=== PATIENT | male | born 1965 | race Caucasian/White ===

== ENCOUNTER 2019-07-12 09:12 | Inpatient (IN) | payer BC, SELFPAY ==
--- NOTE | ~2019-07-12 | CT_ITS ---
EXAMINATION: CT abdomen pelvis w con DATE: 07/12/2019 10:03 INDICATION: Suprapubic abdominal pain TECHNIQUE: Computed tomography (CT) of the abdomen and pelvis was performed without intravenous contr ast. Automated exposure control and iterative reconstruction technique were employed. Exam dose: 111 8.52 mGy-cm total exam DLP. COMPARISON: None. FINDINGS: The lung bases are clear. Normal heart size. No pericardial or pleural effusion. There are scattered hepatic cysts, measuring up to 7.5 mm. Otherwise no hepatic, splenic, pancreatic or right adrenal mass lesion. Approximately 10.7 x 13 mm left adrenal mass, likely a small adrenal adenoma if there is no history o f any primary malignancy. The gallbladder is present. No gallbladder wall thickening or pericholecystic fat stranding or fluid. No bile duct or pancreatic duct dilatation. No renal mass lesion is detected. 3 mm upper pole right renal nonobstructing calculus. No other urinary tract calculus. No hydrouretero nephrosis. There is minimal atherosclerotic calcification of the abdominal aorta no abdominal aortic aneurysm. N o intraperitoneal or retroperitoneal or pelvic mass lesion or adenopathy or ascites. There is an appr oximately 8 x 14 mm likely reactive lower aortocaval node. There is thickening of the wall of the sigmoid colon. There is prominent pericolic fat stranding in t he mid sigmoid area and some focal extraluminal gas along the posterior aspect of the mid sigmoid col on. There is phlegmon and possible early abscess formation in this area. The findings are consistent with diverticulitis. There are multiple diverticula of the left colon. Normal appendix. No bowel obstruction. There are degenerative changes of the lower thoracic spine. There is prominent degenerative disease a t L4-5 and L5-S1. No suspicious osteolytic or osteoblastic lesion is noted. IMPRESSION: Sigmoid diverticulitis with focal phlegmon and possibly early up to approximately 2 x 3 cm abscess formation at the posterior mid sigmoid area, with some focal extraluminal gas Diverticulosis of the left colon Hepatic cysts 10.7 x 13 mm left adrenal mass, likely an adrenal adenoma 3 mm nonobstructing upper pole right renal calculus Dr. Miguel telephoned the results to ER physician Dr. Del Toro on 07/12/2019 at 1021 hours Reviewed, dictated and finalized at [facility]. Reviewed, dictated and finalized at [facility]. IMPRESSION: Sigmoid diverticulitis with focal phlegmon and possibly early up t o approximately 2 x 3 cm abscess formation at the posterior mid sigmoid area, w ith some focal extraluminal gas Diverticulosis of the left colon Hepatic cysts 10.7 x 13 mm left adrenal mass, likely an adrenal adenoma 3 mm nonobstructing upper pole right renal calculus Dr. Miguel telephoned the results to ER physician Dr. Del Toro on 07/12/2019 at 10 21 hours
[2019-07-12 09:18] VITALS: BP 126/75; PULSE 66; RESP 16; TEMP 36.6; O2SAT 99
--- NOTE | 2019-07-12 09:26 | ED.ABDPAIN ---
HPI - Abdominal Pain General Chief Complaint: Abdominal Pain Stated Complaint: abd pain Time Seen by Provider: 07/12/19 09:23 History of Present Illness HPI narrative: 54 yo male w/ h/o perforated diverticulitis presents with Lower abdominal pain. He has had the pain for the past 1-2 weeks. It is intermittent. No clear causitive factors noted. Alleviated when he has a bowel movement, although he frequently feels like he needs to have a bowel movement and is not able to. Over the past few days he has also had dyuria and difficulty initiating a stream. He has had some subjective fevers, no measured temperature elevation. He previously had a perforated diverticultis about 8 years ago. No surgery required at that time. Related Data Home Medications Medication Instructions Recorded Confirmed No Home Medications 07/12/19 07/12/19 Allergies Allergy/AdvReac Type Severity Reaction Status Date / Time No Known Allergies Allergy Unverified 07/12/19 09:22 Review of Systems Review of Systems: All systems reviewed & are unremarkable except as noted in HPI and below Constitutional: Constitutional: Reports fever(s) Cardiovascular: Cardiovascular: Reports chest pain Respiratory: Respiratory: Reports dyspnea Gastrointestinal: Gastrointestinal: Reports abdominal pain, Reports constipation, Denies nausea and Denies vomiting Neurologic: Denies dizziness and Denies weakness PMFSH Past Medical History Medical History (Updated 07/12/19 @ 11:11 by Thiago Del Toro MD) Diverticulitis Social History Social History Gender identity (if verbalized by the patient): Male Exam Const: General: healthy appearing, no acute distress and alert Orientation/consciousness: patient oriented x3 HENMT: Head: normal to inspection Neck: Neck: normal visual inspection and no lymphadenopathy Chest: Chest palpation & inspection: no tenderness Resp: Effort & Inspection: normal respiratory effort Auscultation: clear to auscultation bilaterally, no rales, no rhonchi and no wheezes Cardio: Jugular venous distension: no JVD Rate: regular rate Rhythm: regular rhythm Heart sounds: no murmurs GI: Inspection: non-distended GI Palp: Yes Soft to palpation, Yes Tenderness to palpation present (GI) (suprapubic), No Guarding due to palpation present (GI) and No Rebound tenderness present Auscultation: normal bowel sounds Skin: General skin exam: normal color Neuro: General: patient oriented x3 and moves all extremities Speech: normal speech Extrem: General: no edema Psych: Appearance: well kempt Affect: normal affect Course Vital Signs Vital signs: Vital Signs Temperature 36.6 C 07/12/19 09:18 Pulse Rate 66 07/12/19 09:18 Respiratory Rate 16 07/12/19 09:18 Blood Pressure 126/75 07/12/19 09:18 Pulse Oximetry 99 07/12/19 09:18 Temperature 36.6 C 07/12/19 09:18 Pulse Rate 66 07/12/19 09:18 Respiratory Rate 16 07/12/19 09:18 Blood Pressure 126/75 07/12/19 09:18 Pulse Oximetry 99 07/12/19 09:18 MDM - Abdominal Pain MDM Narrative Medical decision making narrative: He has diverticulitis a small amount of free air and possible developing abscess. Mild WBC elevation. Otherwise labs and vitals stable. He should be a good candidate for admission to the medical floor. Antibiotics and fluids ordered. Case discussed with Dr. Ortez. He will admit the patient. Medical Records Attestation: I reviewed the patient's medical records. Lab Data Attestation: I reviewed the patient's lab results. Result diagrams: 07/12/19 09:27 07/12/19 09:57 Labs: Lab Results 07/12/19 07/12/19 07/12/19 Range/Units 09:27 09:27 09:27 WBC 12.3 H (4.5-10.0) K/mm3 RBC 4.92 (4.6-6.20) M/mm3 Hgb 14.5 (14.0-18.0) g/dL Hct 43.1 (42.0-52.0) % MCV 87.6 (80-100) fl MCH 29.5 (26-34) pg MCHC 33.6 (32-36) g/dl RD
[2019-07-12 09:34] LABS: Basophils Percent Auto 0.2 % (0.2-1.2); Eosinophils Absolute Auto 0.1 K/mm3 (0-0.3); Eosinophils Percent Auto 0.5 % (0-4.4); Hematocrit 43.1 % (42.0-52.0); Hemoglobin 14.5 g/dL (14.0-18.0); Immature Granulocyte Absolute 0.05 K/mm3 (0.00-0.031); Immature Granulocyte Percent A 0.4 % (0-0.5); Lymphocytes Absolute Auto 1.37 K/mm3 (0.9-3.2); Lymphocytes Percent Auto 11.1 % (18.3-44.2); Mean Corpuscular HGB Conc 33.6 g/dl (32-36); Mean Corpuscular Hemoglobin 29.5 pg (26-34); Mean Corpuscular Volume 87.6 fl (80-100); Mean Platelet Volume 9.5 fl (7.4-10.4); Monocytes Absolute Auto 1.1 K/mm3 (0.1-0.6); Monocytes Percent Auto 8.9 % (2.6-8.5); Neutrophils Absolute Auto 9.7 K/mm3 (1.3-6.7); Neutrophils Percent Auto 78.9 % (45.5-73.1); Platelet Count Result 259 k/mm3 (150-375); Red Blood Count 4.92 M/mm3 (4.6-6.20); Red Cell Distribution Width 12.9 % (11.5-14.5); White Blood Count 12.3 K/mm3 (4.5-10.0)
[2019-07-12 09:43] LABS: Add Urine Microscopic? YES; Appearance Urine Clear (Clear); Bacteria Urine Trace /hpf; Bilirubin Urine Negative (Negative); Blood Urine Negative (Negative); Color Urine Yellow (Yellow); Glucose Urine UA Negative (Negative); Ketones Urine 1+ mg/dL (Negative); Leukocyte Esterase Ur Negative LEU/UL (Negative); Mucus Urine Moderate /lpf; Nitrate Urine Negative (Negative); Protein Urine 1+ mg/dL (Negative); Specific Grav Ur 1.026 (1.001-1.035); Squamous Epithelial Cell Urine Rare /hpf (Few); WBC Urine 0-3 /hpf
[2019-07-12 09:47] LABS: Alanine Aminotransferase 28 U/L (4-50); Albumin Level 4.1 g/dL (3.5-5.1); Alkaline Phosphatase 74 U/L (38-126); Aspartate Amino Transferase 20 U/L (17-59); Bilirubin,Total 1.1 mg/dL (0.2-1.3); Blood Urea Nitrogen 11 mg/dL (9-20); Calcium 8.8 mg/dL (8.4-10.2); Carbon Dioxide 25 mmol/L (22-30); Chloride 105 mmol/L (98-107); Estimated CRCL calculation 117 ml/min; Estimated Glomerular Filt Rate > 60; Glucose 116 mg/dL (75-110); Lipase 47 U/L (23-300); Potassium 4.2 mmol/L (3.4-5.0); Sodium 136 mmol/L (137-145)
[2019-07-12 09:58] LABS: Estimated CRCL calculation 117 ml/min; Estimated Glomerular Filt Rate > 60
--- NOTE | 2019-07-12 11:34 | PM.IMHP ---
H&P: HPI History of Present Illness Chief complaint: abd pain Narrative: Benjamin Scruggs is a 54 year old male with a reported history of perforated diverticulitis about 7-8 years ago that was treated with IV antibiotics as an inpatient at [facility]. He reportedly had a colonoscopy with no concerning findings following his previous episode of diverticulitis by a Dr. Cm in [place]. Since then, he has had no other issues until about two months ago. He reports noticing some very mild intermittent lower abdominal discomfort, but would not associate this with pain. About 1-2 weeks ago, he started noticing some mild abdominal pain that was still intermittent in the lower abdomen. He did not seek medical treatment for the pain prior to today. Over the past few days, the pain has worsened at night, which has kept him awake due to the severity. Therefore, he decided to present to the emergency department for further evaluation. CT scan of the abdomen and pelvis showed sigmoid diverticulitis with focal phlegmon and possible early abscess formation measuring about 2 x 3 cm with some focal extraluminal gas. Labs revealed leukocytosis with a white blood cell count of 12,300. He is afebrile and vital signs stable. The patient was given a dose of IV Zosyn in the emergency room and our service was consulted due to the findings of acute diverticulitis with microperforation. The patient is now being seen in the ER and reports very mild lower abdominal pain. He states the pain is worse at night, but improved this morning. He has not eaten yet today, but reports he has been tolerating a diet without any nausea, vomiting, or bloating. Reports that over the past week, his bowels have become more loose and less frequent. Denies any bloody stools. Reports having chills with temperature max at home of 99.4F. No other complaints at this time. Review of Systems Constitutional: Constitutional: Reports as per HPI, Reports chills, Denies excessive sweating, Denies fatigue, Denies fever(s), Denies headache(s) and Denies weakness Eyes: Eyes: Denies change in vision and Denies loss of vision ENT: Reports Normal hearing present, Denies dysphagia, Denies dizziness, Denies headache(s), Denies hoarseness, Denies sinus pain, Denies sinus pressure and Denies sore throat Cardiovascular: Cardiovascular: Denies chest pain, Denies syncope, Denies leg edema, Denies lightheadedness, Denies radiating jaw, neck or arm pain and Denies dyspnea Respiratory: Respiratory: Denies chest congestion, Denies cough, Denies dyspnea, Denies dyspnea on exertion and Denies wheezing Gastrointestinal: Gastrointestinal: Reports as per HPI, Reports abdominal pain (lower), Denies melena, Denies bloating, Denies hematochezia, Reports change in stool character, Reports loose stools, Denies nausea and Denies vomiting Genitourinary: Genitourinary: Reports no additional male genitourinary complaints, Denies hematuria, Denies dysuria, Denies urinary incontinence and Denies urinary urgency Musculoskeletal: Musculoskeletal: Denies deformity, Denies joint swelling, Denies radiating pain into limb and Denies tingling Integumentary/Breasts: Skin/Breast: Denies pruritus, Denies wounds and Denies jaundice Neurologic: Reports Normal hearing present, Denies confusion, Denies dizziness, Denies syncope, Denies loss of vision, Denies tingling, Denies tremor(s) and Denies weakness Psychiatric: Psychiatric: Denies anxiety, Denies confusion and Denies depression Endocrine: Endocrine: Denies cold intolerance, Denies excessive sweating and Denies heat intolerance [facility] Past Medical History Medical History Diverticulitis Episode of perforated diverticulitis with abscess about 7-8 years ago treated at [facility]. Surgical History Surgical History History of colonoscopy 7-[address] Cm in [place]. Fa
[2019-07-12 11:35] VITALS: BP 124/97; PULSE 68; RESP 18; O2SAT 99
--- NOTE | 2019-07-12 14:08 | ADMGEN ---
This patient, Benjamin Scruggs, was admitted to Medical Room 342-01. Patient/family oriented to hospital policies and general routines including ID bracelet, bed and alarms, visiting hours, pain management, procedures, bathroom and other care routines, personal items, smoking policy, room service/diet, and visiting hours. Valuables list has been completed. Information on how to activate the Rapid Response Team has been discussed. Patient/Family are encouraged to report perceived risks to care and to ask questions if they do not understand what they are told or what they should do.
[2019-07-12] MEDS: LACTATED RINGERS 1,000 ML 150 ML IV CONT ×2 (14:24→21:27)
[2019-07-12 14:34] VITALS: BP 127/81; PULSE 98; RESP 20; TEMP 36.4; O2SAT 98
[2019-07-12] MEDS: ENOXAPARIN 40 MG/0.4 ML SYRINGE SUB-Q (18:02)
[2019-07-12 20:21] VITALS: BP 118/64; PULSE 64; RESP 14; TEMP 36.4; O2SAT 98
[2019-07-12] MEDS: FAMOTIDINE 20 MG/2 ML VIAL IV PUSH (21:44)
[2019-07-13] MEDS: LACTATED RINGERS 1,000 ML 150 ML IV CONT ×3 (04:58→20:31)
[2019-07-13 05:39] VITALS: BP 122/71; PULSE 56; RESP 14; TEMP 36.3; O2SAT 97
--- NOTE | 2019-07-13 05:40 | PC.NURSE ---
intake was 2 small cups of ice chips
[2019-07-13 06:51] LABS: Basophils Percent Auto 0.4 % (0.2-1.2); Eosinophils Absolute Auto 0.1 K/mm3 (0-0.3); Hematocrit 40.5 % (42.0-52.0); Hemoglobin 13.7 g/dL (14.0-18.0); Immature Granulocyte Absolute 0.01 K/mm3 (0.00-0.031); Immature Granulocyte Percent A 0.2 % (0-0.5); Lymphocytes Absolute Auto 1.28 K/mm3 (0.9-3.2); Lymphocytes Percent Auto 23.8 % (18.3-44.2); Mean Corpuscular HGB Conc 33.8 g/dl (32-36); Mean Corpuscular Hemoglobin 29.7 pg (26-34); Mean Corpuscular Volume 87.7 fl (80-100); Mean Platelet Volume 9.7 fl (7.4-10.4); Monocytes Absolute Auto 0.5 K/mm3 (0.1-0.6); Monocytes Percent Auto 9.7 % (2.6-8.5); Neutrophils Absolute Auto 3.4 K/mm3 (1.3-6.7); Neutrophils Percent Auto 63.9 % (45.5-73.1); Platelet Count Result 226 k/mm3 (150-375); Red Blood Count 4.62 M/mm3 (4.6-6.20); Red Cell Distribution Width 12.7 % (11.5-14.5); White Blood Count 5.4 K/mm3 (4.5-10.0)
[2019-07-13 07:05] LABS: Blood Urea Nitrogen 11 mg/dL (9-20); Calcium 8.2 mg/dL (8.4-10.2); Carbon Dioxide 25 mmol/L (22-30); Chloride 104 mmol/L (98-107); Estimated CRCL calculation 106 ml/min; Estimated Glomerular Filt Rate > 60; Glucose 97 mg/dL (75-110); Sodium 135 mmol/L (137-145)
[2019-07-13] MEDS: FAMOTIDINE 20 MG/2 ML VIAL IV PUSH (10:11)
[2019-07-13] MEDS: ENOXAPARIN 40 MG/0.4 ML SYRINGE SUB-Q (10:11)
--- NOTE | 2019-07-13 11:12 | PM.PNGS ---
Progress Note: A&P Assessment and Plan (1) Diverticulitis of colon with perforation: Qualifiers: Diverticulitis bleeding: without bleeding Qualified Code(s): K57.20 - Diverticulitis of large intestine with perforation and abscess without bleeding Code(s): K57.20 - Diverticulitis of large intestine with perforation and abscess without bleeding Status: Acute Assessment and Plan: Patient doing very well. White count has decreased to normal. Exam much improved as well. Will start clear liquids and advanced to fulls. Possibly home tomorrow on low residue diet. Discussed again the possibility of elective sigmoidectomy. He will also need a colonoscopy next month. Subjective Subjective Date/Time Seen: 07/13/19 11:12 Patient reports: no new complaints, pain is less (No pain at all since I saw him last night.), no flatus and no bowel movement Review of Systems Review of Systems: All systems reviewed & are unremarkable except as noted in HPI and below Constitutional: Constitutional: Denies headache(s) ENT: Denies headache(s) Cardiovascular: Cardiovascular: Denies chest pain and Denies dyspnea Respiratory: Respiratory: Denies cough and Denies dyspnea Gastrointestinal: Gastrointestinal: Reports as per HPI Neurologic: Denies confusion and Denies headache(s) Psychiatric: Psychiatric: Denies confusion Exam Const: General: comfortable and no acute distress; No confusion Orientation/consciousness: patient oriented x3 and No confusion GI: Inspection: normal to inspection, non-distended and obesity GI Palp: Yes Soft to palpation, No Tenderness to palpation present (GI), No Guarding due to palpation present (GI) and No Rebound tenderness present Auscultation: normal bowel sounds Neuro: General: patient oriented x3, no focal motor deficits and No confusion Extrem: General: no calf tenderness and no edema Psych: Affect: normal affect Insight: Good insight present (Psych) Judgement: Good judgement present (Psych) Objective Data Vital Signs Vital Signs: Vital Signs - 24 hr 07/12/19 11:35 07/12/19 14:34 07/12/19 20:21 Temperature 36.4 C 36.4 C Pulse Rate 68 98 64 Respiratory Rate 18 20 14 Blood Pressure 124/97 H 127/81 118/64 Pulse Oximetry 99 98 98 07/13/19 05:39 Temperature 36.3 C L Pulse Rate 56 L Respiratory Rate 14 Blood Pressure 122/71 Pulse Oximetry 97 Intake/Output Intake/Output: Intake & Output 07/10/19 07/11/19 07/12/19 07/13/19 23:59 23:59 23:59 23:59 Intake Total 1100 1160 Output Total 300 Balance 800 1160 Meds/Results Medications: Active Medications Generic Name Dose Route Start Last Admin Trade Name Freq PRN Reason Stop Dose Admin Enoxaparin Sodium 40 mg 07/12/19 18:00 07/13/19 10:11 Lovenox SUB-Q 40 mg DAILY ELGIN Administration Famotidine 20 mg 07/13/19 21:00 Pepcid PO Q12HR ELGIN Piperacillin/Tazobactam/Dextrose 3.375 gm in 50 mls @ 100 mls/hr 07/12/19 18:00 07/13/19 06:10 Zosyn 3.375 Gm/D5w 50ml Pm IVPB Infused Q6H ELGIN Infusion Lactated Ringer's 1,000 mls @ 150 mls/hr 07/12/19 11:00 07/13/19 04:58 Lr - Lactated Ringers Iv IV CONT 150 mls/hr .Q6H40M ELGIN Administration Ibuprofen 800 mg in 200 mls @ 400 mls/hr 07/12/19 12:00 Caldolor 800 Mg/200 Ml IVPB Q6H PRN Pain Rated 4-6 Morphine Sulfate 2 mg 07/12/19 10:57 Morphine Sulfate Inj IV PUSH Q1HR PRN Pain 7-10 Radiology Results: ITS Impressions Abdomen/Pelvis CT 07/12/19 10:09 IMPRESSION: Sigmoid diverticulitis with focal phlegmon and possibly early up to approximately 2 x 3 cm abscess formation at the posterior mid sigmoid area, with some focal extraluminal gas Diverticulosis of the left colon Hepatic cysts 10.7 x 13 mm left adrenal mass, likely an adrenal adenoma 3 mm nonobstructing upper pole right renal calculus Dr. Miguel telephoned the results to ER physician Dr. Del Toro on
[2019-07-13 14:44] VITALS: BP 139/82; PULSE 58; RESP 16; TEMP 36.1; O2SAT 97
--- NOTE | 2019-07-13 15:49 | PCDIET ---
Nutrition Consult/Edu Complete: Pt provided education and rationale for low fiber diet. Pt typically eats B: coffee, eloy estefani sausage sandwiches, L: Ham sandwich, chips, apple, D: balanced meal. He did remark he ate a lot of cashews prior to onset of symptoms. Pt likes veggies and fruits but does not eat a lot. 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 Mentions being constantly thirsty, possibly due to working outside. Glucose was elevated at 116 yesterday. Pt may benefit from A1c lab. We reviewed low fiber foods and cooking methods appropriate for the next few weeks. Once cleared by , edu was also provided on the benefit of increasing fiber to 25-35g/day custodial. Handouts and contact info provided.
[2019-07-13] MEDS: FAMOTIDINE 20 MG TABLET PO (20:34)
[2019-07-13 22:00] VITALS: BP 127/73; PULSE 55; RESP 14; TEMP 36.2; O2SAT 99
[2019-07-14] MEDS: LACTATED RINGERS 1,000 ML 150 ML IV CONT ×2 (03:56→11:39)
[2019-07-14 05:03] VITALS: BP 136/75; PULSE 51; RESP 14; TEMP 36; O2SAT 97
[2019-07-14 05:36] LABS: Hematocrit 38.9 % (42.0-52.0); Mean Corpuscular HGB Conc 33.4 g/dl (32-36); Mean Corpuscular Hemoglobin 29.4 pg (26-34); Mean Platelet Volume 9.9 fl (7.4-10.4); Platelet Count Result 244 k/mm3 (150-375); Red Blood Count 4.42 M/mm3 (4.6-6.20); Red Cell Distribution Width 12.5 % (11.5-14.5); White Blood Count 5.8 K/mm3 (4.5-10.0)
[2019-07-14 06:00] LABS: Blood Urea Nitrogen 8 mg/dL (9-20); Calcium 8.3 mg/dL (8.4-10.2); Carbon Dioxide 27 mmol/L (22-30); Chloride 106 mmol/L (98-107); Estimated CRCL calculation 106 ml/min; Estimated Glomerular Filt Rate > 60; Glucose 93 mg/dL (75-110); Potassium 3.8 mmol/L (3.4-5.0); Sodium 137 mmol/L (137-145)
[2019-07-14] MEDS: ENOXAPARIN 40 MG/0.4 ML SYRINGE SUB-Q (08:21)
[2019-07-14] MEDS: FAMOTIDINE 20 MG TABLET PO (08:21)
--- NOTE | 2019-07-14 12:08 | PM.DS ---
DS: Admitting Diagnosis Admitting Diagnosis Admitting Diagnosis: Diverticulitis of large intestine with perforation and abscess without bleeding DS: Discharge Diagnosis Discharge Diagnosis (1) Diverticulitis of colon with perforation: Qualifiers: Diverticulitis bleeding: without bleeding Qualified Code(s): K57.20 - Diverticulitis of large intestine with perforation and abscess without bleeding Code(s): K57.20 - Diverticulitis of large intestine with perforation and abscess without bleeding Status: Acute (2) Tobacco abuse: Code(s): Z72.0 - Tobacco use Status: Acute Assessment and Plan: Cessation encouraged. DS: Summary Hospital Course Reason for hospitalization: Benjamin Scruggs is a 54 year old male with a reported history of perforated diverticulitis about 7-8 years ago that was treated with IV antibiotics as an inpatient at [facility]. He reportedly had a colonoscopy with no concerning findings following his previous episode of diverticulitis by a Dr. Cm in [place]. Since then, he has had no other issues until about two months ago. He reports noticing some very mild intermittent lower abdominal discomfort, but would not associate this with pain. About 1-2 weeks ago, he started noticing some mild abdominal pain that was still intermittent in the lower abdomen. The pain continued to worsen and he presented to the ER for further evaluation. ED workup revealed sigmiod diverticulitis with microperforation and possible early abscess formation. The patient was admitted in this setting to our service. Hospital Course: He was started on IV Zosyn, IV fluids, analgesics, and bowel rest. He showed quick improvement over the next 24 hours and was advanced on his diet. Labs show a normal WBC count today and he has been afebrile. The patient is seen today with no complaints of abdominal pain, nausea, vomiting, or bloating. Reports having bowel movements today and yesterday that were loose but no blood. He reports a significant improvement in his overall tenderness as well. No other complaints at this time. Tolerating a full liquid diet. Dr. Ortez at the bedside to also evaluate the patient. I will advance his diet today to a low fiber diet (which he received education on by the Financial Processing Clerk) and he will be okay to discharge this afternoon if he continues to tolerate the low fiber diet. Discharge instructions discussed with the patient in detail and all questions answered. Status at Discharge Functional status at discharge: independent ambulation Overall status at discharge: patient is progressing back to baseline Time Spent with Patient Time attestation: Total time spent providing and/or coordinating discharge services: Time spent: Less than 30 minutes Exam Const: General: comfortable, no acute distress, alert and awake Orientation/consciousness: patient oriented x3 GI: Inspection: non-distended GI Palp: Yes Soft to palpation, Yes Tenderness to palpation present (GI) (mildly tender in mid lower abdomen, but remarkedly improved), No Guarding due to palpation present (GI) and No Rebound tenderness present Auscultation: normal bowel sounds Neuro: General: moves all extremities and no focal motor deficits Extrem: General: no calf tenderness and no edema Psych: Mental Status: mental status grossly normal Affect: normal affect Thought process: Normal thought process present Insight: Good insight present (Psych) Judgement: Good judgement present (Psych) DS: Data Data Completed and Pending Labs on day of discharge: Labs from last 24 hours 07/14/19 07/14/19 04:48 04:48 WBC 5.8 RBC 4.42 L Hgb 13.0 L Hct 38.9 L MCV 88.0 MCH 29.4 MCHC 33.4 RDW 12.5 Plt Count 244 MPV 9.9 Sodium 137 Potassium 3.8 Chloride 106 Carbon Dioxide 27 BUN 8 L Creatinine 1.00 Estim Creat Clear Calc 106 Estimated GFR > 60 Glucose 93 Calcium 8.3 L Discharge Plan Discha
== END 2019-07-14 14:30 | disposition home or self-care (01) | DRG 392 ==
LOC: ANHED 11:33 → ANH3MED 13:30
PROVIDERS: Nurse Practitioner Family; Admitting Provider Surgery; Emergency Provider Emergency Medicine; Visit Provider Surgery
DX: K57.20 Diverticulitis of large intestine with perforation and abscess without bleeding (principal); F17.210 Nicotine dependence, cigarettes, uncomplicated
CPT/HCPCS: 36415; 74177; 80048; 80053; 81001; 83690; 85025; 85027; 96365; 99285; A9270; J1650; J2543; J7120; Q9967

== ENCOUNTER 2019-09-19 00:42 | Outpatient (CLI) | payer BC, SELFPAY ==
[2019-09-19 18:36] LABS: SARS-CoV-2 RNA PCR Negative
== END 2019-09-19 00:43 | disposition home or self-care (01) ==
LOC: ANHCOVIDDT 00:42
PROVIDERS: Visit Provider Internal Medicine Gastroenterology
DX: Z01.812 Encounter for preprocedural laboratory examination (principal); Z11.59 Encounter for screening for other viral diseases
CPT/HCPCS: 87635; C9803; U0003

== ENCOUNTER 2019-09-21 01:39 | Day surgery (SDC) | payer BC, SELFPAY ==
[2019-09-13 12:37] VITALS: BMI 32.5
[2019-09-21 07:02] VITALS: BP 108/80; PULSE 63; RESP 18; TEMP 36.2; O2SAT 98
[2019-09-21] MEDS: LACTATED RINGERS 1,000 ML 150 ML IV CONT (07:12)
--- NOTE | 2019-09-21 07:34 | P.PNAN_ITS ---
Anes - Initial Pre Proc Eval Procedure: Operation Date: 09/21/19 08:00 Proposed Procedures p Screening Colonoscopy - Nimesh Felipe DO Date/Time: 09/21/19 07:34 Surgeon: Nimesh Felipe DO Pre Op Diagnosis: neoplasm screening Patient Data Age: 54 Gender: M Height: 6 ft 3 in Weight: 115.4 kg Last Vital Signs Temp 36.2 C L 09/21/19 07:02 Pulse 63 09/21/19 07:02 Resp 18 09/21/19 07:02 BP 108/80 09/21/19 07:02 Pulse Ox 98 09/21/19 07:02 Allergies Allergy/AdvReac Type Severity Reaction Status Date / Time No Known Allergies Allergy Verified 09/21/19 07:01 Home Medications Medication Instructions Recorded Confirmed Type No Home Medications 09/13/19 09/21/19 History Patient hx anesthesia problems: none Family hx anesthesia problems: none PMFSH Past Medical History Medical History Diverticulitis Episode of perforated diverticulitis with abscess about 7-8 years ago treated at [facility]. Surgical History Surgical History History of colonoscopy 7-[address] Cm in [place]. Family History Family History Sibling Leukemia Mother Diabetes mellitus Social History Social History Social History: The patient lives at home with his . 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 Does not have an established PCP - previously was followed by Dr. Hamm. Smoking packs per day: 1 Smoking cigarettes per day: 20.0 Years smoked: 30 Smoking pack-years: 30.00 Smoking status: Current every day smoker Tobacco type: cigarettes Alcohol intake: never Substance use: never Gender identity (if verbalized by the patient): Male Spiritual care concerns: No Anes - Eval Final PreProcedure Day of Procedure 09/21/19 07:34 Patient weight: obese Heart: regular rate and rhythm Lungs: clear to auscultation Airway: Mallampati scale class II Neurological: alert and oriented Last oral intake: >/= 8 hours ASA classification: II Emergent: no Anesthetic plan: proceed Anesthesia type and monitoring: general GIVS and standard monitoring Informed Consent: The patient's anesthetic plan and its attendant risks and benefits were discussed with the patient/family/POA. Questions were solicited and answers provided to the satisfaction of the patient/family/POA.
--- NOTE | 2019-09-21 08:20 | PM.IMHP ---
H&P: [facility] History of Present Illness Date/Time: 09/21/19 08:20 Chief complaint: neoplasm screening Narrative: This very pleasant gentleman's here for colonoscopy. This very pleasant gentleman seen at the request of the primary physician. The patient examined and chart review. Impression: History of diverticulitis. The patient is here for screening colonoscopy. Tobacco abuse. Recommendation: Colonoscopy. History: For pleasant gentleman is a negative GI review systems. He has a history of diverticulitis with abscess. He is here for screening colonoscopy. The patient does have history of occasional shortness of breath. Physical examination: General: very pleasant patient in no acute distress. HEENT: Head was normocephalic sclerae is clear mouth without masses neck was supple. Heart: Rate rhythm regular without S3 or S4. Lungs: CTA. Abdomen: Soft with no guarding or rigidity. Bowel sounds were active. Neurologic: Cranial nerves 2 through 12 intact. No focal defects. No clonus. Musculoskeletal system: Revealed no joint tenderness or swelling no muscle atrophy. Extremities: Reveal no significant edema. Skin: Warm and dry with normal turgor. Mental status: intact. Patient is alert and oriented. Review of Systems Review of Systems: All systems reviewed & are unremarkable except as noted in HPI and below PMFSH Past Medical History Medical History Diverticulitis Episode of perforated diverticulitis with abscess about 7-8 years ago treated at [facility]. Surgical History Surgical History History of colonoscopy 7-[address] Cm in [place]. Family History Family History Sibling Leukemia Mother Diabetes mellitus Social History Social History Social History: The patient lives at home with his . 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 Does not have an established PCP - previously was followed by Dr. Hamm. Smoking packs per day: 1 Smoking cigarettes per day: 20.0 Years smoked: 30 Smoking pack-years: 30.00 Smoking status: Current every day smoker Tobacco type: cigarettes Alcohol intake: never Substance use: never Gender identity (if verbalized by the patient): Male Spiritual care concerns: No Meds Home Medications and Allergies Home Medications Medication Instructions Recorded Confirmed Type No Home Medications 09/13/19 09/21/19 History Allergies Allergy/AdvReac Type Severity Reaction Status Date / Time No Known Allergies Allergy Verified 09/21/19 07:01 Vital Signs Vital Signs - 24 hr 09/21/19 07:02 Temperature 36.2 C L Pulse Rate 63 Respiratory Rate 18 Blood Pressure 108/80 Pulse Oximetry 98
[2019-09-21 08:42] VITALS: BP 110/84; PULSE 56; RESP 20; O2SAT 97
[2019-09-21 08:52] VITALS: BP 124/92; PULSE 54; RESP 13; O2SAT 97
[2019-09-21 09:02] VITALS: BP 121/95; PULSE 57; RESP 13; O2SAT 100
== END 2019-09-21 09:15 | disposition home or self-care (01) ==
PROVIDERS: Referring Provider Surgery; Visit Provider Internal Medicine Gastroenterology
PROC: 0DJD8ZZ Inspection of Lower Intestinal Tract, Via Natural or Artificial Opening Endoscopic (ICD-10-PCS; CPT 45378; principal; 2019-09-21 08:00)
DX: Z12.11 Encounter for screening for malignant neoplasm of colon (principal); K57.30 Diverticulosis of large intestine without perforation or abscess without bleeding; K64.8 Other hemorrhoids; Z87.19 Personal history of other diseases of the digestive system; F17.210 Nicotine dependence, cigarettes, uncomplicated
CPT/HCPCS: 45378; J2001; J2704; J7120

== ENCOUNTER 2021-09-27 05:13 | Inpatient (IN) | payer BC, SELFPAY ==
--- NOTE | ~2021-09-27 | CT_ITS ---
EXAMINATION: CT abdomen pelvis w con DATE: 09/28/2021 13:53 INDICATION: Right lower quadrant abdominal pain. Diverticulitis. TECHNIQUE: Computed tomography (CT) of the abdomen and pelvis was performed with 100 mL Omnipaque 350 intravenous contrast. Automated exposure control and iterative reconstruction technique were employe d. The dose-length product was 1431.99 mGy-cm. COMPARISON: CT abdomen and pelvis 09/27/2021 FINDINGS: The visualized portions of the lung bases demonstrate mild atelectasis. No pleural effusion . The heart size is normal. No pericardial effusion. There is an 8 mm cyst in the liver. The gallblad terry is normal. There is a 13 mm low-attenuation lesion in the spleen, likely benign. The pancreas and and right adrenal gland are normal. There is a 12 mm mass in left adrenal gland measuring low-attenu ation the prior CT, consistent with an adenoma. The kidneys are normal. There are scattered diverticu la in the colon. There is wall thickening of sigmoid colon. There is fluid and gas in the mesentery a djacent to the sigmoid colon. There is fluid and gas in the peritoneum on the right. There is a large volume of free intraperitoneal gas. There is fat stranding in the perisigmoid region and right lower quadrant. There is wall thickening of distal ileum, consistent with peritonitis. There is prominent fat in right inguinal canal that may be a hernia. There are no pathologically enlarged lymph nodes. T here is a left hydrocele. There is severe lumbar spondylosis. There is a chronic anterior wedging of multiple lower thoracic vertebral bodies. IMPRESSION: 1. Perforated sigmoid diverticulitis with worsened large volume of free intraperitoneal gas, worsened free fluid in the right lower quadrant, and peritonitis involving distal ileum. Reviewed, dictated and finalized at location A. IMPRESSION: 1. Perforated sigmoid diverticulitis with worsened large volume of free intrape ritoneal gas, worsened free fluid in the right lower quadrant, and peritonitis involving distal ileum.
--- NOTE | ~2021-09-27 | CT_ITS ---
EXAMINATION: CT abdomen pelvis wo con DATE: 09/27/2021 05:58 INDICATION: Low abdominal pain. Diarrhea. TECHNIQUE: Computed tomography (CT) of the abdomen and pelvis was performed without intravenous contr ast. Automated exposure control and iterative reconstruction technique were employed. The dose-length product was 1377.80 mGy-cm. COMPARISON: CT abdomen and pelvis 07/12/2019 FINDINGS: The visualized portions of the lung bases demonstrate mild atelectasis. No pleural effusion . The heart size is normal. No pericardial effusion. There is diffuse hepatic steatosis. There are cy sts in the liver measuring up to 7 mm. The gallbladder is normal. There is a 13 mm low-attenuation ma ss in the spleen that may be a cyst, hemangioma, or granulomatous disease. The pancreas and right adr enal gland are normal. There is a 14 mm mass in left adrenal gland measuring low-attenuation, consist ent with an adenoma. The kidneys are normal. There is no urolithiasis. There are scattered diverticul a in the colon. There is fat stranding around sigmoid colon with localized free intraperitoneal gas. There are other scattered small foci of free gas in the peritoneum. The appendix is normal. There is trace ascites. There is prominent fat in right inguinal canal that may be a hernia. There are no path ologically enlarged lymph nodes. There is severe lumbar spondylosis. IMPRESSION: 1. Perforated sigmoid diverticulitis. No drainable abscess. Reviewed, dictated and finalized at location A.
[2021-09-27 05:17] VITALS: BP 122/90; PULSE 92; RESP 17; TEMP 36.7; O2SAT 97
--- NOTE | 2021-09-27 05:23 | ED.ABDPAIN ---
HPI - Abdominal Pain General Chief Complaint: Abdominal Pain Stated Complaint: abd pain Time Seen by Provider: 09/27/21 05:16 Source: RN notes reviewed History of Present Illness HPI narrative: Patient presents emergency department from home for abdominal pain. Patient states pain began 2 days ago. The pain is located in the bilateral lower abdomen worse on the left and does not radiate described as sharp and stabbing denies any nausea vomiting or diarrhea he denies any fevers or chills states he has a history of both kidney stones as well as a perforated colon x2 Related Data Home Medications Medication Instructions Recorded Confirmed No Home Medications 09/13/19 09/21/19 Allergies Allergy/AdvReac Type Severity Reaction Status Date / Time No Known Allergies Allergy Verified 09/27/21 05:23 Review of Systems Review of Systems: Gen.: Denies fevers or chills ENT: Denies congestion Respiratory: Denies shortness of breath or cough CV: Denies chest pain or palpitations GI: See HPI denies burning, urgency, frequency or hematuria Musculoskeletal: Denies back pain or muscle pain Neuro: Denies numbness, tingling, weakness or focal weakness Skin: Denies rash Except as documented, all other systems reviewed and negative [facility] Past Medical History Medical History (Updated 09/27/21 @ 06:33 by Andrew Guillen DO) Diverticulitis Episode of perforated diverticulitis with abscess about 7-8 years ago treated at [facility]. Surgical History Surgical History History of colonoscopy 7-[address] Cm in [place]. Family History Family History Sibling Leukemia Mother Diabetes mellitus Social History Social History Social History: The patient lives at home with his . 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 Does not have an established PCP - previously was followed by Dr. Hamm. Smoking packs per day: 1 Smoking cigarettes per day: 20.0 Years smoked: 30 Smoking pack-years: 30.00 Smoking status: Current every day smoker Tobacco type: cigarettes Alcohol intake: never Alcohol use details: Occasional alcohol use. Not daily. Substance use: never Gender identity (if verbalized by the patient): Male Spiritual care concerns: No Exam Narrative: APPEARANCE: No acute distress, nontoxic, resting in bed HEENT: Normocephalic, atraumatic, OMM RESPIRATORY: No respiratory distress, clear to auscultation bilaterally with no rhonchi wheezing or rales CARDIOVASCULAR: RRR s murmur ABDOMINAL: Soft nondistended tender palpation right lower quadrant left lower quadrant no tenderness right upper quadrant left upper quadrant no rebound or guarding MUSCULOSKELETAl: Moves all extremities. No clubbing, cyanosis or edema. NEURO: Awake and alert. Following commands, speech normal, no focal deficits SKIN:: Warm, dry. Normal Color PSYCHIATRIC: Normal affect/mood Course Course Emergency Course: Discussed with Dr. Ortez presentation work-up agrees with consult agrees with plan for Zosyn Discussed with ISABEL Crow for Dr. Luna agrees with admission Discussed with patient and family results of workup and diagnosis. Discussed need for admission. Patient and family understand and agree to current treatment plan Vital Signs Vital signs: Vital Signs Temperature 98.0 F 09/27/21 05:17 Pulse Rate 92 09/27/21 05:17 Respiratory Rate 17 09/27/21 05:17 Blood Pressure 122/90 09/27/21 05:17 Pulse Oximetry 97 09/27/21 05:17 Oxygen Delivery Room Air 09/27/21 05:17 Temperature 98.0 F 09/27/21 06:53 Pulse Rate 75 09/27/21 06:53 Respiratory Rate 19 09/27/21 06:53 Blood Pressure 134/81 09/27/21 06:53 Pulse Oximetry 97 09/27/21 06:53 Oxygen Delivery Room Air 09/27/21 05:17 MDM - Abdominal Pain Lab D
[2021-09-27] MEDS: MORPHINE SULFATE (*CRX) 4 MG/ML INJ IV PUSH ×6 (05:26→20:23)
[2021-09-27] MEDS: SODIUM CHLORIDE 0.9% IV 1,000 ML 999 ML IV CONT (05:26)
[2021-09-27 05:35] LABS: Basophils Percent Auto 0.2 % (0.2-1.2); Eosinophils Absolute Auto 0.1 K/mm3 (0-0.3); Eosinophils Percent Auto 0.7 % (0-4.4); Hematocrit 46.8 % (42.0-52.0); Immature Granulocyte Absolute 0.07 K/mm3 (0.00-0.031); Immature Granulocyte Percent A 0.5 % (0-0.5); Lymphocytes Percent Auto 5.9 % (18.3-44.2); Mean Corpuscular HGB Conc 34.2 g/dl (32-36); Mean Corpuscular Hemoglobin 29.7 pg (26-34); Mean Platelet Volume 9.4 fl (7.4-10.4); Monocytes Absolute Auto 1.1 K/mm3 (0.1-0.6); Monocytes Percent Auto 7.1 % (2.6-8.5); Neutrophils Percent Auto 85.6 % (45.5-73.1); Platelet Count Result 261 k/mm3 (150-375); Red Blood Count 5.38 M/mm3 (4.6-6.20); Red Cell Distribution Width 12.9 % (11.5-14.5); White Blood Count 15.1 K/mm3 (4.5-10.0)
[2021-09-27 05:42] LABS: Alanine Aminotransferase 21 U/L (6-50); Albumin Level 4.3 g/dL (3.5-5.1); Alkaline Phosphatase 91 U/L (38-126); Anion Gap 12 mmol/L (8-16); Aspartate Amino Transferase 21 U/L (17-59); Blood Urea Nitrogen 17 mg/dL (9-20); Calcium 8.7 mg/dL (8.4-10.2); Carbon Dioxide 20 mmol/L (22-30); Chloride 105 mmol/L (98-107); Estimated CRCL calculation 94 ml/min; Estimated Glomerular Filt Rate > 60; Glucose 130 mg/dL (65-110); Lipase 25 U/L (23-300); Potassium 4.2 mmol/L (3.4-5.0); Sodium 137 mmol/L (137-145)
--- NOTE | 2021-09-27 06:38 | PC.NURSE ---
Patient aware of need for urine specimen, states he is unable to provide one at this time. Patient a/ox4, refusing straight cath.
[2021-09-27 06:53] VITALS: BP 134/81; PULSE 75; RESP 19; TEMP 36.7; O2SAT 97
[2021-09-27 07:04] LABS: Lactic Acid Reflex 1.3 mmol/L (0.7-2.0)
[2021-09-27 07:09] LABS: Appearance Urine Clear (Clear); Bilirubin Urine 2+ (Negative); Blood Urine Trace-lysed (Negative); Color Urine Yellow (Yellow); Glucose Urine UA Negative (Negative); Ketones Urine 4+ mg/dL (Negative); Leukocyte Esterase Ur Negative LEU/UL (Negative); Nitrate Urine Negative (Negative); Protein Urine 1+ mg/dL (Negative); Specific Grav Ur >= 1.030 (1.001-1.035); pH Urine 5.5 (5.0-9.0)
[2021-09-27 07:16] LABS: Add Urine Microscopic? YES; Mucus Urine Heavy /lpf; Squamous Epithelial Cell Urine Occasional /hpf (Few)
--- NOTE | 2021-09-27 07:25 | ADMGEN ---
This patient, Benjamin Scruggs, was admitted to Medical Room 248-. Patient/family oriented to hospital policies and general routines including ID bracelet, bed and alarms, visiting hours, pain management, procedures, bathroom and other care routines, personal items, smoking policy, room service/diet, and visiting hours. Information on how to activate the Rapid Response Team has been discussed. Patient/Family are encouraged to report perceived risks to care and to ask questions if they do not understand what they are told or what they should do.
--- NOTE | 2021-09-27 07:36 | PM.IMHP ---
H&P: HPI History of Present Illness Date/Time: 09/27/21 07:36 Chief Complaint: Abdominal pain Narrative: 56-year-old male with past medical history significant for kidney stones, obesity, diverticulitis with perforation x2 and previous colonic abscess secondary to diverticulitis is presenting with abdominal pain for the last week. He states over the last 2 days it has gotten significantly worse, and is now a sharp and stabbing in his lower abdomen. He denies any fevers or chills. He does admit to some nausea with emesis. He did have an episode of diarrhea as well. He also states he has been urinating less frequently and is concerned that he might be dehydrated. 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 He is hoping to avoid surgery, but was told that if this happened again he likely would need a partial colectomy. He did have this episode about 10 years ago, around 2012, at [facility], during that time he also had an associated abscess that required drainage. He had a recurrence at [facility] in July of 2019. In 2019, he was started on Zosyn and bowel rest. He was noted to have micro perforation with his diverticulitis and possible abscess. His symptoms improved on antibiotics and bowel rest, diet was advanced as tolerated. He was discharged in good condition with outpatient follow-up. Did have a colonoscopy that did not seem to indicate any other etiology of his recurrent diverticulitis with perforation other than the diverticulosis. In the ER, CT scan was done that did show the diverticulitis with perforation and free peritoneal air. No fluid collection noted. He was started on Zosyn, General surgery was consulted, he was made NPO and given morphine for pain control. He did develop some heartburn symptoms and had an episode of emesis after which he stated he felt much better. He is now mainly complaining of being extremely thirsty, admits to continued abdominal pain but states it is much better with the morphine. Review of Systems Review of Systems: 12 point review of systems was assessed and was negative except as noted in the HPI [facility] Past Medical History Medical History Diverticulitis Episode of perforated diverticulitis with abscess about 7-8 years ago treated at [facility]. Surgical History Surgical History History of colonoscopy 7-[address] Cm in [place]. Family History Family History Sibling Leukemia Mother Diabetes mellitus Social History Social History Social History: The patient lives at home with his . 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 Does not have an established PCP - previously was followed by Dr. Hamm. Smoking packs per day: 1 Smoking cigarettes per day: 20.0 Years smoked: 30 Smoking pack-years: 30.00 Smoking status: Current every day smoker Alcohol intake: never Alcohol use details: Occasional alcohol use. Not daily. Substance use: never Gender identity (if verbalized by the patient): Male Spiritual care concerns: No Meds Home Medications and Allergies Home Medications Medication Instructions Recorded Confirmed Type No Home Medications 09/13/19 09/27/21 History Allergies Allergy/AdvReac Type Severity Reaction Status Date / Time No Known Allergies Allergy Verified 09/27/21 05:23 Vital Signs Vital Signs - 24 hr 09/27/21 05:17 09/27/21 06:53 Temperature 98.0 F 98.0 F Pulse Rate 92 75 Respiratory Rate 17 19 Blood Pressure 122/90 134/81 Pulse Oximetry 97 97 Oxygen Delivery Room Air Exam Narrative: General: No acute distress, alert and oriented per baseline HEENT: Atraumatic, normocephalic, mucous membranes moist C
[2021-09-27 08:10] VITALS: BMI 33.6
[2021-09-27] MEDS: PANTOPRAZOLE SODIUM IV 40 MG VIAL IV PUSH (09:22)
[2021-09-27] MEDS: ONDANSETRON INJ 4 MG/2 ML VIAL IV PUSH (11:40)
[2021-09-27] MEDS: SODIUM CHLORIDE 0.9% IV 1,000 ML 125 ML IV CONT ×2 (11:40→21:30)
[2021-09-27 14:00] VITALS: BP 127/70; PULSE 78; RESP 18; TEMP 37; O2SAT 96
--- NOTE | 2021-09-27 14:53 | PM.CNGS ---
Assessment and Plan Assessment and plan (1) Diverticulitis of colon with perforation: Code(s): K57.20 - Diverticulitis of large intestine with perforation and abscess without bleeding Status: Acute Assessment and Plan: recurrent episode of diverticulitis. I explained to the patient that the plan is still the same as 2 years ago. He is still pretty uncomfortable despite the morphine. Will start IV ibuprofen q.6 hours on a scheduled dose. Morphine will still be available p.r.n.. He can have some ice chips but I would keep him NPO for now. We did briefly discuss elective sigmoidectomy once his infection has healed. 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 I explained that this could certainly be done assuming he does not require surgery or have other complications from this episode. He just had a colonoscopy 2 years ago so I do not think he would need to have that repeated. Thank you for asking me to see this patient in consultation. I will follow along with you. (2) Tobacco abuse: Code(s): Z72.0 - Tobacco use Status: Chronic Assessment and Plan: Advised to quit. History of Present Illness Consult details Consult date: 09/27/21 Reason for consult: abdominal pain Requesting physician: Andrew Guillen DO Narrative: patient is a 56-year-old man whom I had seen in July of 2019 for acute diverticulitis. He had been in the hospital and this had resolved with antibiotic treatment and bowel rest. We discussed elective laparoscopic sigmoidectomy but did not follow through with the surgery. Patient did have a colonoscopy 09/21/2019 which did not show any sign of malignancy. Did show diverticulosis. Patient started having abdominal pain evening. It was in the suprapubic area. It got worse and then around 4:00 a.m. this morning he drank quite a bit of water and developed excruciating pain. He came to the emergency room. He was noted to have diffuse tenderness and leukocytosis. CT scan showed evidence of recurrent diverticulitis with a small focus of intraperitoneal air in the area the sigmoid colon. He is admitted now for bowel rest and IV antibiotics. He is seen in consultation. This is actually the 3rd significant case of diverticulitis that he has experienced. The 1st was 9 or 10 years ago. Review of Systems Review of Systems: All systems reviewed & are unremarkable except as noted in HPI and below ( HPI and those items noted below) Constitutional: Constitutional: Denies chills and Denies fever(s) Cardiovascular: Cardiovascular: Denies chest pain, Denies diaphoresis, Denies dyspnea and Denies paroxysmal nocturnal dyspnea Respiratory: Respiratory: Denies chest congestion, Denies cough and Denies dyspnea Integumentary/Breasts: Skin/Breast: Denies lesions and Denies rash PMFSH Past Medical History Medical History (Updated 09/27/21 @ 15:00 by Tha Ortez MD) Diverticulitis Episode of perforated diverticulitis with abscess about 7-8 years ago treated at [facility]. Surgical History Surgical History History of colonoscopy 7-[address] Cm in [place]. Family History Family History Sibling Leukemia Mother Diabetes mellitus Social History Social History Social History: The patient lives at home with his . 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 Does not have an established PCP - previously was followed by Dr. Hamm. Smoking packs per day: 1 Smoking cigarettes per day: 20.0 Years smoked: 30 Smoking pack-years: 30.00 Smoking status: Current every day smoker Alcohol intake: never Alcohol use details: Occasional alcohol use. Not daily. Substance use: never Gender identity (if verbalized by the patient): Male Spir
[2021-09-27] MEDS: ENOXAPARIN 40 MG/0.4 ML SYRINGE SUB-Q (17:22)
[2021-09-27] MEDS: IBUPROFEN IV 800 MG/200 ML 800 MG/200 ML BAG 400 MG IVPB ×2 (17:22→23:32)
[2021-09-27 19:56] VITALS: BP 126/74; PULSE 76; RESP 16; TEMP 36.4; O2SAT 94
[2021-09-27] MEDS: HYDROmorphone HCL INJ (*CRX) 1 MG/ML SYR 0.5 MG IV PUSH ×2 (21:10→23:49)
[2021-09-28] VITALS (15 sets, daily range): BP systolic 123–154; BP diastolic 75–96; PULSE 70–95; RESP 10–20; TEMP 36.4–37.7; O2SAT 92–96
[2021-09-28] MEDS: HYDROmorphone HCL INJ (*CRX) 1 MG/ML SYR 0.5 MG IV PUSH ×3 (04:08→11:29)
[2021-09-28 05:11] LABS: Basophils Percent Auto 0.1 % (0.2-1.2); Eosinophils Percent Auto 0.2 % (0-4.4); Hematocrit 41.1 % (42.0-52.0); Hemoglobin 13.8 g/dL (14.0-18.0); Immature Granulocyte Absolute 0.07 K/mm3 (0.00-0.031); Immature Granulocyte Percent A 0.5 % (0-0.5); Lymphocytes Absolute Auto 0.65 K/mm3 (0.9-3.2); Lymphocytes Percent Auto 4.6 % (18.3-44.2); Mean Corpuscular HGB Conc 33.6 g/dl (32-36); Mean Corpuscular Hemoglobin 29.7 pg (26-34); Mean Corpuscular Volume 88.4 fl (80-100); Mean Platelet Volume 9.6 fl (7.4-10.4); Monocytes Absolute Auto 0.9 K/mm3 (0.1-0.6); Neutrophils Absolute Auto 12.6 K/mm3 (1.3-6.7); Neutrophils Percent Auto 88.6 % (45.5-73.1); Platelet Count Result 210 k/mm3 (150-375); Red Blood Count 4.65 M/mm3 (4.6-6.20); Red Cell Distribution Width 13.5 % (11.5-14.5); White Blood Count 14.2 K/mm3 (4.5-10.0)
[2021-09-28 05:22] LABS: Alanine Aminotransferase 16 U/L (6-50); Albumin Level 3.4 g/dL (3.5-5.1); Alkaline Phosphatase 78 U/L (38-126); Anion Gap 9 mmol/L (8-16); Aspartate Amino Transferase 13 U/L (17-59); Bilirubin,Total 1.9 mg/dL (0.2-1.3); Blood Urea Nitrogen 20 mg/dL (9-20); Calcium 8.1 mg/dL (8.4-10.2); Carbon Dioxide 20 mmol/L (22-30); Chloride 109 mmol/L (98-107); Estimated CRCL calculation 96 ml/min; Estimated Glomerular Filt Rate > 60; Glucose 125 mg/dL (65-110); Sodium 138 mmol/L (137-145)
[2021-09-28] MEDS: IBUPROFEN IV 800 MG/200 ML 800 MG/200 ML BAG 400 MG IVPB ×2 (06:21→12:43)
[2021-09-28] MEDS: ENOXAPARIN 40 MG/0.4 ML SYRINGE SUB-Q (08:13)
[2021-09-28] MEDS: PANTOPRAZOLE SODIUM IV 40 MG VIAL IV PUSH (08:13)
[2021-09-28] MEDS: SODIUM CHLORIDE 0.9% IV 1,000 ML 125 ML IV CONT (08:14)
--- NOTE | 2021-09-28 10:30 | PM.IMPN ---
Progress Note: A&P Assessment and Plan (1) Diverticulitis of colon with perforation: Code(s): K57.20 - Diverticulitis of large intestine with perforation and abscess without bleeding Status: Acute Assessment and Plan: Diverticulitis with recurrent perforation without abscess, general surgery consult pending, 3rd episode in 10 years Continue Zosyn, NPO, IV fluids, pain control with morphine Patient was offered an elective sigmoidectomy in the past and declined, no surgical intervention necessary at this point Update: repeat CT scan ordered, worsening, OR today (2) Tobacco abuse: Code(s): Z72.0 - Tobacco use Status: Chronic Assessment and Plan: Smoking cessation discussed Plan DVT prophylaxis with SCDs GI prophylaxis with PPI Code status full code Subjective Date/time seen: 09/28/21 10:30 Interval history: Worsening abdominal pain. Surgery rec OR today. Imaging shows worsening of diverticulitis with developing free air and fluid in the pelvis. Patient in agreement with surgery. No overnight events noted. No chest pain or shortness of breath. No nausea, vomiting or diarrhea. No fevers or chills. Review of Systems Review of Systems: 12 point review of systems was assessed and was negative except as noted in the HPI Exam Narrative: Patient in the shower, then heading to the OR Objective Data Vital Signs Vital Signs: Vital Signs - 24 hr 09/27/21 14:00 09/27/21 19:56 09/27/21 20:06 Temperature 98.6 F 97.6 F Pulse Rate 78 76 Respiratory Rate 18 16 Blood Pressure 127/70 126/74 Pulse Oximetry 96 94 Oxygen Delivery Room Air 09/28/21 04:14 Temperature 97.6 F Pulse Rate 70 Respiratory Rate 12 Blood Pressure 123/75 Pulse Oximetry 95 Oxygen Delivery Intake/Output Intake/Output: Intake & Output 09/25/21 09/26/21 09/27/21 09/28/21 23:59 23:59 23:59 23:59 Intake Total 2590 1250 Balance 2590 1250 Meds/Results Medications: Active Medications Generic Name Dose Route Start Last Admin Trade Name Freq PRN Reason Stop Dose Admin Enoxaparin Sodium 40 mg 09/28/21 09:00 09/28/21 08:13 Enoxaparin 40 Mg/0.4 Ml Syringe SUB-Q 40 mg DAILY ELGIN Administration Hydromorphone HCl 0.5 mg 09/27/21 21:01 09/28/21 07:41 Hydromorphone Hcl Inj (*Crx) 1 Mg/Ml Syr IV PUSH 0.5 mg Q3H PRN Administration Pain Rated 7-10 Piperacillin/Tazobactam/Dextrose 3.375 gm in 50 mls @ 100 mls/hr 09/27/21 12:00 09/28/21 05:16 Zosyn 3.375 Gm/D5w 50ml Pm IVPB 100 mls/hr Q6H ELGIN Administration Sodium Chloride 1,000 mls @ 125 mls/hr 09/27/21 06:30 09/28/21 08:14 Normal Saline Iv IV CONT 125 mls/hr .Q8H ELGIN Administration Ibuprofen 800 mg in 200 mls @ 400 mls/hr 09/27/21 18:00 09/28/21 06:21 Caldolor 800 Mg/200 Ml IVPB 400 mls/hr Q6HR ELGIN Administration Morphine Sulfate 2 mg 09/27/21 14:49 Morphine Sulfate (*Crx) 2 Mg/Ml Inj IV PUSH Q2H PRN Pain Rated 4-6 Ondansetron HCl 4 mg 09/27/21 11:11 09/27/21 11:40 Ondansetron Inj 4 Mg/2 Ml Vial IV PUSH 4 mg Q4H PRN Administration Nausea And Vomiting Pantoprazole Sodium 40 mg 09/27/21 09:00 09/28/21 08:13 Pantoprazole Sodium Iv 40 Mg Vial IV PUSH 40 mg QAM ELGIN Administration Radiology Results: ITS Impressions Abdomen/Pelvis CT 09/27/21 08:07 IMPRESSION: 1. Perforated sigmoid diverticulitis. No drainable abscess. Labs Labs: Laboratory Results - last 24 hr 09/28/21 09/28/21 04:49 04:49 WBC 14.2 H RBC 4.65 Hgb 13.8 L Hct 41.1 L MCV 88.4 MCH 29.7 MCHC 33.6 RDW 13.5 Plt Count 210 MPV 9.6 Immature Gran % (Auto) 0.5 Neut % (Auto) 88.6 H Lymph % (Auto) 4.6 L [place] % (Auto) 6.0 Eos % (Auto) 0.2 Baso % (Auto) 0.1 L Lymph # (Auto) 0.65 L [place] # (Auto) 0.9 H Eos # (Auto) 0.0 Baso # (Auto) 0.0 Abs Immat Gran (auto) 0.07 H Absolute Neuts (auto) 12.6 H Absolute Nucle
--- NOTE | 2021-09-28 13:06 | PM.PNGS ---
Progress Note: A&P Assessment and Plan (1) Diverticulitis of colon with perforation: Code(s): K57.20 - Diverticulitis of large intestine with perforation and abscess without bleeding Status: Acute Assessment and Plan: having more pain today. He was given Dilaudid by the hospitalist. This seemed to work better. I will change his narcotic analgesics to Dilaudid. I will also add gentamicin to his Zosyn antibiotics. We will get stat CT scan to evaluate right lower quadrant pain for possible abscess or other progression of his diverticulitis. (2) Tobacco abuse: Code(s): Z72.0 - Tobacco use Status: Chronic Subjective Subjective Date/Time Seen: 09/28/21 13:06 Patient reports: still having pain ( Hurts more today than yesterday. New pain in right lower quadrant) and afebrile Review of Systems Review of Systems: All systems reviewed & are unremarkable except as noted in HPI and below Constitutional: Constitutional: Reports as per HPI, Denies chills and Denies fever(s) Cardiovascular: Cardiovascular: Denies chest pain and Denies dyspnea Respiratory: Respiratory: Denies cough and Denies dyspnea Gastrointestinal: Gastrointestinal: Reports as per HPI, Reports abdominal pain, Denies heartburn, Denies diarrhea and Denies vomiting Objective Data Vital Signs Vital Signs: Vital Signs - 24 hr 09/27/21 14:00 09/27/21 19:56 09/27/21 20:06 Temperature 37.0 C 36.4 C Pulse Rate 78 76 Respiratory Rate 18 16 Blood Pressure 127/70 126/74 Pulse Oximetry 96 94 Oxygen Delivery Room Air 09/28/21 04:14 Temperature 36.4 C Pulse Rate 70 Respiratory Rate 12 Blood Pressure 123/75 Pulse Oximetry 95 Oxygen Delivery Intake/Output Intake/Output: Intake & Output 09/25/21 09/26/21 09/27/21 09/28/21 23:59 23:59 23:59 23:59 Intake Total 2590 1500 Balance 2590 1500 Meds/Results Medications: Active Medications Generic Name Dose Route Start Last Admin Trade Name Freq PRN Reason Stop Dose Admin Enoxaparin Sodium 40 mg 09/28/21 09:00 09/28/21 08:13 Enoxaparin 40 Mg/0.4 Ml Syringe SUB-Q 40 mg DAILY ELGIN Administration Gentamicin Sulfate 1 each 09/28/21 13:04 Gentamicin Pharmacy To Dose IVPB PRN PRN Kinetics Consult Hydromorphone HCl 0.5 mg 09/28/21 13:01 Hydromorphone Hcl Inj (*Crx) 1 Mg/Ml Syr IV PUSH Q2H PRN Pain Rated 4-6 Hydromorphone HCl 1 mg 09/28/21 13:01 Hydromorphone Hcl Inj (*Crx) 1 Mg/Ml Syr IV PUSH Q2H PRN Pain Rated 7-10 Piperacillin/Tazobactam/Dextrose 3.375 gm in 50 mls @ 100 mls/hr 09/27/21 12:00 09/28/21 12:43 Zosyn 3.375 Gm/D5w 50ml Pm IVPB 100 mls/hr Q6H ELGIN Administration Sodium Chloride 1,000 mls @ 125 mls/hr 09/27/21 06:30 09/28/21 08:14 Normal Saline Iv IV CONT 125 mls/hr .Q8H ELGIN Administration Ibuprofen 800 mg in 200 mls @ 400 mls/hr 09/27/21 18:00 09/28/21 12:43 Caldolor 800 Mg/200 Ml IVPB 400 mls/hr Q6HR ELGIN Administration Morphine Sulfate 2 mg 09/27/21 14:49 Morphine Sulfate (*Crx) 2 Mg/Ml Inj IV PUSH Q2H PRN Pain Rated 4-6 Ondansetron HCl 4 mg 09/27/21 11:11 09/27/21 11:40 Ondansetron Inj 4 Mg/2 Ml Vial IV PUSH 4 mg Q4H PRN Administration Nausea And Vomiting Pantoprazole Sodium 40 mg 09/27/21 09:00 09/28/21 08:13 Pantoprazole Sodium Iv 40 Mg Vial IV PUSH 40 mg QAM ELGIN Administration Radiology Results: ITS Impressions Abdomen/Pelvis CT 09/27/21 08:07 IMPRESSION: 1. Perforated sigmoid diverticulitis. No drainable abscess. Labs Labs: Laboratory Results - last 24 hr 09/28/21 09/28/21 04:49 04:49 WBC 14.2 H RBC 4.65 Hgb 13.8 L Hct 41.1 L MCV 88.4 MCH 29.7 MCHC 33.6 RDW 13.5 Plt Count 210 MPV 9.6 Immature Gran % (Auto) 0.5 Neut % (Auto) 88.6 H Lymph % (Auto) 4.6 L [place] % (Auto) 6.0 Eos % (Auto) 0.2 Baso % (Auto) 0.1 L Lymph # (Auto) 0.65 L Mon
--- NOTE | 2021-09-28 14:41 | PM.PNGS ---
Progress Note: A&P Assessment and Plan (1) Diverticulitis of colon with perforation: Code(s): K57.20 - Diverticulitis of large intestine with perforation and abscess without bleeding Status: Acute Assessment and Plan: I explained to the patient and his that his diverticulitis has gotten worse. I explained the nature of diverticulitis and perforation particularly free perforation. Offered the options of continued medical therapy which will likely result in at least 1 or more abscess is being drained and will still require prolonged treatment. Medical therapy also may fail and surgery would be required only later following failure of medical therapy. I also offered and recommended laparotomy with sigmoidectomy. This may be done with end colostomy or with anastomosis and loop ileostomy. I explained this and the usual recovery time. I explained that it would take a 2nd operation to restore intestinal continuity. After discussion with the patient and his , he wishes to go ahead with surgery today. All questions were answered. We will proceed. (2) Tobacco abuse: Code(s): Z72.0 - Tobacco use Status: Chronic Subjective Subjective Date/Time Seen: 09/28/21 14:41 Patient reports: still having pain Review of Systems Review of Systems: All systems reviewed & are unremarkable except as noted in HPI and below (HPI) Exam Const: General: comfortable, alert and awake Nutritional Appearance: overweight Orientation/consciousness: patient oriented x3 and No confusion GI: Inspection: normal to inspection and non-distended GI Palp: Yes Tenderness to palpation present (GI), Yes Guarding due to palpation present (GI) (Right lower quadrant) and No Palpable mass present Auscultation: absent bowel sounds Objective Data Vital Signs Vital Signs: Vital Signs - 24 hr 09/27/21 19:56 09/27/21 20:06 09/28/21 04:14 Temperature 36.4 C 36.4 C Pulse Rate 76 70 Respiratory Rate 16 12 Blood Pressure 126/74 123/75 Pulse Oximetry 94 95 Oxygen Delivery Room Air 09/28/21 13:48 Temperature 36.4 C Pulse Rate 76 Respiratory Rate 20 Blood Pressure 134/75 Pulse Oximetry 94 Oxygen Delivery Intake/Output Intake/Output: Intake & Output 09/25/21 09/26/21 09/27/21 09/28/21 23:59 23:59 23:59 23:59 Intake Total 2590 1750 Balance 2590 1750 Meds/Results Medications: Active Medications Generic Name Dose Route Start Last Admin Trade Name Freq PRN Reason Stop Dose Admin Enoxaparin Sodium 40 mg 09/28/21 09:00 09/28/21 08:13 Enoxaparin 40 Mg/0.4 Ml Syringe SUB-Q 40 mg DAILY ELGIN Administration Hydromorphone HCl 0.5 mg 09/28/21 13:01 Hydromorphone Hcl Inj (*Crx) 1 Mg/Ml Syr IV PUSH Q2H PRN Pain Rated 4-6 Hydromorphone HCl 1 mg 09/28/21 13:01 Hydromorphone Hcl Inj (*Crx) 1 Mg/Ml Syr IV PUSH Q2H PRN Pain Rated 7-10 Piperacillin/Tazobactam/Dextrose 3.375 gm in 50 mls @ 100 mls/hr 09/27/21 12:00 09/28/21 14:05 Zosyn 3.375 Gm/D5w 50ml Pm IVPB Infused Q6H ELGIN Infusion Sodium Chloride 1,000 mls @ 125 mls/hr 09/27/21 06:30 09/28/21 08:14 Normal Saline Iv IV CONT 125 mls/hr .Q8H ELGIN Administration Ibuprofen 800 mg in 200 mls @ 400 mls/hr 09/27/21 18:00 09/28/21 13:13 Caldolor 800 Mg/200 Ml IVPB Infused Q6HR ELGIN Infusion Gentamicin Sulfate 500 mg/ 112.5 mls @ 100 mls/hr 09/28/21 14:00 Dextrose IVPB 09/28/21 15:07 ONCE ONE Gentamicin Sulfate 500 mg/ 112.5 mls @ 100 mls/hr 09/28/21 13:13 Dextrose IVPB PRN PRN PER LEVELS Ondansetron HCl 4 mg 09/27/21 11:11 09/27/21 11:40 Ondansetron Inj 4 Mg/2 Ml Vial IV PUSH 4 mg Q4H PRN Administration Nausea And Vomiting Pantoprazole Sodium 40 mg 09/27/21 09:00 09/28/21 08:13 Pantoprazole Sodium Iv 40 Mg Vial IV PUSH 40 mg QAM ELGIN Administration Radiology Results: ITS Impressions Abdomen/Pelvis CT 09/28/21 13:54 IMPRESS
--- NOTE | 2021-09-28 14:45 | WPDHPUPDATE1 ---
History and Physical Update Update Date/Time: 09/28/21 14:45 History and Physical has been reviewed, including an updated exam of the patient. There are NO changes in the patient's condition. Risks, benefits, and alternatives have been discussed and questions answered. Patient agrees to proceed with procedure.
[2021-09-28] MEDS: HYDROmorphone HCL INJ (*CRX) 1 MG/ML SYR IV PUSH (15:37)
--- NOTE | 2021-09-28 15:47 | WPDANESEPPF ---
Anes - Initial Pre Proc Eval Procedure: Operation Date: 09/28/21 16:00 Proposed Procedures p Exploratory Laparotomy, Pos Bowel Resec - Tha Ortez MD Date/Time: 09/28/21 15:47 Surgeon: Evelin Luna DO Pre Op Diagnosis: Sigmoid diverticulitis with perforation Patient Data Age: 56 Gender: M Height: 1.91 m Weight: 122 kg Last Vital Signs Temp 36.4 C 09/28/21 13:48 Pulse 76 09/28/21 13:48 Resp 20 09/28/21 13:48 BP 134/75 09/28/21 13:48 Pulse Ox 94 09/28/21 13:48 O2 Del Method Room Air 09/27/21 20:06 Allergies Allergy/AdvReac Type Severity Reaction Status Date / Time No Known Allergies Allergy Verified 09/27/21 05:23 Home Medications Medication Instructions Recorded Confirmed Type No Home Medications 09/13/19 09/27/21 History Laboratory Tests 09/28/21 09/28/21 04:49 04:49 WBC 14.2 K/mm3 H K/mm3 (4.5-10.0) RBC 4.65 M/mm3 M/mm3 (4.6-6.20) Hgb 13.8 g/dL L g/dL (14.0-18.0) Hct 41.1 % L % (42.0-52.0) MCV 88.4 fl fl (80-100) MCH 29.7 pg pg (26-34) MCHC 33.6 g/dl g/dl (32-36) RDW 13.5 % % (11.5-14.5) Plt Count 210 k/mm3 k/mm3 (150-375) MPV 9.6 fl fl (7.4-10.4) Immature Gran % (Auto) 0.5 % % (0-0.5) Neut % (Auto) 88.6 % H % (45.5-73.1) Lymph % (Auto) 4.6 % L % (18.3-44.2) [place] % (Auto) 6.0 % % (2.6-8.5) Eos % (Auto) 0.2 % % (0-4.4) Baso % (Auto) 0.1 % L % (0.2-1.2) Lymph # (Auto) 0.65 K/mm3 L K/mm3 (0.9-3.2) [place]ie # (Auto) 0.9 K/mm3 H K/mm3 (0.1-0.6) Eos # (Auto) 0.0 K/mm3 K/mm3 (0-0.3) Baso # (Auto) 0.0 K/mm3 K/mm3 (0.0-0.1) Abs Immat Gran (auto) 0.07 K/mm3 H K/mm3 (0.00-0.031) Absolute Neuts (auto) 12.6 K/mm3 H K/mm3 (1.3-6.7) Absolute Nucleated RBC 0.0 K/mm3 K/mm3 (0.0-0.012) Nucleated RBC % 0.0 % % (0.0-0.2) Sodium 138 mmol/L mmol/L (137-145) Potassium 4.0 mmol/L mmol/L (3.4-5.0) Chloride 109 mmol/L H mmol/L (98-107) Carbon Dioxide 20 mmol/L L mmol/L (22-30) Anion Gap 9 mmol/L mmol/L (8-16) BUN 20 mg/dL mg/dL (9-20) Creatinine 1.10 mg/dL mg/dL (0.7-1.3) Estim Creat Clear Calc 96 ml/min ml/min Estimated GFR > 60 (59 - ) Glucose 125 mg/dL H mg/dL (65-110) Calcium 8.1 mg/dL L mg/dL (8.4-10.2) Total Bilirubin 1.9 mg/dL H mg/dL (0.2-1.3) AST 13 U/L L U/L (17-59) ALT 16 U/L U/L (6-50) Alkaline Phosphatase 78 U/L U/L (38-126) Total Protein 7.0 g/dL g/dL (6.3-8.2) Albumin 3.4 g/dL L g/dL (3.5-5.1) Patient hx anesthesia problems: none Family hx anesthesia problems: none Results Review: All pre-operative results and documents have been reviewed as part of the pre-operative evaluation. [facility] Past Medical History Medical History (Updated 09/28/21 @ 15:47 by Regino Johnson MD) Diverticulitis Episode of perforated diverticulitis with abscess about 7-8 years ago treated at [facility]. Obesity Surgical History Surgical History History of colonoscopy 7-[address] Cm in [place]. Family History Family History Sibling Leukemia Mother Diabetes mellitus Social History Social History Social History: The patient lives at home with his . 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 Does not have an established PCP - previously was followed by Dr. Hamm. Smoking packs per day: 1 Smoking cigarettes per day: 20.0 Years smoked: 30 Smoking pack-years: 30.00 Smoking status: Current every day smoker Alcohol intake: never Alcohol use details: Occasional alcohol use. Not daily. Substance use: never Gender id
--- NOTE | 2021-09-28 18:51 | W.PM.PROC2 ---
Procedure Note - Detailed Date of Procedure 09/28/21 Pre-op Diagnosis Sigmoid diverticulitis with perforation Post-op Diagnosis Same Procedure Performed Sigmoid colon resection with end descending colostomy (Keerthi procedure) Surgeon Tha Ortez MD Internet Project Manager Janet Weeks MATERIAL PREPARATION WORKER MATERIAL PREPARATION WORKER Anesthesia General Indications Patient is a 56-year-old man who presented with diverticulitis and a small foci of free air near the sigmoid colon. Last night he experienced severe right lower quadrant pain which has persisted. A CT scan done today showed a significant increase and free air and free fluid with a large amount of fluid and air in the right lower quadrant. After discussion, the patient is taken to surgery now for sigmoidectomy with colostomy Findings He had a large patent hole in the sigmoid colon that was still leaking stool material into the abdomen. There was a lot of inflammatory exudate particularly in the right lower quadrant. There was not a lot of fecal material in the abdomen. Just a small amount near the perforation. No distinct abscess was noted. Description of Procedure The patient was taken to surgery and induced into general anesthesia. The abdomen is prepped and draped. Midline lower abdominal incision was made from just above the umbilicus down to nearly the pubis. We dissected through the midline fascia and entered the peritoneal cavity. There was a foul odor and a lot of greenish material that we noted immediately. I broke up a few inflammatory small-bowel adhesions in the both the left lower quadrant and right lower quadrant. I was able to then suction some of the fluid in the pelvis and right lower quadrant. I continued to take down inflammatory adhesions and mobilize literally the entire small bowel. I was then able to expose the sigmoid colon and saw the large free perforation. As I mentioned, there was still smear of stool at the aperture and in the vicinity the perforation. I packed the small bowel out of the way and expose the sigmoid colon. I divided the lateral peritoneal attachments to the sigmoid colon and divided some of the lateral attachments to the descending colon. I found the left ureter and carefully avoided it. I then dissected in the distal descending mesentery in the area where the proximal line of resection would be made. I opened the mesentery and then divided the mesentery in this area of losing the LigaSure. After I skeletonized the distal descending colon, it was divided with the TLC 75 stapler. I then carefully dissected and divided the mesentery to the remaining sigmoid colon. This was quite bloody as there was severe inflammation as 1 might expect. Eventually we dissected and divided the mesentery to the distal sigmoid colon, probably just above the rectum. This area was relatively free of inflammation and would be more easily located at the time of colostomy closure. I divided the mesentery up to this area of upper rectum or distal sigmoid. I then used the contour stapler and divided the distal sigmoid with this. The specimen was then removed and passed off to pathology. I placed a couple of 3-0 Prolene sutures in the suture line of the rectal stump to assist in locating this at the time of colostomy closure. I then checked for bleeding in the areas of dissection. All looked good. The ureter was read checked and looked good. We irrigated the area thoroughly with warm saline at least a L. I then did some additional dissection on the distal descending colon so that it would pass through the abdominal wall for the end colostomy. Some of the mesentery at the staple line was divided. Some of the additional epiploica were removed with the LigaSure. From there, I went to the patient's left side. I excised a agdaagux of skin just off the midline to the left side. I took the subcutaneous with it. I then divided the midline fascia longitudinally. I divided the rectus fibers them rather than divi
[2021-09-28] MEDS: LACTATED RINGERS 1,000 ML 30 ML IV CONT ×2 (18:52)
[2021-09-28] MEDS: fentaNYL CITRATE INJ (*CRX) 100 MCG/2 ML VIAL 25 MCG IV PUSH ×6 (19:09→20:01)
[2021-09-28] MEDS: ONDANSETRON INJ 4 MG/2 ML VIAL IV PUSH (19:18)
--- NOTE | 2021-09-28 20:20 | PC.NURSE ---
Addendum entered by Beto Hurst RN 09/29/21 00:20: Pt returned from surgery by bed at 2020. Report received by Liberty GHOTRA. Family at bedside. Original Note: Pt returned from surgery by bed at
[2021-09-28] MEDS: KCL 20 MEQ/D5/0.9% SOD CHL 1,000 ML 100 ML IV CONT (21:16)
[2021-09-28] MEDS: MORPHINE SULFATE (*CRX) 2 MG/ML INJ (21:45)
[2021-09-28] MEDS: MORPHINE SULFATE PCA (*CRX) 30 MG/30 ML SYR IV CONT (21:47)
[2021-09-28] MEDS: SODIUM CHLORIDE 0.9% IV 500 ML 30 ML (21:59)
--- NOTE | 2021-09-28 22:07 | PC.NURSE ---
WARP TENSION TESTER errors, requiring WARP TENSION TESTER switch out. 2mg pulled from PIXIS for bolus dose while WARP TENSION TESTER programming was initiated. Melanie Peng, Minda Barceans, and Beto Vaughn all assisting with WARP TENSION TESTER setup at time of bolus given.
[2021-09-28] MEDS: FAMOTIDINE 20 MG/2 ML VIAL IV PUSH (22:28)
[2021-09-29] VITALS (17 sets, daily range): BP systolic 128–146; BP diastolic 80–87; PULSE 72–83; RESP 14–20; TEMP 35.9–36.8; O2SAT 92–96
[2021-09-29] MEDS: MORPHINE SULFATE PCA (*CRX) 30 MG/30 ML SYR IV CONT ×3 (01:28→14:58)
[2021-09-29 05:58] LABS: Hematocrit 39.7 % (42.0-52.0); Hemoglobin 13.1 g/dL (14.0-18.0); Mean Corpuscular Hemoglobin 30.1 pg (26-34); Mean Corpuscular Volume 91.3 fl (80-100); Mean Platelet Volume 9.7 fl (7.4-10.4); Platelet Count Result 256 k/mm3 (150-375); Red Blood Count 4.35 M/mm3 (4.6-6.20); Red Cell Distribution Width 13.8 % (11.5-14.5); White Blood Count 14.2 K/mm3 (4.5-10.0)
[2021-09-29 06:12] LABS: Anion Gap 9 mmol/L (8-16); Blood Urea Nitrogen 20 mg/dL (9-20); Carbon Dioxide 23 mmol/L (22-30); Chloride 107 mmol/L (98-107); Estimated CRCL calculation 116 ml/min; Estimated Glomerular Filt Rate > 60; Glucose 174 mg/dL (65-110); Potassium 4.2 mmol/L (3.4-5.0); Sodium 139 mmol/L (137-145)
--- NOTE | 2021-09-29 07:26 | PM.IMPN ---
Progress Note: A&P Assessment and Plan (1) Diverticulitis of colon with perforation: Code(s): K57.20 - Diverticulitis of large intestine with perforation and abscess without bleeding Status: Acute Assessment and Plan: Diverticulitis with recurrent perforation without abscess, general surgery consult pending, 3rd episode in 10 years Continue Zosyn, NPO, IV fluids, pain control with morphine Patient was offered an elective sigmoidectomy in the past and declined, no surgical intervention necessary at this point Update: repeat CT scan ordered, worsening, OR today 09/29: Postop day 1 from sigmoidectomy with colostomy, doing well, appreciate general surgery consultation (2) Tobacco abuse: Code(s): Z72.0 - Tobacco use Status: Chronic Assessment and Plan: Smoking cessation discussed Plan DVT prophylaxis with SCDs GI prophylaxis with PPI Code status full code Subjective Date/time seen: 09/29/21 07:26 Interval history: POD#1 colectomy w/colostomy, doing well. Pain controlled with [employer]ET[employer] SCIENTIST. No overnight events noted. No chest pain or shortness of breath. No nausea, vomiting or diarrhea. No fevers or chills. Review of Systems Review of Systems: 12 point review of systems was assessed and was negative except as noted in the HPI Exam Narrative: General: No acute distress, alert and oriented per baseline HEENT: Atraumatic, normocephalic, mucous membranes moist CV: Regular rate and rhythm, S1, S2 Lungs: Clear to auscultation bilaterally, no rales or crackles noted, no wheezes, good air entry Abdomen: Diffusely tender to palpation, colostomy bag in place Extremities: Normal to inspection Skin: No rashes noted, no lesions or wounds seen Psych: Euthymic, normal affect Objective Data Vital Signs Vital Signs: Vital Signs - 24 hr 09/28/21 13:48 09/28/21 18:59 09/28/21 19:05 Temperature 97.6 F 99.8 F H Pulse Rate 76 95 79 Respiratory Rate 20 16 12 Blood Pressure 134/75 148/90 H 151/89 H Pulse Oximetry 94 94 95 Oxygen Delivery Room Air Simple Face Mask Oxygen Flow Rate 6 09/28/21 19:20 09/28/21 19:35 09/28/21 19:50 Temperature 97.8 F Pulse Rate 78 75 77 Respiratory Rate 12 10 L 16 Blood Pressure 154/94 H 148/96 H 133/94 H Pulse Oximetry 94 92 93 Oxygen Delivery Simple Face Mask Nasal Cannula Nasal Cannula Oxygen Flow Rate 6 2 2 09/28/21 20:16 09/28/21 20:20 09/28/21 20:35 Temperature 97.6 F 97.7 F Pulse Rate 76 79 78 Respiratory Rate 16 16 Blood Pressure 144/84 H 140/85 Pulse Oximetry 93 94 95 Oxygen Delivery Nasal Cannula Oxygen Flow Rate 2 09/28/21 21:47 09/28/21 21:50 09/28/21 22:50 Temperature 97.8 F 97.9 F Pulse Rate 72 72 Respiratory Rate 18 18 14 Blood Pressure 147/80 H 135/79 Pulse Oximetry 96 96 96 Oxygen Delivery Oxygen Flow Rate 09/28/21 23:00 09/29/21 00:08 09/29/21 00:13 Temperature 98.2 F Pulse Rate 74 Respiratory Rate 14 14 14 Blood Pressure 130/85 Pulse Oximetry 95 96 96 Oxygen Delivery Oxygen Flow Rate 09/29/21 01:08 09/28/21 21:00 09/29/21 03:00 Temperature Pulse Rate Respiratory Rate 14 14 Blood Pressure Pulse Oximetry 93 95 92 Oxygen Delivery Nasal Cannula Oxygen Flow Rate 2 09/29/21 06:30 09/29/21 05:00 09/29/21 06:30 Temperature 98.1 F Pulse Rate 78 Respiratory Rate 18 16 18 Blood Pressure 128/80 Pulse Oximetry 93 92 93 Oxygen Delivery Oxygen Flow Rate Intake/Output Intake/Output: Intake & Output 09/26/21 09/27/21 09/28/21 09/29/21 23:59 23:59 23:59 23:59 Intake Total 2590 2150 125 Output Total -70 700 Balance 2590 2220 -575 Meds/Results Medications: Active Medications Generic Name Dose Route Start Last Admin Trade Name Freq PRN Reason Stop Dose Admin Acetaminophen 500 mg 09/28/21 20:17 Acetaminophen 500 Mg Tablet PO Q6H PRN Mild Pain (1-3) or Fever Enoxaparin Sodium 40 mg 09/28/21 09:00 09/28/21
[2021-09-29] MEDS: FAMOTIDINE 20 MG/2 ML VIAL IV PUSH ×2 (08:14→20:14)
[2021-09-29] MEDS: ENOXAPARIN 40 MG/0.4 ML SYRINGE SUB-Q (08:14)
--- NOTE | 2021-09-29 09:51 | WPDANESPN ---
Anes - Prog Note Post-Op Date/Time: 09/29/21 09:51 Cardiovascular status: normal Respiratory status: normal Airway patency: baseline Mental status: baseline Post-Op hydration status: normal Vital Signs: Last Vital Signs Temp 98.1 F 09/29/21 06:30 Pulse 78 09/29/21 06:30 Resp 18 09/29/21 08:11 BP 128/80 09/29/21 06:30 Pulse Ox 93 09/29/21 08:11 O2 Del Method Room Air 09/29/21 08:00 O2 Flow Rate 2 09/28/21 21:00 Pain Score (VAS): 03/20 I/O: Intake & Output 09/28/21 09/29/21 09/29/21 23:59 07:59 15:59 Intake Total 400 125 30 Output Total -70 700 Balance 470 -575 30 Laboratory Tests 09/29/21 05:38 09/29/21 05:38 09/28/21 09/29/21 09/29/21 14:53 05:38 05:38 WBC 14.2 H RBC 4.35 L Hgb 13.1 L Hct 39.7 L MCV 91.3 MCH 30.1 MCHC 33.0 RDW 13.8 Plt Count 256 MPV 9.7 Sodium 139 Potassium 4.2 Chloride 107 Carbon Dioxide 23 Anion Gap 9 BUN 20 Creatinine 0.90 Estim Creat Clear Calc 116 Estimated GFR > 60 Glucose 174 H Calcium 8.0 L Blood Type A Positive Antibody Screen Negative Microbiology 09/27/21 06:33 Blood Blood Culture - Preliminary 09/27/21 06:33 Blood Blood Culture - Preliminary Patient Feedback: Patient satisfied with anesthetic care.
[2021-09-29] MEDS: KCL 20 MEQ/D5/0.9% SOD CHL 1,000 ML 100 ML IV CONT ×2 (10:00→20:13)
--- NOTE | 2021-09-29 13:18 | PM.PNGS ---
Progress Note: A&P Assessment and Plan (1) Diverticulitis of colon with perforation: Code(s): K57.20 - Diverticulitis of large intestine with perforation and abscess without bleeding Status: Acute Assessment and Plan: Postop day 1 and doing well. Pain being controlled with Morphine MEAT MANAGER. Continue IV Zosyn. Remove Wolf catheter today. Consult wound care nurses for ostomy teaching. Continue clear liquids. Encouraged getting up to chair. Repeat labs tomorrow. (2) Tobacco abuse: Code(s): Z72.0 - Tobacco use Status: Chronic Plan I have discussed the patient's case and plan of care with Dr. Ortez. Subjective Subjective Date/Time Seen: 09/29/21 09:18 Post Op day: 1 (Keerthi's procedure) Patient reports: still having pain, tolerating liquids well and afebrile Interval history: This is a 56 yo M who presented with perforated sigmoid diverticulitis and underwent a Keerthi's procedure by Dr. Ortez yesterday. Chart reviewed. Patient seen and examined this morning. His main complaint this morning is incisional pain that does seem to be controlled with the Morphine MEAT MANAGER. He denies any nausea or bloating. Tolerating clear liquids, but taking this slow. He got up to the chair last night and would like to try again today. No other complaints at this time. Review of Systems Review of Systems: All systems reviewed & are unremarkable except as noted in HPI and below Constitutional: Constitutional: Reports no additional constitutional complaints, Denies headache(s) and Denies weakness Cardiovascular: Cardiovascular: Reports no additional cardiovascular complaints and Denies chest pain Respiratory: Respiratory: Reports no additional respiratory complaints, Denies cough and Denies dyspnea Gastrointestinal: Gastrointestinal: Reports as per HPI and Reports no additional gastrointestinal complaints Exam Const: General: no acute distress and alert Orientation/consciousness: patient oriented x3 GI: Inspection: incision (dressing dry and intact) and other (mildly distended) GI Palp: Yes Soft to palpation and Yes Tenderness to palpation present (GI) Auscultation: normal bowel sounds Other: stoma pink and moist with no gas in bag, scant dark bloody liquid Urinary Catheter: Urinary Catheter: patent and draining and urine dark Neuro: General: moves all extremities and no focal motor deficits Extrem: General: no calf tenderness and no edema Psych: Mental Status: mental status grossly normal Insight: Good insight present (Psych) Objective Data Vital Signs Vital Signs: Vital Signs - 24 hr 09/28/21 13:48 09/28/21 18:59 09/28/21 19:05 Temperature 97.6 F 99.8 F H Pulse Rate 76 95 79 Respiratory Rate 20 16 12 Blood Pressure 134/75 148/90 H 151/89 H Pulse Oximetry 94 94 95 Oxygen Delivery Room Air Simple Face Mask Oxygen Flow Rate 6 09/28/21 19:20 09/28/21 19:35 09/28/21 19:50 Temperature 97.8 F Pulse Rate 78 75 77 Respiratory Rate 12 10 L 16 Blood Pressure 154/94 H 148/96 H 133/94 H Pulse Oximetry 94 92 93 Oxygen Delivery Simple Face Mask Nasal Cannula Nasal Cannula Oxygen Flow Rate 6 2 2 09/28/21 20:16 09/28/21 20:20 09/28/21 20:35 Temperature 97.6 F 97.7 F Pulse Rate 76 79 78 Respiratory Rate 16 16 Blood Pressure 144/84 H 140/85 Pulse Oximetry 93 94 95 Oxygen Delivery Nasal Cannula Oxygen Flow Rate 2 09/28/21 21:47 09/28/21 21:50 09/28/21 22:50 Temperature 97.8 F 97.9 F Pulse Rate 72 72 Respiratory Rate 18 18 14 Blood Pressure 147/80 H 135/79 Pulse Oximetry 96 96 96 Oxygen Delivery Oxygen Flow Rate 09/28/21 23:00 09/29/21 00:08 09/29/21 00:13 Temperature 98.2 F Pulse Rate 74 Respiratory Rate 14 14 14 Blood Pressure 130/85 Pulse Oximetry 95 96 96 Oxygen Delivery Oxygen Flow Rate 09/29/21 01:08 09/28/21 21:00 09/29/21 03:00 Temperature Pulse Rate Respiratory Rate 14 14 Blood Pressure Pulse Oximetry 93 95 92 Oxygen De
[2021-09-30] VITALS (10 sets, daily range): BP systolic 128–149; BP diastolic 77–90; PULSE 67–86; RESP 16–20; TEMP 36.2–36.8; O2SAT 93–97
[2021-09-30 06:08] LABS: Hematocrit 36.1 % (42.0-52.0); Hemoglobin 12.2 g/dL (14.0-18.0); Mean Corpuscular HGB Conc 33.8 g/dl (32-36); Mean Corpuscular Hemoglobin 29.8 pg (26-34); Mean Corpuscular Volume 88.3 fl (80-100); Mean Platelet Volume 10.2 fl (7.4-10.4); Platelet Count Result 251 k/mm3 (150-375); Red Blood Count 4.09 M/mm3 (4.6-6.20); White Blood Count 11.2 K/mm3 (4.5-10.0)
[2021-09-30 06:30] LABS: Anion Gap 7 mmol/L (8-16); Blood Urea Nitrogen 19 mg/dL (9-20); Carbon Dioxide 25 mmol/L (22-30); Chloride 103 mmol/L (98-107); Estimated CRCL calculation 105 ml/min; Estimated Glomerular Filt Rate > 60; Glucose 129 mg/dL (65-110); Potassium 3.6 mmol/L (3.4-5.0); Sodium 135 mmol/L (137-145)
[2021-09-30] MEDS: KCL 20 MEQ/D5/0.9% SOD CHL 1,000 ML 100 ML IV CONT (06:44)
[2021-09-30] MEDS: MORPHINE SULFATE PCA (*CRX) 30 MG/30 ML SYR IV CONT ×3 (06:44→23:14)
[2021-09-30] MEDS: ENOXAPARIN 40 MG/0.4 ML SYRINGE SUB-Q (08:15)
[2021-09-30] MEDS: FAMOTIDINE 20 MG/2 ML VIAL IV PUSH ×2 (08:17→23:06)
--- NOTE | 2021-09-30 09:08 | PM.IMPN ---
Progress Note: A&P Assessment and Plan (1) Diverticulitis of colon with perforation: Code(s): K57.20 - Diverticulitis of large intestine with perforation and abscess without bleeding Status: Acute Assessment and Plan: Diverticulitis with recurrent perforation without abscess, general surgery consult pending, 3rd episode in 10 years Continue Zosyn, NPO, IV fluids, pain control with morphine Patient was offered an elective sigmoidectomy in the past and declined, no surgical intervention necessary at this point Update: repeat CT scan ordered, worsening, OR today 09/29: Postop day 1 from sigmoidectomy with colostomy, doing well, appreciate general surgery consultation 09/30: POD 2, day 4 of zosyn, ADAT, colostomy teaching, appreciate surgical consultation (2) Tobacco abuse: Code(s): Z72.0 - Tobacco use Status: Chronic Assessment and Plan: Smoking cessation discussed Plan DVT prophylaxis with lovenox GI prophylaxis with PPI Code status full code Subjective Date/time seen: 09/30/21 09:08 Interval history: POD#2 colectomy w/colostomy, doing well. Pain controlled. No overnight events noted. No chest pain or shortness of breath. No nausea, vomiting or diarrhea. No fevers or chills. Review of Systems Review of Systems: 12 point review of systems was assessed and was negative except as noted in the HPI Exam Narrative: General: No acute distress, alert and oriented per baseline HEENT: Atraumatic, normocephalic, mucous membranes moist CV: Regular rate and rhythm, S1, S2 Lungs: Clear to auscultation bilaterally, no rales or crackles noted, no wheezes, good air entry Abdomen: Diffusely tender to palpation, colostomy bag in place Extremities: Normal to inspection Skin: No rashes noted, no lesions or wounds seen Psych: Euthymic, normal affect Objective Data Vital Signs Vital Signs: Vital Signs - 24 hr 09/29/21 10:03 09/29/21 10:02 09/29/21 11:30 Temperature 97.9 F 98.3 F Pulse Rate 79 72 Respiratory Rate 20 18 16 Blood Pressure 128/83 142/87 H Pulse Oximetry 94 94 94 Oxygen Delivery 09/29/21 12:07 09/29/21 14:58 09/29/21 16:00 Temperature 98.3 F Pulse Rate 83 Respiratory Rate 16 20 16 Blood Pressure 137/84 Pulse Oximetry 94 93 96 Oxygen Delivery 09/29/21 17:00 09/29/21 20:51 09/29/21 20:00 Temperature 96.7 F L Pulse Rate 77 Respiratory Rate 20 18 Blood Pressure 146/82 H Pulse Oximetry 95 94 94 Oxygen Delivery Room Air 09/30/21 05:09 09/30/21 06:44 Temperature 97.3 F L Pulse Rate 80 Respiratory Rate 18 18 Blood Pressure 129/77 Pulse Oximetry 93 95 Oxygen Delivery Intake/Output Intake/Output: Intake & Output 09/27/21 09/28/21 09/29/21 09/30/21 23:59 23:59 23:59 23:59 Intake Total 2590 2150 281 1470 Output Total -70 800 Balance 2590 0 2014 1469 Meds/Results Medications: Active Medications Generic Name Dose Route Start Last Admin Trade Name Freq PRN Reason Stop Dose Admin Acetaminophen 500 mg 09/28/21 20:17 Acetaminophen 500 Mg Tablet PO Q6H PRN Mild Pain (1-3) or Fever Enoxaparin Sodium 40 mg 09/28/21 09:00 09/30/21 08:15 Enoxaparin 40 Mg/0.4 Ml Syringe SUB-Q 40 mg DAILY ELGIN Administration Famotidine 20 mg 09/28/21 21:00 09/30/21 08:17 Famotidine 20 Mg/2 Ml Vial IV PUSH 20 mg Q12HR ELGIN Administration Morphine Sulfate 30 mg in 30 mls @ 1 mls/hr 09/28/21 20:17 09/30/21 06:44 Morphine Sulfate [employer] IV CONT 1 mg/hr PRN PRN 1 mls/hr CORK WIRER Management Administration Protocol 1 MG/HR Potassium Chloride/Dextrose/Sod Cl 1,000 mls @ 100 mls/hr 09/28/21 20:17 09/30/21 06:44 Kcl 20 Meq/D5/0.9% Sod Chl IV CONT 100 mls/hr .Q10H ELGIN Administration Piperacillin/Tazobactam/Dextrose 3.375 gm in 50 mls @ 100 mls/hr 09/28/21 22:00 09/30/21 04:00 Zosyn 3.375 Gm/D5w 50ml Pm IVPB Infused Q6H ELGIN Infusion Naloxone
--- NOTE | 2021-09-30 10:45 | PM.PNGS ---
Progress Note: A&P Assessment and Plan (1) Diverticulitis of colon with perforation: Code(s): K57.20 - Diverticulitis of large intestine with perforation and abscess without bleeding Status: Acute Assessment and Plan: Postop day 2 and he is slowly improving. Pain better controlled today. May be able to D/C morphine TAILER IN tomorrow. Continue IV Zosyn. Ostomy starting to show signs of functioning with increased amount of gas this morning. Continue clear liquids. Encourage to continue to increase activity and try walking the halls today. Repeat labs tomorrow. Pathology pending. (2) Tobacco abuse: Code(s): Z72.0 - Tobacco use Status: Chronic Plan I have discussed the patient's case and plan of care with Dr. Bauman. Additional Plan The patient is drinking plenty of fluids and has already had almost a L and fluids early this morning. He reports good urine output and voiding fairly frequently. Will reduce IV fluid rate. Subjective Subjective Date/Time Seen: 09/30/21 09:45 Post Op day: 2 (Keerthi's procedure) Patient reports: still having pain, tolerating liquids well, voiding w/o difficulty (Status post Wolf removal yesterday), flatus and afebrile Interval history: Patient seen and examined this morning. He reports not sleeping well last night due to the discomfort of the bed. He is still feeling very sore. He feels his abdominal pain is about the same as yesterday. In review of the history on his TAILER IN, he has significantly decreased how much morphine he has required overnight compared to yesterday. Tolerating clear liquids. He reports noticing gas in his ostomy bag multiple times this morning and has burped his back about 4 times so far today. He was able to get up to the chair and had walked in room yesterday. Review of Systems Review of Systems: All systems reviewed & are unremarkable except as noted in HPI and below Exam Const: General: no acute distress and awake Orientation/consciousness: patient oriented x3 Resp: Effort & Inspection: normal respiratory effort Auscultation: clear to auscultation bilaterally Cardio: Rate: regular rate Rhythm: regular rhythm GI: Inspection: incision (mod serosang drainage, dressing changed, no erythema and omar intact) and other (mildly distended) GI Palp: Yes Soft to palpation, Yes Tenderness to palpation present (GI) and No Guarding due to palpation present (GI) Auscultation: normal bowel sounds Other: stoma pink and moist with gas in bag, scant dark bloody liquid. I did hear audible gas passing through stoma during my assessment Extrem: General: no calf tenderness and no edema Psych: Mental Status: mental status grossly normal Insight: Good insight present (Psych) Objective Data Vital Signs Vital Signs: Vital Signs - 24 hr 09/29/21 11:30 09/29/21 12:07 09/29/21 14:58 Temperature 98.3 F Pulse Rate 72 Respiratory Rate 16 16 20 Blood Pressure 142/87 H Pulse Oximetry 94 94 93 Oxygen Delivery 09/29/21 16:00 09/29/21 17:00 09/29/21 20:51 Temperature 98.3 F 96.7 F L Pulse Rate 83 77 Respiratory Rate 16 20 18 Blood Pressure 137/84 146/82 H Pulse Oximetry 96 95 94 Oxygen Delivery 09/29/21 20:00 09/30/21 05:09 09/30/21 06:44 Temperature 97.3 F L Pulse Rate 80 Respiratory Rate 18 18 Blood Pressure 129/77 Pulse Oximetry 94 93 95 Oxygen Delivery Room Air 09/30/21 10:15 Temperature 97.7 F Pulse Rate 67 Respiratory Rate 18 Blood Pressure 149/83 H Pulse Oximetry 96 Oxygen Delivery Intake/Output Intake/Output: Intake & Output 09/27/21 09/28/21 09/29/21 09/30/21 23:59 23:59 23:59 23:59 Intake Total 2590 2149 2814 2089 Output Total -70 800 Balance 0 2219 2014 2089 Meds/Results Medications: Active Medications Generic Name Dose Route Start Last Admin Trade Name Freq PRN Reason Stop Dose Admin Acetaminophen 500 mg 09/28/21 20:17 Acetaminophen 500 Mg Tablet PO
[2021-09-30] MEDS: KCL 20 MEQ/D5/0.9% SOD CHL 1,000 ML 50 ML IV CONT (18:02)
[2021-10-01] VITALS (9 sets, daily range): BP systolic 128–158; BP diastolic 78–86; PULSE 67–79; RESP 11–22; TEMP 36.1–36.9; O2SAT 94–97
[2021-10-01 05:57] LABS: Hematocrit 37.4 % (42.0-52.0); Hemoglobin 12.4 g/dL (14.0-18.0); Mean Corpuscular HGB Conc 33.2 g/dl (32-36); Mean Corpuscular Hemoglobin 29.7 pg (26-34); Mean Corpuscular Volume 89.5 fl (80-100); Mean Platelet Volume 9.8 fl (7.4-10.4); Platelet Count Result 263 k/mm3 (150-375); Red Blood Count 4.18 M/mm3 (4.6-6.20); White Blood Count 10.4 K/mm3 (4.5-10.0)
[2021-10-01 06:14] LABS: Anion Gap 6 mmol/L (8-16); Blood Urea Nitrogen 15 mg/dL (9-20); Carbon Dioxide 25 mmol/L (22-30); Chloride 101 mmol/L (98-107); Estimated CRCL calculation 116 ml/min; Estimated Glomerular Filt Rate > 60; Glucose 122 mg/dL (65-110); Potassium 3.6 mmol/L (3.4-5.0); Sodium 132 mmol/L (137-145)
[2021-10-01] MEDS: MORPHINE SULFATE PCA (*CRX) 30 MG/30 ML SYR IV CONT (08:37)
[2021-10-01] MEDS: FAMOTIDINE 20 MG/2 ML VIAL IV PUSH ×2 (09:55→20:49)
[2021-10-01] MEDS: ENOXAPARIN 40 MG/0.4 ML SYRINGE SUB-Q (09:55)
--- NOTE | 2021-10-01 11:39 | PM.IMPN ---
Progress Note: A&P Assessment and Plan (1) Diverticulitis of colon with perforation: Code(s): K57.20 - Diverticulitis of large intestine with perforation and abscess without bleeding Status: Acute Assessment and Plan: -Diverticulitis with recurrent perforation without abscess, general surgery consult pending, 3rd episode in 10 years -s/p sigmoidectomy with ostomy placement 09/28 -patient mildly tender, can likely come off MANAGER RADIATION and switched to oral and/or IV narcotics if ok by surgery. Patient is frustrated with pump -can advance to full liquid diet if cleared by surgery. mIVF (2) Tobacco abuse: Code(s): Z72.0 - Tobacco use Status: Chronic Assessment and Plan: Smoking cessation discussed Plan DVT prophylaxis with lovenox GI prophylaxis with PPI Code status full code Subjective Date/time seen: 10/01/21 11:39 Chart reviewed, patient examined. Patient frustrated that he is hooked up to a MANAGER RADIATION pump with nasal cannula. Reports he walked around the halls last night and did well. Tolerating clear liquid diet, notes gas and some liquid stool in ostomy bag. Patient reports tenderness to abdomen, however not very severe. Review of Systems Review of Systems: Ten point ROS reviewed, negative unless otherwise specified per subjective Exam Const: General: no acute distress and awake Orientation/consciousness: patient oriented x3 Resp: Effort & Inspection: normal respiratory effort Auscultation: clear to auscultation bilaterally Cardio: Rate: regular rate Rhythm: regular rhythm GI: Inspection: incision (mod serosang drainage, dressing changed, no erythema and omar intact) and other (mildly distended) GI Palp: Yes Soft to palpation, Yes Tenderness to palpation present (GI) and No Guarding due to palpation present (GI) Auscultation: normal bowel sounds Other: stoma pink and moist with gas in bag, scant dark bloody liquid. Extrem: General: no calf tenderness and no edema Psych: Mental Status: mental status grossly normal Insight: Good insight present (Psych) Objective Data Vital Signs Vital Signs: Vital Signs - 24 hr 09/30/21 14:00 09/30/21 15:41 09/30/21 18:00 Temperature 98.0 F 98.2 F Pulse Rate 86 71 Respiratory Rate 18 18 18 Blood Pressure 144/90 H 128/81 Pulse Oximetry 94 95 95 Oxygen Delivery 09/30/21 19:18 09/30/21 20:00 09/30/21 23:14 Temperature 97.1 F L Pulse Rate 77 77 Respiratory Rate 16 16 16 Blood Pressure 130/81 Pulse Oximetry 97 97 96 Oxygen Delivery Room Air 09/30/21 23:24 10/01/21 04:17 10/01/21 08:37 Temperature 97.4 F L 97.4 F L Pulse Rate 73 72 Respiratory Rate 20 16 22 H Blood Pressure 148/85 H 142/83 H Pulse Oximetry 95 96 97 Oxygen Delivery 10/01/21 10:16 10/01/21 10:00 10/01/21 08:00 Temperature 97.1 F L Pulse Rate 73 78 Respiratory Rate 11 L 18 Blood Pressure 151/86 H Pulse Oximetry 94 96 Oxygen Delivery Room Air Room Air Intake/Output Intake/Output: Intake & Output 09/28/21 09/29/21 09/30/21 10/01/21 23:59 23:59 23:59 23:59 Intake Total 2150 2815 3420 430 Output Total -70 800 Balance 2220 2015 3420 430 Meds/Results Medications: Active Medications Generic Name Dose Route Start Last Admin Trade Name Freq PRN Reason Stop Dose Admin Acetaminophen 500 mg 09/28/21 20:17 Acetaminophen 500 Mg Tablet PO Q6H PRN Mild Pain (1-3) or Fever Enoxaparin Sodium 40 mg 09/28/21 09:00 10/01/21 09:55 Enoxaparin 40 Mg/0.4 Ml Syringe SUB-Q 40 mg DAILY ELGIN Administration Famotidine 20 mg 09/28/21 21:00 10/01/21 09:55 Famotidine 20 Mg/2 Ml Vial IV PUSH 20 mg Q12HR ELGIN Administration Morphine Sulfate 30 mg in 30 mls @ 1 mls/hr 09/28/21 20:17 10/01/21 08:37 Morphine Sulfate Visually Impaired Teacher IV CONT 1 mg/hr PRN PRN 1 mls/hr MANAGER RADIATION Management Administration Protocol 1 MG/HR Potassium Chloride/Dextrose/Sod Cl 1,000 mls @ 50 mls/hr 0
[2021-10-01] MEDS: MORPHINE SULFATE (*CRX) 2 MG/ML INJ IV PUSH ×3 (13:44→22:46)
--- NOTE | 2021-10-01 14:01 | PM.PNGS ---
Progress Note: A&P Assessment and Plan (1) Diverticulitis of colon with perforation: Code(s): K57.20 - Diverticulitis of large intestine with perforation and abscess without bleeding Status: Acute Assessment and Plan: Continues to improve. WBC trending down. Pain control is improving. Will DC TOOL TENDER pump and switch to p.r.n. analgesics. Advanced to a full liquid diet. Continue IV Zosyn. Encouraged continuing to increase activity. Pathology noted this afternoon, but was pending when rounding this morning, will discuss with patient tomorrow. (2) Tobacco abuse: Code(s): Z72.0 - Tobacco use Status: Chronic Plan I have discussed the patient's case and plan of care with Dr. Bauman. Additional Plan The patient is drinking plenty of fluids and has already had almost a L and fluids early this morning. He reports good urine output and voiding fairly frequently. Will reduce IV fluid rate. Subjective Subjective Date/Time Seen: 10/01/21 11:01 Post Op day: 3 (Keerthi's procedure) Patient reports: feels better, pain is less, tolerating liquids well, flatus and afebrile Interval history: Patient seen and examined. He reports his pain has continued to improve overnight and this morning. His use of the TOOL TENDER has decreased some. He has been walking the halls and tolerating this well. Reports still having a good amount of gas passing through the ostomy. No other complaints at this time. Review of Systems Review of Systems: All systems reviewed & are unremarkable except as noted in HPI and below Exam Const: General: comfortable, no acute distress and awake Orientation/consciousness: patient oriented x3 Resp: Effort & Inspection: normal respiratory effort Auscultation: clear to auscultation bilaterally Cardio: Rate: regular rate Rhythm: regular rhythm GI: Inspection: non-distended and incision (mod serosang drainage, dressing changed, slightly pink near umbilicus) GI Palp: Yes Soft to palpation, Yes Tenderness to palpation present (GI) (less tender, improving) and No Guarding due to palpation present (GI) Auscultation: normal bowel sounds Other: stoma pink and moist with gas in bag, scant dark bloody liquid. I did hear audible gas passing through stoma during my assessment Neuro: General: moves all extremities and no focal motor deficits Extrem: General: no calf tenderness and no edema Psych: Mental Status: mental status grossly normal Insight: Good insight present (Psych) Objective Data Vital Signs Vital Signs: Vital Signs - 24 hr 09/30/21 15:41 09/30/21 18:00 09/30/21 19:18 Temperature 98.2 F 97.1 F L Pulse Rate 71 77 Respiratory Rate 18 18 16 Blood Pressure 128/81 130/81 Pulse Oximetry 95 95 97 Oxygen Delivery 09/30/21 20:00 09/30/21 23:14 09/30/21 23:24 Temperature 97.4 F L Pulse Rate 77 73 Respiratory Rate 16 16 20 Blood Pressure 148/85 H Pulse Oximetry 97 96 95 Oxygen Delivery Room Air 10/01/21 04:17 10/01/21 08:37 10/01/21 10:16 Temperature 97.4 F L Pulse Rate 72 73 Respiratory Rate 16 22 H 11 L Blood Pressure 142/83 H Pulse Oximetry 96 97 94 Oxygen Delivery Room Air 10/01/21 10:00 10/01/21 08:00 Temperature 97.1 F L Pulse Rate 78 Respiratory Rate 18 Blood Pressure 151/86 H Pulse Oximetry 96 Oxygen Delivery Room Air Intake/Output Intake/Output: Intake & Output 09/28/21 09/29/21 09/30/21 10/01/21 23:59 23:59 23:59 23:59 Intake Total 2150 2815 3420 430 Output Total -70 800 Balance 2220 2015 3420 430 Meds/Results Medications: Active Medications Generic Name Dose Route Start Last Admin Trade Name Freq PRN Reason Stop Dose Admin Acetaminophen 650 mg 10/01/21 14:00 Acetaminophen 325 Mg Tablet PO Q6H PRN Mild Pain (1-3) or Fever Hydrocodone Bitart/Acetaminophen 1 tab 10/01/21 14:00 Hydrocodone/Acetaminophen (*Crx) 5-325 Mg Tablet PO Q4H PRN Pain Rated 4-6 Hydrocodone Bit
[2021-10-01] MEDS: KCL 20 MEQ/D5/0.9% SOD CHL 1,000 ML 50 ML IV CONT (16:34)
[2021-10-01] MEDS: HYDROcodone/acetaminophen (*CRX) 10-325 MG TABLET 1 TAB PO ×2 (16:35→21:30)
[2021-10-01] MEDS: ONDANSETRON INJ 4 MG/2 ML VIAL IV PUSH (21:34)
[2021-10-02] MEDS: MORPHINE SULFATE (*CRX) 2 MG/ML INJ IV PUSH ×3 (00:45→15:32)
[2021-10-02] MEDS: ONDANSETRON INJ 4 MG/2 ML VIAL IV PUSH (02:39)
[2021-10-02] MEDS: HYDROcodone/acetaminophen (*CRX) 10-325 MG TABLET 1 TAB PO ×3 (02:42→18:41)
[2021-10-02 03:34] VITALS: BP 132/74; PULSE 63; RESP 17; TEMP 36.6; O2SAT 96
[2021-10-02 08:19] LABS: Hemoglobin 13.1 g/dL (14.0-18.0); Mean Corpuscular HGB Conc 33.6 g/dl (32-36); Mean Corpuscular Hemoglobin 30.1 pg (26-34); Mean Corpuscular Volume 89.7 fl (80-100); Mean Platelet Volume 9.7 fl (7.4-10.4); Platelet Count Result 280 k/mm3 (150-375); Red Blood Count 4.35 M/mm3 (4.6-6.20); Red Cell Distribution Width 13.8 % (11.5-14.5); White Blood Count 10.8 K/mm3 (4.5-10.0)
[2021-10-02 08:29] LABS: Anion Gap 7 mmol/L (8-16); Blood Urea Nitrogen 12 mg/dL (9-20); Carbon Dioxide 27 mmol/L (22-30); Chloride 101 mmol/L (98-107); Estimated CRCL calculation 116 ml/min; Estimated Glomerular Filt Rate > 60; Glucose 123 mg/dL (65-110); Potassium 3.8 mmol/L (3.4-5.0); Sodium 135 mmol/L (137-145)
[2021-10-02] MEDS: ENOXAPARIN 40 MG/0.4 ML SYRINGE SUB-Q (09:46)
[2021-10-02] MEDS: FAMOTIDINE 20 MG/2 ML VIAL IV PUSH ×2 (09:46→20:19)
[2021-10-02 09:55] VITALS: BP 139/89; PULSE 69; RESP 16; TEMP 36.7; O2SAT 95
--- NOTE | 2021-10-02 10:00 | PM.IMPN ---
Progress Note: A&P Assessment and Plan (1) Diverticulitis of colon with perforation: Code(s): K57.20 - Diverticulitis of large intestine with perforation and abscess without bleeding Status: Acute Assessment and Plan: -Diverticulitis with recurrent perforation without abscess, general surgery consult pending, 3rd episode in 10 years -s/p sigmoidectomy with ostomy placement 09/28 -patient with increased amount of tenderness off of DIGITAL FORENS[employer] INVESTIGATOR pump. Continue current pain regimen with norco and morphine prn -increased redness with clear drainage noted at incision site. MRSA swab ordered. Continue zosyn for now (2) Tobacco abuse: Code(s): Z72.0 - Tobacco use Status: Chronic Assessment and Plan: Smoking cessation discussed Plan DVT prophylaxis with lovenox GI prophylaxis with PPI Code status full code Subjective Date/time seen: 10/02/21 10:00 Chart reviewed, patient examined. Patient reports increased abdominal pain today. Has been able to eat more food, passing gas but no stool [place] bag noted to have dark liquid output, unchanged from yesterday. RN report they have not had to change the ostomy bag. Review of Systems Review of Systems: All systems reviewed & are unremarkable except as noted in HPI and below Exam Const: General: comfortable, no acute distress and awake Orientation/consciousness: patient oriented x3 Resp: Effort & Inspection: normal respiratory effort Auscultation: clear to auscultation bilaterally Cardio: Rate: regular rate Rhythm: regular rhythm GI: Inspection: non-distended and incision (mod serosang drainage, dressing changed, slightly pink near umbilicus) GI Palp: Yes Soft to palpation, Yes Tenderness to palpation present (GI) (less tender, improving) and No Guarding due to palpation present (GI) Auscultation: abnormal bowel sounds Other: stoma pink and moist with gas in bag, scant dark bloody liquid. Hypoactive BS. Redness noted at incision site with clear drainage. Neuro: General: moves all extremities and no focal motor deficits Extrem: General: no calf tenderness and no edema Psych: Mental Status: mental status grossly normal Insight: Good insight present (Psych) Objective Data Vital Signs Vital Signs: Vital Signs - 24 hr 10/01/21 10:16 10/01/21 14:00 10/01/21 18:00 Temperature 97.0 F L 97.2 F L Pulse Rate 73 78 76 Respiratory Rate 11 L 16 16 Blood Pressure 131/83 128/80 Pulse Oximetry 94 97 96 Oxygen Delivery Room Air 10/01/21 19:14 10/01/21 20:00 10/01/21 23:06 Temperature 97.2 F L 98.5 F Pulse Rate 79 79 67 Respiratory Rate 17 17 20 Blood Pressure 130/78 158/80 H Pulse Oximetry 97 97 94 Oxygen Delivery Room Air 10/02/21 03:34 Temperature 97.9 F Pulse Rate 63 Respiratory Rate 17 Blood Pressure 132/74 Pulse Oximetry 96 Oxygen Delivery Intake/Output Intake/Output: Intake & Output 09/29/21 09/30/21 10/01/21 10/02/21 23:59 23:59 23:59 23:59 Intake Total 281 3420 2410 250 Output Total 800 Balance 2014 3420 2410 250 Meds/Results Medications: Active Medications Generic Name Dose Route Start Last Admin Trade Name Freq PRN Reason Stop Dose Admin Acetaminophen 650 mg 10/01/21 14:00 Acetaminophen 325 Mg Tablet PO Q6H PRN Mild Pain (1-3) or Fever Hydrocodone Bitart/Acetaminophen 1 tab 10/01/21 14:00 Hydrocodone/Acetaminophen (*Crx) 5-325 Mg Tablet PO Q4H PRN Pain Rated 4-6 Hydrocodone Bitart/Acetaminophen 1 tab 10/01/21 14:00 10/02/21 09:44 Hydrocodone/Acetaminophen (*Crx) 10-325 Mg Tablet PO 1 tab Q4H PRN Administration Pain Rated 7-10 Enoxaparin Sodium 40 mg 09/28/21 09:00 10/02/21 09:46 Enoxaparin 40 Mg/0.4 Ml Syringe SUB-Q 40 mg DAILY ELGIN Administration Famotidine 20 mg 09/28/21 21:00 10/02/21 09:46 Famotidine 20 Mg/2 Ml Vial IV PUSH 20 mg Q12HR ELGIN Administration Potassium Chloride/Dextrose/Sod Cl 1,000
[2021-10-02] MEDS: HYDROcodone/acetaminophen (*CRX) 5-325 MG TABLET 1 TAB PO ×3 (12:16→22:19)
--- NOTE | 2021-10-02 13:46 | PM.PNGS ---
Progress Note: A&P Assessment and Plan (1) Diverticulitis of colon with perforation: Code(s): K57.20 - Diverticulitis of large intestine with perforation and abscess without bleeding Status: Acute Assessment and Plan: Slowly improving. Abdominal pain continues to improve daily. Ostomy still with gas, but no stool output. We will give a dose of milk of magnesia today. May need to consider irrigating the ostomy tomorrow if still no output. We will start packing the draining opening in the midline incision with quarter-inch iodoform daily. Continue IV Zosyn. Will keep on full liquids today. Pathology discussed in detail. Encouraged to continue increasing activity daily. (2) Tobacco abuse: Code(s): Z72.0 - Tobacco use Status: Chronic Plan I have discussed the patient's case and plan of care with Dr. Bauman. Subjective Subjective Date/Time Seen: 10/02/21 13:46 Post Op day: 4 (Keerthi's procedure) Patient reports: no new complaints, pain is less, tolerating liquids well, voiding w/o difficulty and afebrile Interval history: Patient seen and examined. Continues to slowly improve daily. Abdominal pain is again slightly better than yesterday. His pain is controlled mostly with the [place], but has required a few doses of IV morphine for breakthrough pain. Tolerating full liquids and drinking plenty of fluids. He walked the halls 3 times yesterday and twice already today. Still having flatus from the ostomy, but no stool output. No other complaints at this time. Still not sleeping well, but reportedly due to the discomfort of his bed. Review of Systems Review of Systems: All systems reviewed & are unremarkable except as noted in HPI and below Exam Const: General: comfortable, no acute distress and awake Orientation/consciousness: patient oriented x3 Resp: Effort & Inspection: normal respiratory effort Auscultation: clear to auscultation bilaterally Cardio: Rate: regular rate Rhythm: regular rhythm GI: Inspection: non-distended GI Palp: Yes Soft to palpation, Yes Tenderness to palpation present (GI) (continues to be less tender daily, now primarily tender near incision) and No Guarding due to palpation present (GI) Auscultation: normal bowel sounds Other: stoma pink and moist with gas in bag, scant dark bloody liquid. Removed bag to evaluate ostomy. Stoma edges intact to skin with sutures in place. I used my digit, pinky, to gently probe into the stoma, there was slight tightness around my finger likely at the level of the fascia but this was widely patent past this. Slight mucous-like drainage on my digit when removed. New ostomy bag applied. Midline incision with omar intact and moderate amount of serosanguineous drainage on the dressing, area of pink/redness around the incision at the level of the umbilicus. I used a Q-tip to see if there is any area of weakness at the incision and there was one opening just below the umbilicus that had cloudy serosanguineous drainage and tracked 3.5 cm in and to the left, this was packed with 1/4 iodoform gauze and covered with 4x4's. Neuro: General: moves all extremities and no focal motor deficits Extrem: General: no calf tenderness and no edema Psych: Mental Status: mental status grossly normal Insight: Good insight present (Psych) Objective Data Vital Signs Vital Signs: Vital Signs - 24 hr 10/01/21 14:00 10/01/21 18:00 10/01/21 19:14 Temperature 97.0 F L 97.2 F L 97.2 F L Pulse Rate 78 76 79 Respiratory Rate 16 16 17 Blood Pressure 131/83 128/80 130/78 Pulse Oximetry 97 96 97 Oxygen Delivery 10/01/21 20:00 10/01/21 23:06 10/02/21 03:34 Temperature 98.5 F 97.9 F Pulse Rate 79 67 63 Respiratory Rate 17 20 17 Blood Pressure 158/80 H 132/74 Pulse Oximetry 97 94 96 Oxygen Delivery Room Air 10/02/21 09:55 10/02/21 08:00 Temperature 98.0 F Pulse Rate 69 Respiratory Rate 16 Blood Pressure 139/89 Pulse Oximetry 95
[2021-10-02 13:50] VITALS: BP 141/80; PULSE 69; RESP 16; TEMP 36.1; O2SAT 96
[2021-10-02] MEDS: MAGNESIUM HYDROXIDE SUSP 30 ML UDC PO (16:44)
[2021-10-02 18:00] VITALS: BP 152/90; PULSE 69; RESP 16; TEMP 36.8; O2SAT 95
[2021-10-02 20:00] VITALS: PULSE 69; RESP 16; O2SAT 95
[2021-10-02 22:00] VITALS: BP 138/83; PULSE 70; RESP 16; TEMP 36.4; O2SAT 96
[2021-10-03] VITALS (7 sets, daily range): BP systolic 118–142; BP diastolic 74–91; PULSE 62–71; RESP 12–18; TEMP 36.1–36.8; O2SAT 94–97
[2021-10-03] MEDS: ONDANSETRON INJ 4 MG/2 ML VIAL IV PUSH ×3 (00:25→21:16)
[2021-10-03] MEDS: HYDROcodone/acetaminophen (*CRX) 10-325 MG TABLET 1 TAB PO ×5 (00:25→20:35)
[2021-10-03] MEDS: HYDROcodone/acetaminophen (*CRX) 5-325 MG TABLET 1 TAB PO ×2 (06:21→23:24)
[2021-10-03] MEDS: FAMOTIDINE 20 MG/2 ML VIAL IV PUSH ×2 (08:04→20:30)
[2021-10-03] MEDS: ENOXAPARIN 40 MG/0.4 ML SYRINGE SUB-Q (08:04)
[2021-10-03 08:41] LABS: Hematocrit 37.9 % (42.0-52.0); Hemoglobin 12.6 g/dL (14.0-18.0); Mean Corpuscular HGB Conc 33.2 g/dl (32-36); Mean Corpuscular Hemoglobin 30.1 pg (26-34); Mean Corpuscular Volume 90.5 fl (80-100); Mean Platelet Volume 9.7 fl (7.4-10.4); Platelet Count Result 291 k/mm3 (150-375); Red Blood Count 4.19 M/mm3 (4.6-6.20); White Blood Count 10.2 K/mm3 (4.5-10.0)
[2021-10-03 08:54] LABS: Anion Gap 6 mmol/L (8-16); Blood Urea Nitrogen 11 mg/dL (9-20); Carbon Dioxide 29 mmol/L (22-30); Chloride 100 mmol/L (98-107); Estimated CRCL calculation 129 ml/min; Estimated Glomerular Filt Rate > 60; Glucose 111 mg/dL (65-110); Potassium 4.1 mmol/L (3.4-5.0); Sodium 135 mmol/L (137-145)
--- NOTE | 2021-10-03 15:24 | PM.IMPN ---
Progress Note: A&P Assessment and Plan (1) Diverticulitis of colon with perforation: Code(s): K57.20 - Diverticulitis of large intestine with perforation and abscess without bleeding Status: Acute Assessment and Plan: -Diverticulitis with recurrent perforation without abscess, general surgery consult pending, 3rd episode in 10 years -s/p sigmoidectomy with ostomy placement 09/28 -Continue current pain regimen with norco and morphine prn, well controlled -increased redness with clear drainage noted at incision site 10/02, now improved. MRSA swab ordered and pending Continue zosyn for now (2) Tobacco abuse: Code(s): Z72.0 - Tobacco use Status: Chronic Assessment and Plan: Smoking cessation discussed Plan DVT prophylaxis with lovenox GI prophylaxis with PPI Code status full code Subjective Date/time seen: 10/03/21 15:24 Patient examined, chart reviewed. Patient given milk of Mag last night, is now having liquid stool output. Patient reports pain is well controlled. Wound appears slightly erythematous, however improved since yesterday. Iodine packing noted. No other complaints Review of Systems Review of Systems: 10 point ROS obtained, negative unless otherwise specified per HPI Exam Const: General: comfortable, no acute distress and awake Orientation/consciousness: patient oriented x3 Resp: Effort & Inspection: normal respiratory effort Auscultation: clear to auscultation bilaterally Cardio: Rate: regular rate Rhythm: regular rhythm GI: Inspection: non-distended and incision (iodine packing noted, erythema around incision improved, no drainage) GI Palp: Yes Soft to palpation, Yes Tenderness to palpation present (GI) (less tender, improving) and No Guarding due to palpation present (GI) Auscultation: abnormal bowel sounds Other: stoma pink and moist with gas in bag, liquid stool noted. Hypoactive BS. Neuro: General: moves all extremities and no focal motor deficits Extrem: General: no calf tenderness and no edema Psych: Mental Status: mental status grossly normal Insight: Good insight present (Psych) Objective Data Vital Signs Vital Signs: Vital Signs - 24 hr 10/02/21 18:00 10/02/21 20:00 10/02/21 22:00 Temperature 98.2 F 97.6 F Pulse Rate 69 69 70 Respiratory Rate 16 16 16 Blood Pressure 152/90 H 138/83 Pulse Oximetry 95 95 96 Oxygen Delivery Room Air 10/03/21 01:49 10/03/21 06:32 10/03/21 10:08 Temperature 97.9 F 97.9 F 98.2 F Pulse Rate 65 62 71 Respiratory Rate 18 12 17 Blood Pressure 142/81 H 118/74 128/91 H Pulse Oximetry 97 96 97 Oxygen Delivery 10/03/21 08:00 10/03/21 14:18 10/03/21 14:42 Temperature 96.9 F L Pulse Rate 68 Respiratory Rate 18 Blood Pressure 121/91 H Pulse Oximetry 96 95 Oxygen Delivery Room Air Room Air Intake/Output Intake/Output: Intake & Output 09/30/21 10/01/21 10/02/21 10/03/21 23:59 23:59 23:59 23:59 Intake Total 3420 2410 2260 600 Output Total 200 Balance 3420 2410 2060 600 Meds/Results Medications: Active Medications Generic Name Dose Route Start Last Admin Trade Name Freq PRN Reason Stop Dose Admin Acetaminophen 650 mg 10/01/21 14:00 Acetaminophen 325 Mg Tablet PO Q6H PRN Mild Pain (1-3) or Fever Hydrocodone Bitart/Acetaminophen 1 tab 10/01/21 14:00 10/03/21 06:21 Hydrocodone/Acetaminophen (*Crx) 5-325 Mg Tablet PO 1 tab Q4H PRN Administration Pain Rated 4-6 Hydrocodone Bitart/Acetaminophen 1 tab 10/01/21 14:00 10/03/21 15:08 Hydrocodone/Acetaminophen (*Crx) 10-325 Mg Tablet PO 1 tab Q4H PRN Administration Pain Rated 7-10 Enoxaparin Sodium 40 mg 09/28/21 09:00 10/03/21 08:04 Enoxaparin 40 Mg/0.4 Ml Syringe SUB-Q 40 mg DAILY ELGIN Administration Famotidine 20 mg 09/28/21 21:00 10/03/21 08:04 Famotidine 20 Mg/2 Ml Vial IV PUSH 20 mg Q12HR ELGIN Administration Piperacillin/Tazobactam/
--- NOTE | 2021-10-03 15:37 | PM.PNGS ---
Progress Note: A&P Assessment and Plan (1) Diverticulitis of colon with perforation: Code(s): K57.20 - Diverticulitis of large intestine with perforation and abscess without bleeding Status: Acute Assessment and Plan: Slowly improving. Abdominal pain continues to improve daily. Ostomy now with gas & stool output. Gave a dose of milk of magnesia yesterday. We have started packing the draining opening in the midline incision with quarter-inch iodoform daily. Continue IV Zosyn. (will finish antibiotics Wednesday or early Wednesday. He was advanced to soft low-fiber diet today. Pathology discussed in detail. Encouraged to continue increasing activity daily. (2) Tobacco abuse: Code(s): Z72.0 - Tobacco use Status: Chronic Assessment and Plan: Encourage cessation Subjective Subjective Date/Time Seen: 10/03/21 15:37 Post Op day: POD#6 Patient reports: tolerating liquids well (Now trying soft diet), flatus and bowel movement (Into ostomy bag) Review of Systems Review of Systems: All systems reviewed & are unremarkable except as noted in HPI and below Exam Const: General: comfortable, no acute distress and awake Orientation/consciousness: patient oriented x3 Resp: Effort & Inspection: normal respiratory effort Auscultation: clear to auscultation bilaterally Cardio: Rate: regular rate Rhythm: regular rhythm GI: Inspection: non-distended GI Palp: Yes Soft to palpation, Yes Tenderness to palpation present (GI) (continues to be less tender daily, now primarily tender near incision) and No Guarding due to palpation present (GI) Auscultation: normal bowel sounds Other: stoma pink and moist with gas and brown stool in bag. . Midline incision with omar intact and moderate amount of serosanguineous drainage on the dressing, area of pink/redness around the incision at the level of the umbilicus. (nurses will do a daily dressing change with packing using with 1/4 iodoform gauze and covered with 4x4's). Neuro: General: moves all extremities and no focal motor deficits Extrem: General: no calf tenderness and no edema Psych: Mental Status: mental status grossly normal Insight: Good insight present (Psych) Objective Data Vital Signs Vital Signs: Vital Signs - 24 hr 10/02/21 18:00 10/02/21 20:00 10/02/21 22:00 Temperature 36.8 C 36.4 C Pulse Rate 69 69 70 Respiratory Rate 16 16 16 Blood Pressure 152/90 H 138/83 Pulse Oximetry 95 95 96 Oxygen Delivery Room Air 10/03/21 01:49 10/03/21 06:32 10/03/21 10:08 Temperature 36.6 C 36.6 C 36.8 C Pulse Rate 65 62 71 Respiratory Rate 18 12 17 Blood Pressure 142/81 H 118/74 128/91 H Pulse Oximetry 97 96 97 Oxygen Delivery 10/03/21 08:00 10/03/21 14:18 10/03/21 14:42 Temperature 36.1 C L Pulse Rate 68 Respiratory Rate 18 Blood Pressure 121/91 H Pulse Oximetry 96 95 Oxygen Delivery Room Air Room Air Intake/Output Intake/Output: Intake & Output 09/30/21 10/01/21 10/02/21 10/03/21 23:59 23:59 23:59 23:59 Intake Total 3420 2410 2260 600 Output Total 200 Balance 3420 2410 2060 600 Meds/Results Medications: Active Medications Generic Name Dose Route Start Last Admin Trade Name Freq PRN Reason Stop Dose Admin Acetaminophen 650 mg 10/01/21 14:00 Acetaminophen 325 Mg Tablet PO Q6H PRN Mild Pain (1-3) or Fever Hydrocodone Bitart/Acetaminophen 1 tab 10/01/21 14:00 10/03/21 06:21 Hydrocodone/Acetaminophen (*Crx) 5-325 Mg Tablet PO 1 tab Q4H PRN Administration Pain Rated 4-6 Hydrocodone Bitart/Acetaminophen 1 tab 10/01/21 14:00 10/03/21 15:08 Hydrocodone/Acetaminophen (*Crx) 10-325 Mg Tablet PO 1 tab Q4H PRN Administration Pain Rated 7-10 Enoxaparin Sodium 40 mg 09/28/21 09:00 10/03/21 08:04 Enoxaparin 40 Mg/0.4 Ml Syringe SUB-Q 40 mg DAILY ELGIN Administration Famotidine 20 mg 09/28/21 21:00 10/03/21 08:04 Famotidine 20 Mg/2
[2021-10-04] MEDS: MORPHINE SULFATE (*CRX) 2 MG/ML INJ IV PUSH (02:55)
[2021-10-04] MEDS: HYDROcodone/acetaminophen (*CRX) 10-325 MG TABLET 1 TAB PO ×2 (04:20→11:21)
[2021-10-04 05:19] VITALS: BP 144/86; PULSE 70; RESP 12; TEMP 36.7; O2SAT 97
[2021-10-04] MEDS: ONDANSETRON INJ 4 MG/2 ML VIAL IV PUSH ×2 (05:22→11:22)
[2021-10-04] MEDS: HYDROcodone/acetaminophen (*CRX) 5-325 MG TABLET 1 TAB PO ×2 (06:30→15:29)
[2021-10-04 07:50] LABS: Basophils Percent Auto 0.4 % (0.2-1.2); Eosinophils Absolute Auto 0.3 K/mm3 (0-0.3); Eosinophils Percent Auto 3.2 % (0-4.4); Hematocrit 37.7 % (42.0-52.0); Hemoglobin 12.4 g/dL (14.0-18.0); Immature Granulocyte Absolute 0.14 K/mm3 (0.00-0.031); Immature Granulocyte Percent A 1.4 % (0-0.5); Lymphocytes Absolute Auto 1.32 K/mm3 (0.9-3.2); Lymphocytes Percent Auto 12.9 % (18.3-44.2); Mean Corpuscular HGB Conc 32.9 g/dl (32-36); Mean Corpuscular Hemoglobin 29.8 pg (26-34); Mean Corpuscular Volume 90.6 fl (80-100); Mean Platelet Volume 9.9 fl (7.4-10.4); Monocytes Absolute Auto 0.9 K/mm3 (0.1-0.6); Monocytes Percent Auto 8.4 % (2.6-8.5); Neutrophils Absolute Auto 7.5 K/mm3 (1.3-6.7); Neutrophils Percent Auto 73.7 % (45.5-73.1); Platelet Count Result 290 k/mm3 (150-375); Red Blood Count 4.16 M/mm3 (4.6-6.20); Red Cell Distribution Width 14.1 % (11.5-14.5); White Blood Count 10.2 K/mm3 (4.5-10.0)
[2021-10-04] MEDS: FAMOTIDINE 20 MG/2 ML VIAL IV PUSH (08:40)
[2021-10-04] MEDS: ENOXAPARIN 40 MG/0.4 ML SYRINGE SUB-Q (08:40)
[2021-10-04 10:00] VITALS: BP 117/84; PULSE 63; RESP 16; TEMP 36.5; O2SAT 96
--- NOTE | 2021-10-04 10:36 | PM.DS ---
DS: Admitting Diagnosis Discharge Date 10/04/2021 Admitting Diagnosis Diverticulitis with perforation DS: Summary Hospital Course Reason for hospitalization: Diverticulitis with perforation Hospital Course: 56-year-old male presented with acute abdominal pain. Imaging concerning for diverticulitis with perforation. General surgery consulted, status post sigmoidectomy with ostomy placement 09/28. Postop patient noted have some mild redness near the umbilicus, iodine packing was placed with improvement. Patient completed course of Zosyn. Patient initially had some trouble with stool output, resolved with milk of magnesium. Patient discharge home with pain medications in stable condition. Time Spent with Patient Time attestation: Total time spent providing and/or coordinating discharge services: Exam Const: General: comfortable, no acute distress and awake Orientation/consciousness: patient oriented x3 Resp: Effort & Inspection: normal respiratory effort Auscultation: clear to auscultation bilaterally Cardio: Rate: regular rate Rhythm: regular rhythm GI: Inspection: non-distended and incision (iodine packing noted, erythema around incision improved, no drainage) GI Palp: Yes Soft to palpation, Yes Tenderness to palpation present (GI) (less tender, improving) and No Guarding due to palpation present (GI) Auscultation: abnormal bowel sounds Other: stoma pink and moist with gas in bag, liquid stool noted. Hypoactive BS. Neuro: General: moves all extremities and no focal motor deficits Extrem: General: no calf tenderness and no edema Psych: Mental Status: mental status grossly normal Insight: Good insight present (Psych) DS: Data Data Completed and Pending Completed studies during hospitalization: Pending at discharge 09/28/21 18:05 Surgical [PTH] Routine Labs on day of discharge: Labs from last 24 hours 10/04/21 07:44 WBC 10.2 H RBC 4.16 L Hgb 12.4 L Hct 37.7 L MCV 90.6 MCH 29.8 MCHC 32.9 RDW 14.1 Plt Count 290 MPV 9.9 Immature Gran % (Auto) 1.4 H Neut % (Auto) 73.7 H Lymph % (Auto) 12.9 L [place] % (Auto) 8.4 Eos % (Auto) 3.2 Baso % (Auto) 0.4 Lymph # (Auto) 1.32 [place] # (Auto) 0.9 H Eos # (Auto) 0.3 Baso # (Auto) 0.0 Abs Immat Gran (auto) 0.14 H Absolute Neuts (auto) 7.5 H Absolute Nucleated RBC 0.0 Nucleated RBC % 0.0 Discharge Plan Discharge Attending physician on discharge: Roman Oconnor Consulting providers: Vanesa Mcintosh ; Tha Ortez Discharging Clinician: Roman Oconnor Patient Disposition: Home, Self-Care Activity: as tolerated and other - see discharge instructions Diet: low fiber Patient Instructions: Antibiotic Form Stand Alone Forms: General Discharge Information Follow-up/Referrals: Tha Ortez MD [Physician] - Vanesa Mcintosh DO [Physician] - Discharge Medications: New oxycodone 5 mg capsule 10 mg PO Q6H PRN (Reason: pain) 7 Days Qty: 56 0RF acetaminophen 500 mg capsule 1,000 mg PO Q6H Qty: 240 3RF meloxicam 15 mg tablet 15 mg PO DAILY 14 Days Qty: 14 0RF No Action No Home Medications Date of admission: 09/28/21 13:05 Primary Care Provider: PHYSICIAN,OPERATIONS SUPERVISOR Admitting Provider: Evelin Luna Attending physician on admission: Roman Oconnor Condition: Guarded Prognosis
--- NOTE | 2021-10-04 11:39 | PM.PNGS ---
Progress Note: A&P Assessment and Plan (1) Diverticulitis of colon with perforation: Code(s): K57.20 - Diverticulitis of large intestine with perforation and abscess without bleeding Status: Acute Assessment and Plan: continuing to improve. Abdominal pain continues to improve daily. Ostomy now with gas & stool output. We have started packing the draining opening in the midline incision with quarter-inch iodoform daily. Continue IV Zosyn to stop 2:00 p.m. today then home on 2 more days of oral antibiotics. He was advanced to soft low-fiber diet yesterday. Pathology discussed in detail. Encouraged to continue increasing activity daily. (2) Tobacco abuse: Code(s): Z72.0 - Tobacco use Status: Chronic Assessment and Plan: Encourage cessation Today he stated that he thinks he can stop. Subjective Subjective Date/Time Seen: 10/04/21 10:39 Post Op day: POD#6 Patient reports: no new complaints, pain is less, tolerating a regular diet and bowel movement ( into ostomy bag.) Exam Const: General: comfortable, no acute distress and awake Orientation/consciousness: patient oriented x3 Resp: Effort & Inspection: normal respiratory effort Auscultation: clear to auscultation bilaterally Cardio: Rate: regular rate Rhythm: regular rhythm GI: Inspection: non-distended GI Palp: Yes Soft to palpation, Yes Tenderness to palpation present (GI) (continues to be less tender daily, now primarily tender near incision) and No Guarding due to palpation present (GI) Auscultation: normal bowel sounds Other: stoma pink and moist with gas and brown stool in bag. . Midline incision with omar intact and moderate amount of serosanguineous/yellow,cloudy drainage on the dressing, area of pink/redness around the incision at the level of the umbilicus seems to be improving. (nurses/ patient and will do a daily dressing change with packing using with 1/4 iodoform gauze and covered with 4x4's). Neuro: General: moves all extremities and no focal motor deficits Extrem: General: no calf tenderness and no edema Psych: Mental Status: mental status grossly normal Insight: Good insight present (Psych) Objective Data Vital Signs Vital Signs: Vital Signs - 24 hr 10/03/21 14:18 10/03/21 14:42 10/03/21 20:05 Temperature 36.1 C L 36.6 C Pulse Rate 68 66 Respiratory Rate 18 18 Blood Pressure 121/91 H 129/78 Pulse Oximetry 96 95 94 Oxygen Delivery Room Air 10/03/21 20:00 10/03/21 22:52 10/03/21 23:31 Temperature 36.1 C L Pulse Rate 69 Respiratory Rate 18 Blood Pressure 119/74 Pulse Oximetry 95 Oxygen Delivery Room Air Room Air 10/04/21 05:19 10/04/21 08:40 10/04/21 10:00 Temperature 36.7 C 36.5 C Pulse Rate 70 63 Respiratory Rate 12 16 Blood Pressure 144/86 H 117/84 Pulse Oximetry 97 96 Oxygen Delivery Room Air Intake/Output Intake/Output: Intake & Output 10/01/21 10/02/21 10/03/21 10/04/21 23:59 23:59 23:59 23:59 Intake Total 2410 2260 850 220 Output Total 200 Balance 2410 2060 850 220 Meds/Results Medications: Active Medications Generic Name Dose Route Start Last Admin Trade Name Freq PRN Reason Stop Dose Admin Acetaminophen 650 mg 10/01/21 14:00 Acetaminophen 325 Mg Tablet PO Q6H PRN Mild Pain (1-3) or Fever Hydrocodone Bitart/Acetaminophen 1 tab 10/01/21 14:00 10/04/21 06:30 Hydrocodone/Acetaminophen (*Crx) 5-325 Mg Tablet PO 1 tab Q4H PRN Administration Pain Rated 4-6 Hydrocodone Bitart/Acetaminophen 1 tab 10/01/21 14:00 10/04/21 11:21 Hydrocodone/Acetaminophen (*Crx) 10-325 Mg Tablet PO 1 tab Q4H PRN Administration Pain Rated 7-10 Enoxaparin Sodium 40 mg 09/28/21 09:00 10/04/21 08:40 Enoxaparin 40 Mg/0.4 Ml Syringe SUB-Q 40 mg DAILY ELGIN Administration Famotidine 20 mg 09/28/21 21:00 10/04/21 08:40 Famotidine 20 Mg/2 Ml Vial IV PUSH 20 mg Q12HR ELGIN
[2021-10-04 14:00] VITALS: BP 129/78; PULSE 70; RESP 16; TEMP 36.6; O2SAT 95
== END 2021-10-04 16:15 | disposition home or self-care (01) | DRG 331 ==
LOC: ANHED 06:33 → ANH2MED 06:40
PROVIDERS: Admitting Provider Surgery; Emergency Provider Emergency Medicine; Visit Provider Internal Medicine
PROC: 0DTN0ZZ Resection of Sigmoid Colon, Open Approach (ICD-10-PCS; CPT 49000; principal; 2021-09-28 16:00)
DX: K57.20 Diverticulitis of large intestine with perforation and abscess without bleeding (principal); E66.9 Obesity, unspecified; F17.210 Nicotine dependence, cigarettes, uncomplicated; Z68.33 Body mass index [BMI] 33.0-33.9, adult; Z87.442 Personal history of urinary calculi
CPT/HCPCS: 36415; 74176; 74177; 80048; 80053; 81001; 83605; 83690; 85025; 85027; 86850; 86900; 86901; 87040; 87081; 88307; 96361; 96365; 96366; 96367; 96372; 96375; 96376; 99285; A9270; C9113; J0131; J0330; J1100; J1170; J1650; J1741; J2250; J2270; J2405; J2543; J2704; J3010; J3480; J7030; J7040; J7120; Q9967

== ENCOUNTER 2021-12-11 10:01 | Outpatient (CLI) | payer BC, SELFPAY ==
--- NOTE | 2021-12-11 10:45 | ECG_ITS ---
Measurements Intervals [place] Rate: 62 P: 60 MI: 167 QRS: -12 QRSD: 94 T: 52 QT: 404 QTc: 410 Interpretive Statements SINUS RHYTHM BASELINE ARTIFACT- I, II, AVR, AVL NORMAL ECG NO PREVIOUS ECG AVAILABLE FOR COMPARISON Electronically Signed On 12-11-2021 11:07:11 CDT by Saleem Manzano D.O.
[2021-12-11 11:26] LABS: Basophils Percent Auto 0.2 % (0.2-1.2); Eosinophils Absolute Auto 0.3 K/mm3 (0-0.3); Eosinophils Percent Auto 4.3 % (0-4.4); Hematocrit 45.3 % (42.0-52.0); Hemoglobin 15.2 g/dL (14.0-18.0); Immature Granulocyte Absolute 0.01 K/mm3 (0.00-0.031); Immature Granulocyte Percent A 0.2 % (0-0.5); Lymphocytes Absolute Auto 1.64 K/mm3 (0.9-3.2); Mean Corpuscular HGB Conc 33.6 g/dl (32-36); Mean Corpuscular Hemoglobin 29.3 pg (26-34); Mean Corpuscular Volume 87.3 fl (80-100); Mean Platelet Volume 9.1 fl (7.4-10.4); Monocytes Absolute Auto 0.6 K/mm3 (0.1-0.6); Monocytes Percent Auto 9.4 % (2.6-8.5); Neutrophils Absolute Auto 3.8 K/mm3 (1.3-6.7); Neutrophils Percent Auto 59.9 % (45.5-73.1); Platelet Count Result 298 k/mm3 (150-375); Red Blood Count 5.19 M/mm3 (4.6-6.20); Red Cell Distribution Width 13.4 % (11.5-14.5); White Blood Count 6.3 K/mm3 (4.5-10.0)
[2021-12-11 11:36] LABS: Anion Gap 13 mmol/L (8-16); Blood Urea Nitrogen 12 mg/dL (9-20); Carbon Dioxide 22 mmol/L (22-30); Chloride 102 mmol/L (98-107); Estimated Glomerular Filt Rate > 60; Glucose 85 mg/dL (65-110); Potassium 4.2 mmol/L (3.4-5.0); Sodium 137 mmol/L (137-145)
== END 2021-12-11 10:02 | disposition home or self-care (01) ==
PROVIDERS: Visit Provider Surgery
DX: K57.20 Diverticulitis of large intestine with perforation and abscess without bleeding (principal); Z93.3 Colostomy status
CPT/HCPCS: 36415; 80048; 85025; 86850; 86900; 86901; 93005

== ENCOUNTER 2021-12-24 20:58 | Inpatient (IN) | payer BC, SELFPAY ==
--- NOTE | 2021-12-11 10:07 | PC.NURSE ---
PRE-OP INSTRUCTIONS, PLEASE READ CAREFULLY Report to the Outpatient Waiting Room, entrance under the green pavilion located off [facility], at time _0830_ on date _12/24/21_. Planned Procedure Time: _1030_. PACK A SMALL OVERNIGHT BAG AND LEAVE IN THE CAR Time changes happen often and if your time is changed the preop area will call you the afternoon before. - You and your visitor will be asked to self-screen and do not enter if you have any COVID symptoms. - We encourage only one visitor and NO visitors under age 16 are allowed at this time. Your visitor will receive communication by the phone number that is given day of service. - The patient visitor is requested to social distance or may leave the building when not with patient due to restrictions. - A mask is required within the hospital. -VISITING HOURS 8AM-8PM Patients may have clear liquids (water, carbonated beverages, clear teas, apple juice) until 3 hours prior to surgery (0730 AM) with a maximum of 20 ounces. - No food from midnight until time of surgery Take the following medications with a SIP of water the morning of surgery: __TYLENOL IF NEEDED___ Medications to discontinue per physician __N/A , Date to take last dose Please no deodorant, or body powder the day of surgery. No jewelry (including any body piercings) or valuables the day of surgery, leave them at home. Please take a shower or bath the night before, or the morning of, surgery with an antibacterial soap. Wear comfortable, loose fitting clothing. Children are encouraged to wear pajamas. - Jewelry must be removed prior to entering the operating room. Rings and piercings that are not removed may be cut off. - The hospital will not accept responsibility for valuables. - Please leave all valuables, including medications, at home the day of surgery. If you are going home after surgery, a licensed nascar driver must drive you home. - NO public transportation without another adult. - We recommend that an adult stay with you for 24 hours following discharge. - We also recommend that you do not drive, make important decision, drink alcoholic beverages, or take any drugs that were not prescribed by your health care provider for at least 24 hours after your discharge time. Follow any additional instructions given to you from your surgeon. DIET, PRE-OP ANTIBIOTICS, BOWEL PREP, HIBICLENS SHOWER NIGHT BEFORE AND AM OF SURGERY If you or anyone in your household have experienced Covid symptoms in the past week, please notify your surgeon or the nurse liaison at the phone number below for possible testing. Instructions given to ___PT and asked if any additional questions and then verbalized understanding. Patient advised to call surgeon office or pre surgery nurse liaison [phone] if any additional questions.
[2021-12-11 10:31] VITALS: BP 136/88; PULSE 66; RESP 20; TEMP 36.8; O2SAT 99; BMI 34.3
--- NOTE | 2021-12-22 17:19 | PM.IMHP ---
H&P: HPI History of Present Illness Date/Time: 12/22/21 17:19 Chief Complaint: Desires colostomy closure Narrative: the patient is a 56-year-old man who presented in September of this year with acute diverticulitis and perforation. Instead of improving, his symptoms worsened with medical therapy. He was taken to surgery on September 20 and sigmoidectomy with Keerthi procedure was performed. Pathology showed diverticulitis with perforation. The patient had undergone colonoscopy in September of 2019 which was negative under than diverticular disease. He has healed well from his Keerthi procedure and is now taken back to surgery for closure of end descending colostomy. Review of Systems Review of Systems: All systems reviewed & are unremarkable except as noted in HPI and below ( HPI and those items noted below) Constitutional: Constitutional: Denies chills and Denies fever(s) Cardiovascular: Cardiovascular: Denies chest pain, Denies diaphoresis, Denies dyspnea and Denies paroxysmal nocturnal dyspnea Respiratory: Respiratory: Denies chest congestion, Denies cough and Denies dyspnea Integumentary/Breasts: Skin/Breast: Denies lesions and Denies rash PMFSH Past Medical History Medical History Diverticulitis Episode of perforated diverticulitis with abscess about 7-8 years ago treated at [facility]. Obesity Surgical History Surgical History History of colon resection Sigmoid colon resection with end descending colostomy on 09/28/21. History of colonoscopy 7-[address] Cm in [place]. Family History Family History Sibling Leukemia Mother Diabetes mellitus Social History Social History Social History: The patient lives at home with his . 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 Does not have an established PCP - previously was followed by Dr. Hamm. Smoking packs per day: 1 Smoking cigarettes per day: 20.0 Years smoked: 30 Smoking pack-years: 30.00 Smoking status: Former smoker Tobacco type: cigarettes Second hand tobacco smoke exposure: No Smoking end date: 09/26/21 Alcohol intake: current Drinks per week: 2 Alcohol use details: Occasional alcohol use. Not daily. Substance use: never Substance use type: does not use Gender identity (if verbalized by the patient): Male Spiritual care concerns: No Meds Home Medications and Allergies Home Medications Medication Instructions Recorded Confirmed Type erythromycin 500 mg tablet 1 g PO .COMPLEX #6 tabs 11/17/21 12/11/21 Rx neomycin 500 mg tablet 1 g PO .COMPLEX #6 tabs 11/17/21 12/11/21 Rx acetaminophen 500 mg tablet 1,000 mg PO Q6H PRN Pain 12/11/21 12/11/21 History Allergies Allergy/AdvReac Type Severity Reaction Status Date / Time No Known Allergies Allergy Verified 12/11/21 10:26 Exam Const: General: comfortable, no acute distress, alert and awake HENMT: Head: normocephalic and atraumatic Mouth: Yes Normal oral and palatal mucosa present Eyes: Conjunctivae: conjunctivae normal Pupils: Equal, round and reactive pupils present EOM: EOMs intact bilaterally Neck: Neck: normal visual inspection, no lymphadenopathy and nontender Resp: Effort & Inspection: normal respiratory effort Auscultation: clear to auscultation bilaterally Cardio: Rate: regular rate Rhythm: regular rhythm Heart sounds: no gallops, no murmurs and no rubs GI: Inspection: non-distended, scar ( midline scar well healed) and other ( left lower quadrant colostomy, healed well) GI Palp: Yes Soft to palpation, No Tenderness to palpation present (GI), No Hepatomegaly present and No Splenomegaly present Auscultation: normal bowel sounds Skin: Lesions: no lesions Rashes: no rashes Neuro: General: no foca
--- NOTE | 2021-12-23 14:01 | WPDANESEPPF ---
Anes - Initial Pre Proc Eval Procedure: Operation Date: 12/24/21 10:30 Proposed Procedures p Closure of End Descending Colostomy - Tha Ortez MD Date/Time: 12/23/21 14:01 Surgeon: Tha Ortez MD Pre Op Diagnosis: Diverticulitis with Perforation Colostomy Status Patient Data Age: 56 Gender: M Height: 1.91 m Weight: 124.6 kg Last Vital Signs Temp 36.8 C 12/11/21 10:31 Pulse 66 12/11/21 10:31 Resp 20 12/11/21 10:31 BP 136/88 12/11/21 10:31 Pulse Ox 99 12/11/21 10:31 O2 Del Method Room Air 12/11/21 10:31 Allergies Allergy/AdvReac Type Severity Reaction Status Date / Time No Known Allergies Allergy Verified 12/24/21 08:50 Home Medications Medication Instructions Recorded Confirmed Type erythromycin 500 mg tablet 1 g PO .COMPLEX #6 tabs 11/17/21 12/24/21 Rx neomycin 500 mg tablet 1 g PO .COMPLEX #6 tabs 11/17/21 12/24/21 Rx acetaminophen 500 mg tablet 1,000 mg PO Q6H PRN Pain 12/11/21 12/11/21 History ECG: Date of Service: 12/11/21 Procedure(s): CA 12 lead EKG Accession Number(s): [id number] cc: ~ ? Measurements Intervals? [place]? Rate: ? 62 ? P:? 60 WA: ? 167? QRS:? -12 QRSD: ? 94 ? T:? 52 QT: ? 404? QTc:? 410? Interpretive Statements SINUS RHYTHM BASELINE ARTIFACT- I, II, AVR, AVL NORMAL ECG NO PREVIOUS ECG AVAILABLE FOR COMPARISON Electronically Signed On 12-11-2021 11:07:11 CDT by Saleem Manzano D.O. Patient hx anesthesia problems: none Family hx anesthesia problems: none Results Review: All pre-operative results and documents have been reviewed as part of the pre-operative evaluation. [facility] Past Medical History Medical History Diverticulitis Episode of perforated diverticulitis with abscess about 7-8 years ago treated at [facility]. Obesity Surgical History Surgical History History of colon resection Sigmoid colon resection with end descending colostomy on 09/28/21. History of colonoscopy 7-[address] Cm in [place]. Family History Family History Sibling Leukemia Mother Diabetes mellitus Social History Social History Social History: The patient lives at home with his . 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 Does not have an established PCP - previously was followed by Dr. Hamm. Smoking packs per day: 1 Smoking cigarettes per day: 20.0 Years smoked: 30 Smoking pack-years: 30.00 Smoking status: Former smoker Second hand tobacco smoke exposure: No Smoking end date: 09/26/21 Alcohol intake: never Drinks per week: 2 Alcohol use details: Occasional alcohol use. Not daily. Substance use: never Substance use type: does not use Living arrangements: with family Gender identity (if verbalized by the patient): Male Spiritual care concerns: No Anes - Eval Final PreProcedure Day of Procedure 12/23/21 14:01 Patient weight: obese Heart: regular rate and rhythm Lungs: clear to auscultation Airway: Mallampati scale Neurological: alert and oriented Last oral intake: >/= 8 hours ASA classification: III Emergent: yes Anesthetic plan: proceed Anesthesia type and monitoring: general ETT and standard monitoring Results Review: All pre-operative results and documents have been reviewed as part of the pre-operative evaluation. Informed Consent: The patient's anesthetic plan and its attendant risks and benefits were discussed with the patient/family/POA. Questions were solicited and answers provid
[2021-12-24] VITALS (10 sets, daily range): BP systolic 116–144; BP diastolic 79–99; PULSE 77–100; RESP 10–20; TEMP 36.1–37.1; O2SAT 94–100; BMI 33.3; BMI 34.0
--- NOTE | ~2021-12-24 | XR_ITS ---
EXAMINATION: XR cystogram 1-2V DATE: 12/30/2021 09:19 INDICATION: Enterovesical fistula. TECHNIQUE: Water-soluble contrast was gravity-infused through the patient's Wolf catheter. Multiple fluoroscopic images were obtained. Fluoroscopy exposure time was 0.2 minutes. The total number of anisha ges was 9. COMPARISON: CT abdomen and pelvis 09/28/2021 FINDINGS: There is no extraluminal leakage of contrast. No ureteral reflux. Skin omar are noted. IMPRESSION: 1. Normal cystogram. Reviewed, dictated and finalized at location A. ING WORKER IMPRESSION: 1. Normal cystogram.
[2021-12-24] MEDS: LACTATED RINGERS 1,000 ML 30 ML IV CONT ×2 (09:05→19:05)
[2021-12-24] MEDS: KETOROLAC 15 MG/ML VIAL (*BKC) IV PUSH (09:20)
[2021-12-24] MEDS: ACETAMINOPHEN 500 MG TABLET 1000 MG PO (09:20)
--- NOTE | 2021-12-24 10:03 | SUR.PREOP ---
1003- Patient, , and mother notified surgery start time will be delayed. All verbalized understanding.
[2021-12-24] MEDS: ALVIMOPAN 12 MG CAPSULE PO (10:24)
--- NOTE | 2021-12-24 10:40 | WPDHPUPDATE1 ---
History and Physical Update Update Date/Time: 12/24/21 10:40 History and Physical has been reviewed, including an updated exam of the patient. There are NO changes in the patient's condition. Risks, benefits, and alternatives have been discussed and questions answered. Patient agrees to proceed with procedure.
[2021-12-24] MEDS: ceFAZolin 3 GM/D5W 100 ML 100 ML IVPB (10:47)
[2021-12-24] MEDS: metroNIDAZOLE 500 MG/ISO 100ML 500 MG/100 ML BAG 100 MG IVPB (11:14)
--- NOTE | 2021-12-24 19:12 | W.PM.PROC2 ---
Procedure Note - Detailed Date of Procedure 12/24/21 Pre-op Diagnosis Diverticulitis with Perforation, Colostomy Status Post-op Diagnosis Other (Diverticulitis with perforation and peritonitis, colostomy status, enterovesical fistula) Procedure Performed Closure end descending colostomy with stapled 33 EEA colorectal anastomosis, takedown splenic flexure, small-bowel resection with anastomosis, closure enterovesical fistula. Surgeon Tha Ortez MD Prime Broker Kerry Em [facility], Steve Marquez [facility], Katia Reyes, [facility] Anesthesia General Indications Patient had a recurrent episode of diverticulitis in September of 2021. His diverticulitis presented with open perforation with fecal peritonitis. He will underwent a sigmoidectomy with Keerthi procedure. He did have a negative colonoscopy in 2019. He has healed from his surgery and is now taken back to the operating room for closure of his end descending colostomy. Findings This surgery was exceptionally difficult. He had tremendous scarring throughout. Even the abdominal wall had tremendous scar tissue formation. The original diverticulitis with perforation and peritonitis had healed forming an enterovesical fistula even after we had done the sigmoidectomy. This required small bowel resection as well as closure of the urinary bladder. The distal sigmoid and upper rectum were thickened and non pliable. I tried anastomosis to the upper rectum twice and in neither instance was the bowel suitable for stapled anastomosis due to the heavy scarring and inflammation that had taken place previously. He had to have a full splenic flexure takedown to allow anastomosis of healthy appearing proximal left colon as most of his descending colon was scarred, small diameter, and prone to spastic contraction. He had a very narrow pelvis as well which made exposure difficult. The scar tissue led to significant blood loss of 300 cc which is 3 times more than usual for this surgery. The operation itself took 7-1/2 hours which is at least 3 times longer than usual. I had to attempt the anastomosis 3 different times before a suitable result occurred. Description of Procedure Patient was taken to surgery and induced into general anesthesia. He was placed in Chapo stirrups in lithotomy. Wolf catheter was placed. Rectal irrigation and rectal tube were placed. Prep and drape was carried out. Attention was 1st turned to his end descending colostomy. Incision was made at the mucocutaneous junction around the colostomy. Dissection was carried through the skin and down into the subcutaneous. It was as early as this that it was noted that he had dense difficult scar tissue. The mobilization of the colostomy was quite difficult. A lot of dissection and cautery over a clamp was carried out. The dissection was carried circumferentially around the colostomy each time getting deeper into the abdominal wall until finally I was able to put a finger into the peritoneal cavity and then continued the dissection by dividing adhesions over my finger. Eventually the colostomy was completely freed. I closed the colostomy with 4-0 silk interrupted suture. The colostomy end was then dunked into the abdominal cavity. The surgical team changed outer gloves and we proceeded to the laparotomy. I excised the entire previous midline incision scar. This was a long scar extending from well above the umbilicus to nearly the pubis. I excised the old scar and then carefully dissected through the midline fascia. I was eventually able to enter the peritoneal cavity safely. I then opened the wound the rest of the way with a finger in the abdominal cavity elevating the fascia and peritoneum. There were several PDS sutures still present from September although all had lost their blue coloration. These were all removed as they were found. I then took down omental adhesions from the anterior abdominal wall. There were numerous extensive small bowel a
[2021-12-24] MEDS: fentaNYL CITRATE INJ (*CRX) 100 MCG/2 ML VIAL 25 MCG IV PUSH ×4 (19:28→19:48)
[2021-12-24] MEDS: HYDROmorphone HCL INJ (*CRX) 1 MG/ML SYR IV PUSH ×4 (19:59→22:55)
[2021-12-24] MEDS: LACTATED RINGERS 1,000 ML 150 ML IV CONT (21:07)
[2021-12-24] MEDS: FAMOTIDINE 20 MG/2 ML VIAL IV PUSH (21:34)
[2021-12-25] MEDS: HYDROmorphone HCL INJ (*CRX) 1 MG/ML SYR IV PUSH ×5 (00:33→09:45)
[2021-12-25] MEDS: LACTATED RINGERS 1,000 ML 150 ML IV CONT ×2 (03:34→08:38)
[2021-12-25 07:02] LABS: Hematocrit 44.9 % (42.0-52.0); Hemoglobin 15.3 g/dL (14.0-18.0); Mean Corpuscular HGB Conc 34.1 g/dl (32-36); Mean Corpuscular Hemoglobin 28.8 pg (26-34); Mean Corpuscular Volume 84.4 fl (80-100); Mean Platelet Volume 9.4 fl (7.4-10.4); Platelet Count Result 256 k/mm3 (150-375); Red Blood Count 5.32 M/mm3 (4.6-6.20); White Blood Count 13.2 K/mm3 (4.5-10.0)
[2021-12-25 07:13] LABS: Anion Gap 6 mmol/L (8-16); Blood Urea Nitrogen 16 mg/dL (9-20); Carbon Dioxide 24 mmol/L (22-30); Chloride 102 mmol/L (98-107); Estimated CRCL calculation 106 ml/min; Estimated Glomerular Filt Rate > 60; Glucose 153 mg/dL (65-110); Potassium 4.4 mmol/L (3.4-5.0); Sodium 132 mmol/L (137-145)
--- NOTE | 2021-12-25 08:07 | WPDANESPN ---
Anes - Prog Note Post-Op Date/Time: 12/25/21 08:07 Vital Signs: Last Vital Signs Temp 37.1 C 12/24/21 21:47 Pulse 100 12/24/21 21:47 Resp 20 12/24/21 21:47 BP 139/99 H 12/24/21 21:47 Pulse Ox 95 12/24/21 21:47 O2 Del Method Room Air 12/24/21 21:24 O2 Flow Rate 10 12/24/21 19:35 Pain Score (VAS): 5 I/O: Intake & Output 12/24/21 12/25/21 12/25/21 23:59 07:59 15:59 Intake Total 500 1000 Output Total 200 700 Balance 300 300 Laboratory Tests 12/25/21 06:21 12/25/21 06:21 12/25/21 12/25/21 06:21 06:21 WBC 13.2 H RBC 5.32 Hgb 15.3 Hct 44.9 MCV 84.4 MCH 28.8 MCHC 34.1 RDW 13.0 Plt Count 256 MPV 9.4 Sodium 132 L Potassium 4.4 Chloride 102 Carbon Dioxide 24 Anion Gap 6 L BUN 16 Creatinine 1.00 Estim Creat Clear Calc 106 Estimated GFR > 60 Glucose 153 H Calcium 8.0 L Patient Feedback: Patient satisfied with anesthetic care.
[2021-12-25] MEDS: FAMOTIDINE 20 MG/2 ML VIAL IV PUSH ×2 (08:38→22:06)
[2021-12-25] MEDS: ENOXAPARIN 40 MG/0.4 ML SYRINGE SUB-Q (08:38)
[2021-12-25] MEDS: IBUPROFEN IV 800 MG/200 ML 800 MG/200 ML BAG 400 MG IVPB ×3 (10:42→23:35)
--- NOTE | 2021-12-25 10:47 | PC.NURSE ---
pain 8/10 scale, iv calador given per PRN orders, Dr Ortez is in surgery, pain meds administered as ordered, dilaudid not lasting the pt 2 hours
[2021-12-25] MEDS: KCL 40 MEQ/D5/0.9% SOD CHL 1,000 ML 80 ML IV CONT ×2 (11:45→23:20)
[2021-12-25 11:59] VITALS: RESP 18
[2021-12-25] MEDS: MORPHINE SULFATE PCA (*CRX) 30 MG/30 ML SYR IV CONT ×2 (11:59→21:49)
[2021-12-25 13:00] VITALS: PULSE 88; RESP 18; O2SAT 97
[2021-12-25 14:00] VITALS: BP 134/94; PULSE 88; RESP 18; TEMP 36.3; O2SAT 97
[2021-12-25 14:30] VITALS: PULSE 77; RESP 18; O2SAT 98
--- NOTE | 2021-12-25 17:23 | PM.PNGS ---
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 Will start morphine sulfate EMERGENCY OPERATOR. Patient to get up today. He is still NPO with NG tube and will continue his Wolf catheter due to the bladder repair. Recheck labs exam and wound tomorrow. Expect patient will be here several days. 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 Also explained the length of the surgery and that it took 3 attempts to accomplish a suitable colorectal anastomosis. He is uncomfortable this morning. Exam Const: General: cooperative, no acute distress and uncomfortable; No confusion Orientation/consciousness: patient oriented x3 and No confusion GI: Inspection: non-distended and incision (Bulky dressing dry and intact) GI Palp: Yes Soft to palpation, Yes Tenderness to palpation present (GI) (Diffusely tender), No Guarding due to palpation present (GI) and No Rebound tenderness present Auscultation: absent bowel sounds Neuro: General: patient oriented x3, no focal motor deficits and No confusion Extrem: General: no calf tenderness and no edema Psych: Affect: normal affect Insight: Good insight present (Psych) Judgement: Good judgement present (Psych) Objective Data Vital Signs Vital Signs: Vital Signs - 24 hr 12/24/21 19:05 12/24/21 19:20 12/24/21 19:35 Temperature 36.1 C L Pulse Rate 99 93 94 Respiratory Rate 10 L 17 20 Blood Pressure 132/91 H 140/79 116/99 H Pulse Oximetry 97 100 99 Oxygen Delivery Simple Face Mask Simple Face Mask Simple Face Mask Oxygen Flow Rate 10 10 10 12/24/21 19:50 12/24/21 20:05 12/24/21 20:20 Temperature Pulse Rate 92 89 93 Respiratory Rate 13 10 L 10 L Blood Pressure 118/86 135/96 H 144/97 H Pulse Oximetry 95 94 97 Oxygen Delivery Room Air Room Air Room Air Oxygen Flow Rate 12/24/21 20:35 12/24/21 21:24 12/24/21 21:47 Temperature 37.1 C Pulse Rate 89 89 100 Respiratory Rate 11 L 11 L 20 Blood Pressure 134/85 139/99 H Pulse Oximetry 94 94 95 Oxygen Delivery Room Air Room Air Oxygen Flow Rate 12/25/21 11:59 12/25/21 14:00 Temperature 36.3 C L Pulse Rate 88 Respiratory Rate 18 18 Blood Pressure 134/94 H Pulse Oximetry 97 Oxygen Delivery Oxygen Flow Rate Intake/Output Intake/Output: Intake & Output 12/22/21 12/23/21 12/24/21 12/25/21 23:59 23:59 23:59 23:59 Intake Total 750 2200 Output Total 200 1550 Balance 550 650 Meds/Results Medications: Active Medications Generic Name Dose Route Start Last Admin Trade Name Freq PRN Reason Stop Dose Admin Alvimopan 12 mg 12/25/21 21:00 Alvimopan 12 Mg Capsule PO 01/01/22 21:01 Q12HR ELGIN Enoxaparin Sodium 40 mg 12/25/21 09:00 12/25/21 08:38 Enoxaparin 40 Mg/0.4 Ml Syringe SUB-Q 40 mg DAILY ELGIN Administration Famotidine 20 mg 12/24/21 21:00 12/25/21 08:38 Famotidine 20 Mg/2 Ml Vial IV PUSH 20 mg Q12HR ELGIN Administration Ibuprofen 800 mg in 200 mls @ 400 mls/hr 12/24/21 20:58 12/25/21 15:36 Caldolor 800 Mg/200 Ml IVPB 400 mls/hr Q6H PRN Administration Pain Rated 1-3 Morphine Sulfate 30 mg in 30 mls @ 1 mls/hr 12/25/21 10:44 12/25/21 11:59 Morphine Sulfate Church Worker IV CONT 1 mg/hr PRN PRN 1 mls/hr EMERGENCY OPERATOR Management Administration Protocol 1 MG/HR Potassium Chloride/Dextrose/Sod Cl 1,000 mls @ 80 mls/hr 12/25/21 10:50 12/25/21 11:45 Kcl 40 Meq/D5ns IV CONT 80 mls/hr
[2021-12-25 21:49] VITALS: RESP 20
[2021-12-25] MEDS: ALVIMOPAN 12 MG CAPSULE PO (22:09)
[2021-12-25 22:55] VITALS: BP 129/72; PULSE 93; RESP 18; TEMP 36.2; O2SAT 96
[2021-12-26 06:00] VITALS: BP 148/80; PULSE 92; RESP 20; TEMP 36.4; O2SAT 98
[2021-12-26] MEDS: IBUPROFEN IV 800 MG/200 ML 800 MG/200 ML BAG 400 MG IVPB ×2 (07:00→14:21)
--- NOTE | 2021-12-26 07:36 | PM.PNGS ---
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 Assessment and Plan: large NG tube output yesterday but patient is passing gas. Will DC NG but keep NPO. Increase ambulation today. Start dressing changes. Continue to follow closely with daily labs and exam. Today's labs are pending. 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 Subjective Subjective Date/Time Seen: 12/26/21 07:36 Post Op day: 2 Patient reports: no new complaints ( nasogastric tube is main complaint), pain is less, flatus, no bowel movement and afebrile Exam Const: General: comfortable and no acute distress; No confusion Orientation/consciousness: patient oriented x3 and No confusion GI: Inspection: non-distended and incision ( serosanguineous oozing, no sign infection) GI Palp: Yes Soft to palpation, Yes Tenderness to palpation present (GI) ( diffusely tender), No Guarding due to palpation present (GI) and No Rebound tenderness present Auscultation: Hypoactive bowel sounds present Neuro: General: patient oriented x3, no focal motor deficits and No confusion Extrem: General: no calf tenderness and no edema Psych: Affect: normal affect Insight: Good insight present (Psych) Judgement: Good judgement present (Psych) Objective Data Vital Signs Vital Signs: Vital Signs - 24 hr 12/25/21 11:59 12/25/21 14:00 12/25/21 13:00 Temperature 36.3 C L Pulse Rate 88 88 Respiratory Rate 18 18 18 Blood Pressure 134/94 H Pulse Oximetry 97 97 Oxygen Delivery Room Air 12/25/21 13:00 12/25/21 14:30 12/25/21 21:49 Temperature Pulse Rate 88 77 Respiratory Rate 18 18 20 Blood Pressure Pulse Oximetry 97 98 Oxygen Delivery Room Air Room Air 12/25/21 22:55 Temperature 36.2 C L Pulse Rate 93 Respiratory Rate 18 Blood Pressure 129/72 Pulse Oximetry 96 Oxygen Delivery Intake/Output Intake/Output: Intake & Output 12/23/21 12/24/21 12/25/21 12/26/21 23:59 23:59 23:59 23:59 Intake Total 750 3430 200 Output Total 200 1850 2800 Balance 550 1580 -2600 Meds/Results Medications: Active Medications Generic Name Dose Route Start Last Admin Trade Name Freq PRN Reason Stop Dose Admin Alvimopan 12 mg 12/25/21 21:00 12/25/21 22:09 Alvimopan 12 Mg Capsule PO 01/01/22 21:01 12 mg Q12HR ELGIN Administration Enoxaparin Sodium 40 mg 12/25/21 09:00 12/25/21 08:38 Enoxaparin 40 Mg/0.4 Ml Syringe SUB-Q 40 mg DAILY ELGIN Administration Famotidine 20 mg 12/24/21 21:00 12/25/21 22:06 Famotidine 20 Mg/2 Ml Vial IV PUSH 20 mg Q12HR ELGIN Administration Ibuprofen 800 mg in 200 mls @ 400 mls/hr 12/24/21 20:58 12/26/21 07:00 Caldolor 800 Mg/200 Ml IVPB 400 mls/hr Q6H PRN Administration Pain Rated 1-3 Morphine Sulfate 30 mg in 30 mls @ 1 mls/hr 12/25/21 10:44 12/25/21 21:49 Morphine Sulfate Share Holder IV CONT 1 mg/hr PRN PRN 1 mls/hr EXPEDITION SUPERVISOR Management Administration Protocol 1 MG/HR Potassium Chloride/Dextrose/Sod Cl 1,000 mls @ 80 mls/hr 12/25/21 10:50 12/25/21 23:20 Kcl 40 Meq/D5ns IV CONT 80 mls/hr .[id number] ELGIN Administration Naloxone HCl 0.1 mg 12/24/21 20:58 Naloxone Hcl 0.4 Mg/Ml Vial IV PUSH Q2M PRN Opiate Reversal Ondansetron HCl 4 mg 12/24/21 20:58 Ondansetron Inj 4 Mg/2 Ml Vial IV PUSH Q4H PRN Nausea And Vomiting
[2021-12-26 07:48] LABS: Anion Gap 9 mmol/L (8-16); Blood Urea Nitrogen 15 mg/dL (9-20); Carbon Dioxide 26 mmol/L (22-30); Chloride 105 mmol/L (98-107); Estimated CRCL calculation 97 ml/min; Estimated Glomerular Filt Rate > 60; Glucose 130 mg/dL (65-110); Sodium 140 mmol/L (137-145)
[2021-12-26 07:55] LABS: Hematocrit 39.9 % (42.0-52.0); Hemoglobin 13.7 g/dL (14.0-18.0); Mean Corpuscular HGB Conc 34.3 g/dl (32-36); Mean Corpuscular Hemoglobin 29.3 pg (26-34); Mean Corpuscular Volume 85.3 fl (80-100); Mean Platelet Volume 9.8 fl (7.4-10.4); Platelet Count Result 217 k/mm3 (150-375); Red Blood Count 4.68 M/mm3 (4.6-6.20); Red Cell Distribution Width 13.4 % (11.5-14.5); White Blood Count 9.6 K/mm3 (4.5-10.0)
[2021-12-26] MEDS: FAMOTIDINE 20 MG/2 ML VIAL IV PUSH ×2 (09:26→21:45)
[2021-12-26] MEDS: ENOXAPARIN 40 MG/0.4 ML SYRINGE SUB-Q (09:26)
[2021-12-26] MEDS: ALVIMOPAN 12 MG CAPSULE PO ×2 (09:26→21:45)
[2021-12-26] MEDS: KCL 40 MEQ/D5/0.9% SOD CHL 1,000 ML 80 ML IV CONT (13:06)
[2021-12-26 15:33] VITALS: RESP 16
[2021-12-26] MEDS: MORPHINE SULFATE PCA (*CRX) 30 MG/30 ML SYR IV CONT (15:33)
[2021-12-26 16:27] VITALS: BP 153/82; PULSE 73; RESP 16; TEMP 36.2; O2SAT 98
[2021-12-26 22:00] VITALS: BP 131/76; PULSE 80; RESP 20; TEMP 36.5; O2SAT 96
--- NOTE | 2021-12-27 00:55 | PC.NURSE ---
NG tube was removed on 12/26/21 at 715 am, to stay in place for seven days.
[2021-12-27] MEDS: KCL 40 MEQ/D5/0.9% SOD CHL 1,000 ML 80 ML IV CONT ×2 (03:00→16:45)
[2021-12-27 06:00] VITALS: BP 145/82; PULSE 70; RESP 20; TEMP 36.4; O2SAT 96
[2021-12-27 06:57] LABS: Hemoglobin 12.5 g/dL (14.0-18.0); Mean Corpuscular HGB Conc 33.8 g/dl (32-36); Mean Corpuscular Hemoglobin 29.4 pg (26-34); Mean Corpuscular Volume 87.1 fl (80-100); Mean Platelet Volume 9.3 fl (7.4-10.4); Platelet Count Result 202 k/mm3 (150-375); Red Blood Count 4.25 M/mm3 (4.6-6.20); Red Cell Distribution Width 13.4 % (11.5-14.5); White Blood Count 7.6 K/mm3 (4.5-10.0)
[2021-12-27 07:08] LABS: Anion Gap 6 mmol/L (8-16); Blood Urea Nitrogen 12 mg/dL (9-20); Calcium 8.1 mg/dL (8.4-10.2); Carbon Dioxide 22 mmol/L (22-30); Chloride 111 mmol/L (98-107); Estimated CRCL calculation 130 ml/min; Estimated Glomerular Filt Rate > 60; Glucose 115 mg/dL (65-110); Potassium 4.6 mmol/L (3.4-5.0); Sodium 139 mmol/L (137-145)
[2021-12-27] MEDS: ALVIMOPAN 12 MG CAPSULE PO ×2 (08:11→20:46)
[2021-12-27] MEDS: ENOXAPARIN 40 MG/0.4 ML SYRINGE SUB-Q (08:11)
[2021-12-27] MEDS: FAMOTIDINE 20 MG/2 ML VIAL IV PUSH ×2 (08:12→20:46)
[2021-12-27 08:14] VITALS: RESP 18
[2021-12-27] MEDS: MORPHINE SULFATE PCA (*CRX) 30 MG/30 ML SYR IV CONT (08:14)
--- NOTE | 2021-12-27 12:00 | PM.PNGS ---
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 Assessment and Plan: Will start clear liquids today. increase activity. 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 Abdominal pain controlled with INDUSTRIAL SOCIOLOGIST. Passing flatus. No BM. Exam GI: Inspection: incision ( Intact with omar, minimal serous output) GI Palp: Yes Soft to palpation, Yes Tenderness to palpation present (GI) ( incisional) and No Guarding due to palpation present (GI) Objective Data Vital Signs Vital Signs: Vital Signs - 24 hr 12/26/21 15:33 12/26/21 15:33 12/26/21 16:27 Temperature 36.2 C L Pulse Rate 73 Respiratory Rate 16 16 16 Blood Pressure 153/82 H Pulse Oximetry 98 Oxygen Delivery 12/26/21 22:00 12/27/21 06:00 12/27/21 08:14 Temperature 36.5 C 36.4 C Pulse Rate 80 70 Respiratory Rate 20 20 18 Blood Pressure 131/76 145/82 H Pulse Oximetry 96 96 Oxygen Delivery 12/27/21 08:10 Temperature Pulse Rate Respiratory Rate Blood Pressure Pulse Oximetry Oxygen Delivery Room Air Intake/Output Intake/Output: Intake & Output 12/24/21 12/25/21 12/26/21 12/27/21 23:59 23:59 23:59 23:59 Intake Total 750 3430 1630 1030 Output Total 200 1850 3650 1000 Balance 550 1580 -2020 30 Meds/Results Medications: Active Medications Generic Name Dose Route Start Last Admin Trade Name Freq PRN Reason Stop Dose Admin Alvimopan 12 mg 12/25/21 21:00 12/27/21 08:11 Alvimopan 12 Mg Capsule PO 01/01/22 21:01 12 mg Q12HR ELGIN Administration Enoxaparin Sodium 40 mg 12/25/21 09:00 12/27/21 08:11 Enoxaparin 40 Mg/0.4 Ml Syringe SUB-Q 40 mg DAILY ELGIN Administration Famotidine 20 mg 12/24/21 21:00 12/27/21 08:12 Famotidine 20 Mg/2 Ml Vial IV PUSH 20 mg Q12HR ELGIN Administration Ibuprofen 800 mg in 200 mls @ 400 mls/hr 12/24/21 20:58 12/26/21 14:51 Caldolor 800 Mg/200 Ml IVPB Infused Q6H PRN Infusion Pain Rated 1-3 Morphine Sulfate 30 mg in 30 mls @ 1 mls/hr 12/25/21 10:44 12/27/21 08:14 Morphine Sulfate Stud Driver IV CONT 1 mg/hr PRN PRN 1 mls/hr INDUSTRIAL SOCIOLOGIST Management Administration Protocol 1 MG/HR Potassium Chloride/Dextrose/Sod Cl 1,000 mls @ 80 mls/hr 12/25/21 10:50 12/27/21 03:00 Kcl 40 Meq/D5ns IV CONT 80 mls/hr .[id number] ELGIN Administration Naloxone HCl 0.1 mg 12/24/21 20:58 Naloxone Hcl 0.4 Mg/Ml Vial IV PUSH Q2M PRN Opiate Reversal Ondansetron HCl 4 mg 12/24/21 20:58 Ondansetron Inj 4 Mg/2 Ml Vial IV PUSH Q4H PRN Nausea And Vomiting Labs Labs: Laboratory Results - last 24 hr 12/27/21 12/27/21 06:45 06:45 WBC 7.6 RBC 4.25 L Hgb 12.5 L Hct 37.0 L MCV 87.1 MCH 29.4 MCHC 33.8 RDW 13.4 Plt Count 202 MPV 9.3 Sodium 139 Potassium 4.6 Chloride 111 H Carbon Dioxide 22 Anion Gap 6 L BUN 12 Creatinine 0.80 Estim Creat Clear Calc 130 Estimated GFR > 60 Glucose 115 H Calcium 8.1 L
[2021-12-27] MEDS: IBUPROFEN IV 800 MG/200 ML 800 MG/200 ML BAG 400 MG IVPB (13:38)
[2021-12-27 14:00] VITALS: BP 148/95; PULSE 70; RESP 16; TEMP 36.4; O2SAT 97
[2021-12-27 20:00] VITALS: BP 142/81; PULSE 68; RESP 16; TEMP 36.8; O2SAT 98
[2021-12-28] VITALS: BP 141/82; PULSE 71; RESP 16; TEMP 35.9; O2SAT 99
[2021-12-28 01:17] VITALS: RESP 18
[2021-12-28] MEDS: MORPHINE SULFATE PCA (*CRX) 30 MG/30 ML SYR IV CONT (01:17)
[2021-12-28 04:00] VITALS: BP 142/82; PULSE 73; RESP 16; TEMP 35.9; O2SAT 99
[2021-12-28] MEDS: KCL 40 MEQ/D5/0.9% SOD CHL 1,000 ML 80 ML IV CONT (05:27)
[2021-12-28] MEDS: IBUPROFEN IV 800 MG/200 ML 800 MG/200 ML BAG 400 MG IVPB (05:29)
[2021-12-28 05:50] LABS: Hematocrit 36.9 % (42.0-52.0); Hemoglobin 12.4 g/dL (14.0-18.0); Mean Corpuscular HGB Conc 33.6 g/dl (32-36); Mean Corpuscular Hemoglobin 29.3 pg (26-34); Mean Corpuscular Volume 87.2 fl (80-100); Mean Platelet Volume 9.3 fl (7.4-10.4); Platelet Count Result 229 k/mm3 (150-375); Red Blood Count 4.23 M/mm3 (4.6-6.20); Red Cell Distribution Width 13.2 % (11.5-14.5); White Blood Count 7.4 K/mm3 (4.5-10.0)
[2021-12-28 05:52] LABS: Sodium 137 mmol/L (137-145)
[2021-12-28 05:57] LABS: Anion Gap 6 mmol/L (8-16); Blood Urea Nitrogen 12 mg/dL (9-20); Calcium 8.3 mg/dL (8.4-10.2); Carbon Dioxide 24 mmol/L (22-30); Chloride 107 mmol/L (98-107); Estimated CRCL calculation 130 ml/min; Estimated Glomerular Filt Rate > 60; Glucose 106 mg/dL (65-110); Potassium 4.5 mmol/L (3.4-5.0)
[2021-12-28 08:36] VITALS: BP 127/82; PULSE 59; RESP 18; TEMP 36.4; O2SAT 97
[2021-12-28] MEDS: ENOXAPARIN 40 MG/0.4 ML SYRINGE SUB-Q (09:04)
[2021-12-28] MEDS: ALVIMOPAN 12 MG CAPSULE PO ×2 (09:04→21:40)
[2021-12-28] MEDS: FAMOTIDINE 20 MG/2 ML VIAL IV PUSH ×2 (09:05→21:41)
--- NOTE | 2021-12-28 09:13 | PM.PNGS ---
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 Ambulating well. Arm pain seemed to be worse when he was getting an infusion IV ibuprofen. Tolerating clear liquids. Exam GI: Inspection: incision ( Intact with omar, minimal serous output) GI Palp: Yes Soft to palpation, Yes Tenderness to palpation present (GI) ( incisional) and No Guarding due to palpation present (GI) Objective Data Vital Signs Vital Signs: Vital Signs - 24 hr 12/27/21 14:00 12/27/21 20:00 12/28/21 01:17 Temperature 36.4 C 36.8 C Pulse Rate 70 68 Respiratory Rate 16 16 18 Blood Pressure 148/95 H 142/81 H Pulse Oximetry 97 98 12/28/21 01:17 12/28/21 00:00 12/28/21 04:00 Temperature 35.9 C L 35.9 C L Pulse Rate 71 73 Respiratory Rate 18 16 16 Blood Pressure 141/82 H 142/82 H Pulse Oximetry 99 99 12/28/21 08:36 Temperature 36.4 C Pulse Rate 59 L Respiratory Rate 18 Blood Pressure 127/82 Pulse Oximetry 97 Intake/Output Intake/Output: Intake & Output 12/25/21 12/26/21 12/27/21 12/28/21 23:59 23:59 23:59 23:59 Intake Total 3430 1630 2570 1230 Output Total 1850 3650 1750 700 Balance 1580 -2019 820 530 Meds/Results Medications: Active Medications Generic Name Dose Route Start Last Admin Trade Name Freq PRN Reason Stop Dose Admin Alvimopan 12 mg 12/25/21 21:00 12/28/21 09:04 Alvimopan 12 Mg Capsule PO 01/01/22 21:01 12 mg Q12HR ELGIN Administration Enoxaparin Sodium 40 mg 12/25/21 09:00 12/28/21 09:04 Enoxaparin 40 Mg/0.4 Ml Syringe SUB-Q 40 mg DAILY ELGIN Administration Famotidine 20 mg 12/24/21 21:00 12/28/21 09:05 Famotidine 20 Mg/2 Ml Vial IV PUSH 20 mg Q12HR ELGIN Administration Ibuprofen 800 mg in 200 mls @ 400 mls/hr 12/24/21 20:58 12/28/21 06:10 Caldolor 800 Mg/200 Ml IVPB Infused Q6H PRN Infusion Pain Rated 1-3 Morphine Sulfate 30 mg in 30 mls @ 1 mls/hr 12/25/21 10:44 12/28/21 01:17 Morphine Sulfate Animal Feeder IV CONT 1 mg/hr PRN PRN 1 mls/hr TRAUMA DOCTOR Management Administration Protocol 1 MG/HR Potassium Chloride/Dextrose/Sod Cl 1,000 mls @ 80 mls/hr 12/25/21 10:50 12/28/21 05:27 Kcl 40 Meq/D5ns IV CONT 80 mls/hr .[id number] ELGIN Administration Naloxone HCl 0.1 mg 12/24/21 20:58 Naloxone Hcl 0.4 Mg/Ml Vial IV PUSH Q2M PRN Opiate Reversal Ondansetron HCl 4 mg 12/24/21 20:58 Ondansetron Inj 4 Mg/2 Ml Vial IV PUSH Q4H PRN Nausea And Vomiting Labs Labs: Laboratory Results - last 24 hr 12/28/21 12/28/21 05:14 05:14 WBC 7.4 RBC 4.23 L Hgb 12.4 L Hct 36.9 L MCV 87.2 MCH 29.3 MCHC 33.6 RDW 13.2 Plt Count 229 MPV 9.3 Sodium 137 Potassium 4.5 Chloride 107 Carbon Dioxide 24 Anion Gap 6 L BUN 12 Creatinine 0.80 Estim Creat Clear Calc 130 Estimated GFR > 60 Glucose 106 Calcium 8.3 L
[2021-12-28] MEDS: HYDROcodone/acetaminophen (*CRX) 5-325 MG TABLET 1 TAB PO (10:37)
[2021-12-28 15:00] VITALS: BP 139/86; PULSE 61; RESP 16; TEMP 36.4; O2SAT 96
[2021-12-28] MEDS: IBUPROFEN 600 MG TABLET PO (17:19)
[2021-12-28] MEDS: HYDROcodone/acetaminophen (*CRX) 10-325 MG TABLET 1 TAB PO (21:40)
[2021-12-28 21:49] VITALS: BP 133/87; PULSE 66; RESP 20; TEMP 36.4; O2SAT 96
--- NOTE | 2021-12-29 01:20 | PC.NURSE ---
Pt in bed. Pt has reported pain in the abdomen. Pt is up independently. Pt reports trouble sleeping. Pt has participated and contributed in plan of care throughout the shift. Pt has no other reports of and verbalizes no other needs at this time. Will continue to monitor pt.
[2021-12-29] MEDS: HYDROcodone/acetaminophen (*CRX) 10-325 MG TABLET 1 TAB PO (05:53)
[2021-12-29 06:00] VITALS: BP 138/87; PULSE 53; RESP 20; TEMP 36.6; O2SAT 97
[2021-12-29 06:12] LABS: Anion Gap 6 mmol/L (8-16); Blood Urea Nitrogen 12 mg/dL (9-20); Calcium 8.2 mg/dL (8.4-10.2); Carbon Dioxide 24 mmol/L (22-30); Chloride 107 mmol/L (98-107); Estimated CRCL calculation 130 ml/min; Estimated Glomerular Filt Rate > 60; Glucose 100 mg/dL (65-110); Potassium 3.9 mmol/L (3.4-5.0); Sodium 137 mmol/L (137-145)
[2021-12-29 06:18] LABS: Hematocrit 36.5 % (42.0-52.0); Hemoglobin 12.4 g/dL (14.0-18.0); Mean Corpuscular Volume 85.3 fl (80-100); Mean Platelet Volume 9.7 fl (7.4-10.4); Platelet Count Result 240 k/mm3 (150-375); Red Blood Count 4.28 M/mm3 (4.6-6.20); Red Cell Distribution Width 12.9 % (11.5-14.5); White Blood Count 6.9 K/mm3 (4.5-10.0)
[2021-12-29] MEDS: ENOXAPARIN 40 MG/0.4 ML SYRINGE SUB-Q (08:49)
[2021-12-29] MEDS: FAMOTIDINE 20 MG TABLET PO ×2 (09:45→20:53)
[2021-12-29] MEDS: HYDROcodone/acetaminophen (*CRX) 5-325 MG TABLET 1 TAB PO (12:50)
--- NOTE | 2021-12-29 13:27 | PM.PNGS ---
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 Continue daily dressing changes for incision. Increase activity and ambulate in the halls as tolerated. Possibly discharge in the next few days if he continues to improve. 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 Will get a cystogram tomorrow and remove his Wolf if this is negative. (3) Diverticulitis of colon with perforation: Qualifiers: Diverticulitis bleeding: unspecified bleeding status Qualified Code(s): K57.20 - Diverticulitis of large intestine with perforation and abscess without bleeding Code(s): K57.20 - Diverticulitis of large intestine with perforation and abscess without bleeding Status: Chronic Plan I have discussed the patient's case and plan of care with Dr. Ortez. Subjective Subjective Date/Time Seen: 12/29/21 13:27 Post Op day: 5 (Closure end descending colostomy with stapled 33 EEA colorectal anastomosis, takedown splenic flexure, small-bowel resection with anastomosis, closure enterovesical fistula) Patient reports: tolerating a regular diet (low fiber), flatus, bowel movement (early this morning) and afebrile Interval history: Chart reviewed. Patient seen and examined. He reports feeling well today. He has already tried a low-fiber diet this morning and tolerated this well. No nausea or vomiting. Postop pain well controlled. He is tolerating activity and ambulating. No complaints at this time. Review of Systems Review of Systems: All systems reviewed & are unremarkable except as noted in HPI and below Constitutional: Constitutional: Reports no additional constitutional complaints, Denies fever(s) and Denies weakness Cardiovascular: Cardiovascular: Reports no additional cardiovascular complaints, Denies chest pain and Denies leg edema Respiratory: Respiratory: Reports as per HPI, Reports no additional respiratory complaints, Denies cough and Denies dyspnea Gastrointestinal: Gastrointestinal: Reports as per HPI and Reports no additional gastrointestinal complaints Exam Const: General: comfortable and no acute distress Orientation/consciousness: patient oriented x3 Resp: Effort & Inspection: normal respiratory effort Auscultation: clear to auscultation bilaterally Cardio: Rate: regular rate Rhythm: regular rhythm GI: Inspection: non-distended and incision (Intact with omar, mod serosang drainage center of incision, no erytema) GI Palp: Yes Soft to palpation, Yes Tenderness to palpation present (GI) (incisional) and No Guarding due to palpation present (GI) Auscultation: normal bowel sounds Urinary Catheter: Urinary Catheter: patent and draining and urine dark Neuro: General: no focal motor deficits and No confusion Extrem: General: no calf tenderness and no edema Psych: Insight: Good insight present (Psych) Objective Data Vital Signs Vital Signs: Vital Signs - 24 hr 12/28/21 15:00 12/28/21 21:49 12/28/21 21:41 Temperature 97.6 F 97.6 F Pulse Rate 61 66 Respiratory Rate 16 20 Blood Pressure 139/86 133/87 Pulse Oximetry 96 96 Oxygen Delivery Room Air 12/29/21 06:00 12/29/21 08:50 Temperature 97.9 F Pulse Rate 53 L Respiratory Rate 20 Blood Pressure 138/87 Pulse Oximetry 97 Oxygen Delivery Room Air Intake/Output Intake/Output: Intake & Output 12/26/21 12/27/21 12/28/21 12/29/21 23:59 23:59 23:59 23:59 Intake Total 1630 2570 3880 120 Output Total 3650 1750 1250 -2019 820 2630 120 Meds/Results Medications: Active Medications Generic Name Dose Route Start Last Admin Trade Name Freq PRN Reason Stop Dose Admin Hydrocodone Bitart/Acetaminophen 1 tab 12/28/21 09:11 12/29/21 12:50 Hydrocodone/Jd
[2021-12-29 14:00] VITALS: BP 145/82; PULSE 63; RESP 14; TEMP 36.2; O2SAT 96
[2021-12-29] MEDS: IBUPROFEN 600 MG TABLET PO (16:16)
[2021-12-29] MEDS: POTASSIUM CHLORIDE 20 MEQ TABLET.ER 40 MEQ PO (17:49)
[2021-12-29] MEDS: traZODone HCL 50 MG TABLET PO (20:53)
[2021-12-29 21:51] VITALS: BP 137/81; PULSE 62; RESP 20; TEMP 36.6; O2SAT 97
[2021-12-30] MEDS: HYDROcodone/acetaminophen (*CRX) 10-325 MG TABLET 1 TAB PO ×2 (03:11→23:50)
[2021-12-30 05:39] VITALS: BP 146/85; PULSE 64; RESP 18; TEMP 36.4; O2SAT 97
[2021-12-30 06:35] LABS: Hematocrit 36.5 % (42.0-52.0); Hemoglobin 12.7 g/dL (14.0-18.0); Mean Corpuscular HGB Conc 34.8 g/dl (32-36); Mean Corpuscular Hemoglobin 29.1 pg (26-34); Mean Corpuscular Volume 83.5 fl (80-100); Mean Platelet Volume 9.6 fl (7.4-10.4); Platelet Count Result 246 k/mm3 (150-375); Red Blood Count 4.37 M/mm3 (4.6-6.20); Red Cell Distribution Width 12.8 % (11.5-14.5); White Blood Count 6.9 K/mm3 (4.5-10.0)
[2021-12-30 06:48] LABS: Anion Gap 9 mmol/L (8-16); Blood Urea Nitrogen 11 mg/dL (9-20); Calcium 8.3 mg/dL (8.4-10.2); Carbon Dioxide 23 mmol/L (22-30); Chloride 103 mmol/L (98-107); Estimated CRCL calculation 130 ml/min; Estimated Glomerular Filt Rate > 60; Glucose 100 mg/dL (65-110); Potassium 4.4 mmol/L (3.4-5.0); Sodium 135 mmol/L (137-145)
--- NOTE | 2021-12-30 09:04 | PM.PNGS ---
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 Continues to improve. Will decrease potassium supplement to 20 mEq b.i.d.. Wound is really only concern. Removed every other staple and did some probing of the areas of drainage with a Q-tip. There is no large area of undermining no are any purulent fluid noted. The colostomy closure site is healing well. Redressed with dry gauze. Will need to follow wound closely to avoid wound infection. 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 If no evidence of a leak, will DC Wolf. Hopefully patient can be discharged tomorrow. Subjective Subjective Date/Time Seen: 12/30/21 09:04 Post Op day: #6 Patient reports: feels better ( slept much better), pain is less, bowel movement and afebrile Exam Const: General: comfortable and no acute distress; No confusion Orientation/consciousness: patient oriented x3 and No confusion GI: Inspection: non-distended, incision ( every other staple removed, wound probed with Q-tip. Mostly serous ) and other ( probed with Q-tip, no significant tracking under the skin.) GI Palp: Yes Soft to palpation, No Guarding due to palpation present (GI) and No Rebound tenderness present Auscultation: normal bowel sounds Neuro: General: patient oriented x3, no focal motor deficits and No confusion Extrem: General: no calf tenderness and no edema Psych: Affect: normal affect Insight: Good insight present (Psych) Judgement: Good judgement present (Psych) Objective Data Vital Signs Vital Signs: Vital Signs - 24 hr 12/29/21 14:00 12/29/21 21:51 12/30/21 05:39 Temperature 36.2 C L 36.6 C 36.4 C L Pulse Rate 63 62 64 Respiratory Rate 14 20 18 Blood Pressure 145/82 H 137/81 146/85 H Pulse Oximetry 96 97 97 Intake/Output Intake/Output: Intake & Output 12/27/21 12/28/21 12/29/21 12/30/21 23:59 23:59 23:59 23:59 Intake Total 2570 3880 610 200 Output Total 1750 1250 1750 1250 Balance 820 1018 -4272 -7176 Meds/Results Medications: Active Medications Generic Name Dose Route Start Last Admin Trade Name Freq PRN Reason Stop Dose Admin Hydrocodone Bitart/Acetaminophen 1 tab 12/28/21 09:11 12/29/21 12:50 Hydrocodone/Acetaminophen (*Crx) 5-325 Mg Tablet PO 1 tab Q4H PRN Administration Pain Rated 4-6 Hydrocodone Bitart/Acetaminophen 1 tab 12/28/21 09:11 12/30/21 03:11 Hydrocodone/Acetaminophen (*Crx) 10-325 Mg Tablet PO 1 tab Q4H PRN Administration Pain Rated 7-10 Enoxaparin Sodium 40 mg 12/25/21 09:00 12/29/21 08:49 Enoxaparin 40 Mg/0.4 Ml Syringe SUB-Q 40 mg DAILY ELGIN Administration Famotidine 20 mg 12/29/21 09:00 12/29/21 20:53 Famotidine 20 Mg Tablet PO 20 mg Q12HR ELGIN Administration Ibuprofen 600 mg 12/28/21 09:11 12/29/21 16:16 Ibuprofen 600 Mg Tablet PO 600 mg Q6H PRN Administration Pain Rated 1-3 Morphine Sulfate 2 mg 12/28/21 09:11 Morphine Sulfate (*Crx) 2 Mg/Ml Inj IV PUSH Q2H PRN Pain Rated 4-6 Morphine Sulfate 4 mg 12/28/21 09:11 Morphine Sulfate (*Crx) 4 Mg/Ml Inj IV PUSH Q2H PRN Pain Rated 7-10 Naloxone HCl 0.1 mg 12/24/21 20:58 Naloxone Hcl 0.4 Mg/Ml Vial IV PUSH Q2M PRN Opiate Reversal Ondansetron HCl 4 mg 12/24/21 20:58 Ondansetron Inj 4 Mg/2 Ml Vial IV PUSH Q4H PRN Nausea And Vomiting Potassium Chloride 20 meq 12/30/21 17:00 Potassium Chloride 20 Meq Tablet.Er PO BIDWM ELGIN Trazodone HCl 50 mg 12/29/21 17:14 12/29/21 20:53 Trazodone Hcl 50 Mg Tablet PO 50 mg HS PRN Administration Insomnia Labs Labs: Laboratory Results - last 24 hr 12/30/21 12/30/21 05:48 05:48 WBC 6.9 RBC 4.37 L Hgb 12.7 L Hct 36.5
[2021-12-30] MEDS: FAMOTIDINE 20 MG TABLET PO ×2 (09:20→20:15)
[2021-12-30] MEDS: IBUPROFEN 600 MG TABLET PO (09:21)
[2021-12-30] MEDS: HYDROGEN PEROXIDE 3% SOLN(*SP) 473 ML BOTTLE (09:23)
[2021-12-30] MEDS: ENOXAPARIN 40 MG/0.4 ML SYRINGE SUB-Q (09:24)
--- NOTE | 2021-12-30 12:02 | PCNWS ---
Weekly nutritional screen. Patient is tolerating current Regular, low fiber diet with adequate intake and tolerating well. Answered some questions pt had regarding diet order. No other concerns. No weight loss reported. No nutritional needs at this time.
[2021-12-30 13:53] VITALS: BP 135/81; PULSE 70; RESP 16; TEMP 36.4; O2SAT 96
[2021-12-30] MEDS: HYDROcodone/acetaminophen (*CRX) 5-325 MG TABLET 1 TAB PO (16:03)
[2021-12-30] MEDS: POTASSIUM CHLORIDE 20 MEQ TABLET.ER PO (17:09)
[2021-12-30] MEDS: traZODone HCL 50 MG TABLET PO (20:15)
[2021-12-30 22:00] VITALS: BP 131/88; PULSE 91; RESP 16; TEMP 36.6; O2SAT 97
[2021-12-31 06:00] VITALS: BP 124/83; PULSE 70; RESP 16; TEMP 36.6; O2SAT 97
[2021-12-31] MEDS: IBUPROFEN 600 MG TABLET PO (06:31)
--- NOTE | 2021-12-31 07:03 | PM.DS ---
DS: Admitting Diagnosis Discharge Date 12/31/2021 Admitting Diagnosis diverticulitis with perforation and fecal peritonitis colostomy status DS: Discharge Diagnosis Discharge Diagnosis (1) Diverticulitis of colon with perforation: Qualifiers: Diverticulitis bleeding: unspecified bleeding status Qualified Code(s): K57.20 - Diverticulitis of large intestine with perforation and abscess without bleeding Code(s): K57.20 - Diverticulitis of large intestine with perforation and abscess without bleeding Status: Resolved (2) Colostomy status: Code(s): Z93.3 - Colostomy status Status: Resolved Assessment and Plan: patient underwent colostomy closure 12/24/[address] Ortez. This was a long difficult operation lasting nearly 8 hours. Beside the enterovesical fistula, there was a lot of adhesion and scarring. Dissection on to the more distal rectum was required before inadequate anastomosis could be achieved. Splenic flexure takedown was also performed. 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 He had a negative cystogram on 12/30/2021. Catheter was removed and he voided without difficulty following that. DS: Summary Hospital Course Hospital Course: The patient had a home bowel preparation and was taken to surgery on 12/24/2021. While this was expected to be a difficult procedure, it was considerably more difficult than expected. 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 This required small bowel resection as well as repair of the urinary bladder. Patient's upper rectum was heavily scarred and the anastomosis had to be redone 3 times before a successful 33 EEA end-to-end stapled anastomosis was able to be performed. Following surgery, the patient had a nasogastric tube which was removed on postop day 2. He was started on liquids on postop day 3 and this was slowly advanced. By the time of discharge he was on a regular diet. He was initially on a HAND SPRAYER for pain control this was slowly weaned and converted to oral antibiotics. At the time of discharge he is taking an occasional [place] or ibuprofen p.r.n. for pain. His Wolf catheter was left in place until postop day 6. . On 11/22 E had a cystogram which was negative and his catheter was removed. He voided without difficulty following this. He does still have some wound drainage in the area of the umbilicus. This it was watched closely in probed with Q-tip the last couple of days in the hospital. He has had every other staple removed from his abdominal incision. The rest incision seems to be healing well. This will be followed closely in the office following discharge. He also experienced hypokalemia during his stay and was on potassium supplementation. Potassium level was normal at the time of discharge. Status at Discharge Overall status at discharge: patient is progressing back to baseline Time Spent with Patient Time attestation: Total time spent providing and/or coordinating discharge services: Time spent: Less than 30 minutes DS: Data Data Completed and Pending Completed studies during hospitalization: Pending at discharge 12/24/21 13:51 Surgical [PTH] Routine Surgical [PTH] Routine Surgical [PTH] Routine Discharge Plan Discharge Attending physician on discharge: Tha Ortez Discharging Clinician: Tha Ortez Anticipated Discharge Date/Time: 12/31/21 07:10 Patient Disposition: Home, Self-Care Activity: may shower, no straining and as tolerated Diet: regular Wound Care Instructions: keep dressing dry, remove dressing to shower and change dressing daily Discharge Instructions: Ambulate 3-4 x per day and as tolerated. No liftin
[2021-12-31 07:39] LABS: Anion Gap 9 mmol/L (8-16); Blood Urea Nitrogen 13 mg/dL (9-20); Calcium 8.2 mg/dL (8.4-10.2); Carbon Dioxide 24 mmol/L (22-30); Chloride 104 mmol/L (98-107); Estimated CRCL calculation 117 ml/min; Estimated Glomerular Filt Rate > 60; Glucose 102 mg/dL (65-110); Potassium 4.1 mmol/L (3.4-5.0); Sodium 137 mmol/L (137-145)
[2021-12-31] MEDS: FAMOTIDINE 20 MG TABLET PO (08:05)
[2021-12-31] MEDS: POTASSIUM CHLORIDE 20 MEQ TABLET.ER PO (08:05)
== END 2021-12-31 09:37 | disposition home or self-care (01) | DRG 330 ==
LOC: ANH3MEDSUR 21:00
PROVIDERS: Surgery; Admitting Provider Surgery; Visit Provider Surgery
PROC: 0DB80ZZ Excision of Small Intestine, Open Approach (ICD-10-PCS; CPT 44620; principal; 2021-12-24 10:30)
DX: Z43.3 Encounter for attention to colostomy (principal); K57.20 Diverticulitis of large intestine with perforation and abscess without bleeding; N32.1 Vesicointestinal fistula; K66.0 Peritoneal adhesions (postprocedural) (postinfection); E87.6 Hypokalemia; Z87.891 Personal history of nicotine dependence; Z90.49 Acquired absence of other specified parts of digestive tract
CPT/HCPCS: 36415; 51600; 74430; 80048; 85027; 88307; A9270; C1729; J0330; J0690; J1100; J1170; J1650; J1741; J1885; J2250; J2270; J2405; J2704; J3010; J3480; J7120; Q9967

== ENCOUNTER 2024-05-01 13:05 | Emergency (ER) | payer BC, SELFPAY ==
[2024-05-01 13:13] VITALS: BP 130/91; PULSE 89; RESP 20; TEMP 36.4; O2SAT 98
--- NOTE | 2024-05-01 13:19 | ED_ITS ---
HPI - URI/Sore Throat General Chief Complaint: Upper Respiratory Infection Stated Complaint: Sinus Infection Symptoms Time Seen by Provider: 05/01/24 13:20 Source: patient and family Mode of arrival: ambulatory Limitations: no limitations History of Present Illness HPI Narrative: Benjamin is a 59-year-old male patient presenting to the clinic today with complaints cough, ear congestion, nasal congestion, sinus pressure, and chest congestion. States he has been having symptoms for approximately 9 days. Was coughing up some green phlegm. History of smoking-1 pack a day for ?a long time? MD elicited complaint: sore throat and nasal congestion Related Data Allergies Allergy/AdvReac Type Severity Reaction Status Date / Time No Known Allergies Allergy Verified 05/01/24 13:21 Review of Systems Review of Systems: Pertinent positives per HPI. Patient denies any fever, chills, rash, headache, visual changes, dizziness, cough, shortness of breath, chest pain, palpitations, nausea, vomiting, diarrhea, constipation, abdominal pain, or any urinary issues. [facility] Past Medical History Medical History (Reviewed 03/09/22 @ 08:51 by Kimberlee Grant, [facility]) Diverticulitis Episode of perforated diverticulitis with abscess about 7-8 years ago treated at [facility]. Obesity Surgical History Surgical History History of colostomy reversal closure end descending colostomy performed 12/24/21 History of colon resection Sigmoid colon resection with end descending colostomy on 09/28/21. History of colonoscopy 7-[address] Cm in [place]. Family History Family History Sibling Leukemia Mother Diabetes mellitus Social History Social History Social History: The patient lives at home with his . 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 Does not have an established PCP - previously was followed by Dr. Hamm. Smoking packs per day: 1 Smoking cigarettes per day: 20.0 Years smoked: 30 Smoking pack-years: 30.00 Smoking status: Former smoker Tobacco type: cigarettes Second hand tobacco smoke exposure: No Smoking end date: 12/25/21 Alcohol intake: current Drinks per week: 1 Alcohol use details: Occasional alcohol use. Not daily. Substance use: never Substance use type: does not use Lack of Transportation: No Lack of Food: Never True Current Housing: I Have Housing Concerned About Future Housing: No Difficulty Paying Gas/Electric Bills: No Difficulty Paying for Meds: No Currently Unemployed: No Education: High School Diploma/GED Difficulty w/ Childcare or Family Care: No Living arrangements: with family Occupation/Education: occupation Gender identity (if verbalized by the patient): Male Spiritual care concerns: No Comments At the time of my signature, I reviewed and agree with the nursing past medical, surgical, social, and family history. There is no relevant family history pertinent to the patient complaint. Exam Narrative: General: Well-developed, well nourished, in no apparent distress Head: Normocephalic, atraumatic Eyes: Pupils equally round and reactive to light bilaterally, EOM intact, sclera and conjunctive clear, no discharge, lids normal Ears: TMs intact and congested, ear canals clear, no drainage, grossly hearing normal. Nose: Nares patent, green nasal discharge, moderate inflammation, maxillary and frontal sinus tenderness. Mouth: Oral pharynx without lesions or masses, good dentition, MMM. Postnasal drip Neck: Supple, trachea midline, no enlargement of anterior or posterior cervical nodes, no thyroid masses or goiter palpable. Cardio: Regular rate and rhythm, s1 and s2 normal, no murmur appreciated. Resp: Expiratory wheezing, no rhonchi, rales,or rubs Course Course Emergency Course: Portions of this record may have been created with voice recognition software. Level of Care: Express Care Visit Vital Signs Vital signs: Vital Signs Temperature 36.4 C 05/01/24 13:13 Pulse Rate 89 05/01/24 13:13 Respiratory Rate 20 05/01/24 13:13 Blood Pressure 130/91 H 05/01/24 13:13 Pulse Oximetry 98 05/01/24 13:13 Oxygen Delivery Room Air 05/01/24 13:13 Temperature 36.4 C 05/01/24 13:13 Pulse Rate 89 05/01/24 13:13 Respiratory Rate 20 05/01/24 13:13 Blood Pressure 130/91 H 05/01/24 13:13 Pulse Oximetry 98 05/01/24 13:13 Oxygen Delivery Room Air 05/01/24 13:15 Vital signs reviewed MDM - URI/Sore Throat MDM Narrative Medical decision making narrative: At the time of visit patient is resting comfortably on the exam table. Patient appears to be nontoxic. Plan: I suspect patient has sinusitis/bronchitis. Prescription for Augmentin, prednisone, and albuterol inhaler was sent to the pharmacy. Supportive measures were discussed with the patient and they voiced understanding discharge instructions and agrees to treatment plan. Return precautions reviewed Differential Diagnosis Differential diagnosis: Likely upper respiratory infection, otitis media, sinusitis, viral infection, bronchitis, influenza, pharyngitis and other (COVID) Discharge Plan Discharge Clinical Impression: Sinobronchitis Patient Disposition: Home, Self-Care Condition: Stable Instructions: Antibiotic Form, Sinusitis (ED), Acute Bronchitis (ED) Additional Instructions: Take prescription medications only as prescribed-prednisone, Augmentin, and albuterol inhaler Increase fluids and stay well hydrated Tylenol/motrin for pain/fever Flonase and OTC antihistamines as directed Vicks vapor rub to open sinuses Sinus rinses for congestion Cepacol spray, cough drops, throat lozenges, warm tea with honey/lemon, gargle salt water to soothe throat BRAT diet for diarrhea Clear liquids x 24 hours then advance as tolerated for nausea/vomiting Go to the ED if you develop a worsening in your condition- high fever not controlled by Tylenol or Motrin, dehydration, weakness, lethargy, shortness of breath, or chest pain. Follow up with your PCP in 3-5 days if symptoms persist. Patient Language: Occitan Prescriptions: New azithromycin 250 mg tablet See Rx Instructions .ROUTE .COMPLEX Qty: 6 0RF Rx Instructions: For 250 mg dose pack: take 500 mg today (day 1), then 250 mg for 4 days (days 2-5) prednisone 20 mg tablet 40 mg PO DAILY 5 Days Qty: 10 0RF albuterol sulfate 90 mcg/actuation HFA aerosol inhaler 2 puff inhalation Q4-6H PRN (Reason: shortness of breath or wheezing) 30 Days Qty: 8.5 0RF Follow-up/Referrals: PHYSICIAN,MACHINE STUFFER [employer] [Primary Care Provider] - Time of Disposition: 13:20 Quality NIHSS Nursing Documentation ED NIHSS nursing documentation: reviewed/agree
== END 2024-05-01 13:25 | disposition home or self-care (01) ==
PROVIDERS: Emergency Provider Nurse Practitioner Family
DX: J32.9 Chronic sinusitis, unspecified (principal); J40 Bronchitis, not specified as acute or chronic; Z87.891 Personal history of nicotine dependence; E66.9 Obesity, unspecified; Z68.37 Body mass index [BMI] 37.0-37.9, adult
CPT/HCPCS: 99213; G0463